=== PATIENT | male | born 1955 | race Caucasian/White ===

== ENCOUNTER 2017-11-17 22:07 | Inpatient (IN) ==
[2017-11-18] MEDS ORDERED: D5% in Water 1,000 ML IVC PRN (03:33)
[2017-11-18] MEDS ORDERED: *HR* Dextrose 50 % in Water (Syg) 50 ML SYRINGE IVP PRN (03:33)
[2017-11-18] MEDS ORDERED: Dextrose Gel 15 GM/37.5 ML TUBE PO PRN ×2 (03:33)
--- NOTE | 2017-11-18 03:34 | Internal Med History&Physical ---
Date of Encounter: 11/18/17 Time of Encounter: 03:11 Internal Medicine - H&P: HPI Chief complaint: Shortness of breath Admitted From: Hospital to Hospital Transfer Plans for Post Hospital Care: Home History of present illness: Mr. Connor is a 61 year old male with past medical history of depression, Gerd , obesity, hypertension, CAD S/P CABG, osteoarthritis, hyperlipidemia, type II diabetes, CARRIE. Patient has a smoking history but is not a current smoker (quit about 25 years ago). He sees , who he states believes the patient may have COPD and is undergoing testing. He did not qualify for home oxygen during his last outpatient pulmonology visit. He presented to [facility] today with chief complaint of shortness of breath that has been occurring for about 3 days. He states he had nonproductive cough and shortness of breath. He reported sinus congestion as well. He went to the urgent care for this on Saturday and was given Keflex and cough syrup that was not relieving his symptoms. Patient states that his cough was so bad it was causing him pain in his rib area and keeping him up at night. He denies nausea , vomiting, diarrhea, fever. He does report chills. He denies any chest pain, hematuria, hematochezia, melena. He does have increased shortness of breath with exertion. Patient denies any recent sick contacts. Upon arrival to [facility], his vitals were as follows: temperature 98.4, pulse 103, respirations 24, blood pressure 165/70, pulse ox 80 % on room air. His oxygen saturation's were as low as 83%. Later oxygen saturation's increased to 92% on 2 L nasal cannula. He was given duonebs x2, 1 dose of Levaquin, acetaminophen, and blood cultures were obtained. EKG was done at the emergency department that showed sinus tachycardia with rate of 105 , first-degree AV block. Chest x-ray done at [facility] showed cardiomegaly, suspected left basilar opacity. Patient was transferred to [facility] at the request of the patient's family. Labs at [facility] were as follows: CBC: WBC 10.3, hemoglobin 11.6, hematocrit 34.9, platelets to 49, neutrophils 70.9%, lymphocytes 18.2% BMP: sodium 134, potassium 4.2, chloride 99, bicarb 26, glucose 183, B19, creatinine .81, GFR 102, calcium 9.1, albumin 3.5, glucose 183 BNP 324 troponin negative Past Med Surg Social Fam HX - Past Medical History Medical history: asthma, coronary artery disease, diabetes, hypertension, other Psychiatric history: no psych history - Past Surgical History Surgical History: no surgical history - Social History Smoking Status: Never smoker Smokeless Tobacco Status: No Alcohol use: none Drug use: none Internal Medicine - H&P: Meds Cyclobenzaprine [Flexeril] 10 mg PO TID #30 tablet 06/02/15 [Rx] Ibuprofen [Motrin] 800 mg PO Q8HR #30 tablet 06/02/15 [Rx] MethylPREDNISolone [Medrol] 4 mg PO DAILY 6 Days tablet 06/02/15 [Rx] Acetaminophen w/Cod 300-30 mg [Tylenol w/Codeine #3] 1 each PO Q8HR PRN #20 tablet 07/23/15 [Rx] Methocarbamol [Robaxin] 500 mg PO HS #20 tablet 07/23/15 [Rx] Ipratropium/Albuterol Neb [Duoneb] 3 ml IH Q4HR PRN #1 vial.neb 05/27/16 [Rx] predniSONE [Prednisone] 20 mg PO BID #8 tablet 05/27/16 [Rx] Promethazine/Dextromethorphan [Promethazine-Dm Syrup] 5 ml PO Q6HR PRN #120 ml 11/15/17 [Rx] cephALEXin [Keflex] 500 mg PO QID #40 capsule 11/15/17 [Rx] 3 Allergy/AdvReac Type Severity Reaction Status Date / Time No Known Allergies Allergy Verified 06/02/15 19:50 All Systems PM: A 10-system review of systems was performed and is negative for pertinent findings except as documented above in the HPI. - Constitutional Constitutional: as per HPI - EENT Eyes: as per HPI Ears: as per HPI Nose, mouth and throat: as per HPI - Breasts Breasts: as per HPI - Cardiovascular Cardiovascular ROS IM: as per HPI - Respiratory Respiratory: as per HPI - Gastrointestinal Gastrointestinal: as per HPI - Genitourinary Genitourinary ROS male: as per HPI - Musculoskeletal Musculoskeletal ROS IM: as per HPI - Integumentary Integumentary IM: as per HPI - Neurological Neurological ROS: as per HPI - Psychiatric Psychiatric: as per HPI - Endocrine Endocrine IM: as per HPI - Hematologic/Lymphatic Hematologic/Lymphatic: as per HPI - Allergic/Immunologic Allergic/Immunologic: as per HPI - Constitutional Vitals: Temp Pulse Resp BP Pulse Ox 98.0 F 87 20 151/59 95 11/18/17 02:59 11/18/17 02:59 11/18/17 02:59 11/18/17 02:59 11/18/17 02:59 General appearance: Present: mild distress (While respiratory distress), A&O X 3 , morbidly obese, pleasant, answers questions appropriately Exam: Significant abdominal obesity present. - Head Head exam: Present: atraumatic, normocephalic - Neck Neck exam general surgery: Present: supple, trachea midline - Respiratory Additional comments: Decreased breath sounds present throughout all lung bedoya. Mild Expiratory wheezing present and bilateral upper lobes - Cardiovascular Cardiovascular exam: Present: distant heart sounds - GI/Abdominal GI/Abdominal exam: Present: distended, normal bowel sounds, soft Additional comments: Significant abdominal obesity present. Abdomen is distended, nontender, normal bowel sounds present. - Extremities Exam Extremities exam: Present: pedal edema (+1 bilateral lower extremity pitting edema present.). Absent: cyanotic - Neurological Exam Neurological exam: Present: alert, oriented X3, no focal deficits - Psychiatric Psychiatric exam: Present: normal affect, normal mood Internal Med - H&P Results - Labs CBC & Chem 7: 11/18/17 03:50 11/18/17 03:50 - Assessment and plan (1) Sepsis Current Visit: Yes Status: Acute Assessment and plan: Patient transferred from [facility] at his request Tachycardia, tachypnea, suspected source of infection: left lung pneumonia patient failed outpatient treatment with antibiotics. Patient received 2 doses of duonebs, Tylenol, Levaquin at [facility]. Plan: blood cultures ordered at [facility], repeat blood cultures ordered here. Levaquin day 2 scheduled and PRN DuoNebs cough suppression, pain control IV methylprednisolone sputum culture pending check legionella, strep pneumo Ag Qualifiers: Sepsis type: sepsis due to unspecified organism Qualified Code(s): A41.9 - Sepsis, unspecified organism (2) Community acquired pneumonia Current Visit: Yes Status: Acute Assessment and plan: Plan as above Qualifiers: Laterality: left Lung location: lower lobe of lung Qualified Code(s): J18.1 - Lobar pneumonia, unspecified organism (3) COPD exacerbation Current Visit: Yes Status: Acute Assessment and plan: COPD exacerbation secondary to community acquired pneumonia. Plan as above (4) CARRIE (obstructive sleep apnea) Current Visit: Yes Status: Acute Assessment and plan: Patient wears his CPAP at home and brought it with him to the hospital. Will continue. (5) Type 2 diabetes mellitus Current Visit: Yes Status: Acute Assessment and plan: Hold metformin medium dose sliding scale insulin ACHS Accu checks Qualifiers: Diabetes mellitus skilled nursing insulin use: unspecified terminal make up operator insulin use status Diabetes mellitus complication status: with unspecified complications Qualified Code(s): E11.8 - Type 2 diabetes mellitus with unspecified complications (6) GERD (gastroesophageal reflux disease) Current Visit: Yes Status: Acute Assessment and plan: Continue home medications once verified Qualifiers: Esophagitis presence: esophagitis presence not specified Qualified Code(s) : K21.9 - Gastro-esophageal reflux disease without esophagitis (7) Obesity Current Visit: Yes Status: Chronic Qualifiers: Obesity type: due to excess calories Obesity classification: unspecified obesity classification Serious obesity comorbidity presence: with serious comorbidity Qualified Code(s): E66.09 - Other obesity due to excess calories (8) CAD (coronary artery disease) Current Visit: Yes Status: Acute Assessment and plan: S/P CABG continue home meds once verified Qualifiers: Coronary Disease-Associated Artery/Lesion type: bypass graft, autologous artery Associated angina: angina presence unspecified Qualified Code(s): I25.810 - Atherosclerosis of coronary artery bypass graft(s) without angina pectoris (9) Hyperlipidemia Current Visit: Yes Status: Acute Qualifiers: Hyperlipidemia type: unspecified Qualified Code(s): E78.5 - Hyperlipidemia , unspecified (10) Hypertension Current Visit: Yes Status: Acute Assessment and plan: Resumed home medications once verified PRN hydralazine Qualifiers: Hypertension type: essential hypertension Qualified Code(s): I10 - Essential (primary) hypertension (11) DVT prophylaxis Current Visit: Yes Status: Acute Assessment and plan: Heparin SQ - Time Spent With Patient Total time spent is greater than 50% in coordination of care (as documented) at patient's floor/unit and/or counseling patient:
[2017-11-18] MEDS ORDERED: Naloxone 0.4 MG/ML INJ IVP PRN (03:46)
[2017-11-18] MEDS ORDERED: Acetaminophen 325 MG TABLET PO PRN (03:46)
[2017-11-18] MEDS ORDERED: Menthol 9.1 MG LOZENGE PO PRN (03:46)
[2017-11-18] MEDS ORDERED: Ipratropium/Albuterol Neb 3 ML IH PRN (04:03)
[2017-11-18 04:05] LABS: Basophils # 0.1 K/mcL (0.0-0.2); Basophils % 0.6 %; Eosinophils # 0.1 K/mcL (0.0-0.6); Eosinophils % 1.5 %; Hematocrit 34.8 % (37.5-50.1); Hemoglobin 11.7 g/dL (12.9-16.9); Immature Granulocytes % 0.3 % (0-4); Lymphocytes # 2.1 K/mcL (0.6-4.6); Lymphocytes % 21.5 %; Mean Corpuscular HGB Conc 33.6 g/dL (31.6-35.5); Mean Corpuscular Hemoglobin 29.1 pg (28.0-33.3); Mean Corpuscular Volume 86.6 fL (83.0-100.0); Mean Platelet Volume 10.8 fL (9.4-12.4); Monocytes # 0.8 K/mcL (0.0-1.3); Neutrophils # 6.6 K/mcL (1.6-8.9); Platelet Count 253 K/mcL (140-400); Red Blood Count 4.02 M/mcL (4.19-5.50); Red Cell Distribution Width 15.8 % (11.5-14.5); Segmented Neutrophils % 68.1 %
[2017-11-18] MEDS: Insulin LISPRO 300 UNITS/3 ML VIAL SQ SCH ×5 (04:23→20:56)
[2017-11-18 04:26] LABS: BUN/Creatinine Ratio 12 (6-26); Blood Urea Nitrogen 9 mg/dL (8-23); Calcium 9.6 mg/dL (8.6-10.3); Carbon Dioxide 26 mEq/L (23-29); Chloride 100 mEq/L (98-107); Glucose 179 mg/dL (70-105); Osmolality,Calculated 281 (280-300); Potassium 3.8 mEq/L (3.5-5.1); Sodium 134 mEq/L (136-145); eGFR For African Americans > 60 (> 60); eGFR For Non-African Americans > 60 (> 60)
[2017-11-18] MEDS: *HR* Heparin 5,000 UNIT/ML VIAL SQ SCH ×3 (04:31→20:57)
[2017-11-18] MEDS: GuaiFENesin Liq 200 MG/10 ML UDC PO SCH ×3 (04:32→18:00)
--- NOTE | 2017-11-18 04:41 | Event Note ---
Date of Encounter: 11/18/17 Time of Encounter: 04:35 Patient was seen and examined. I agree with the H&P as written by the Resident Physician. Briefly, patient is 61 m who is being worked up for COPD in the outpatient setting, CAD s/p CABG, HLD, DM, CARRIE comes from [facility] with acute hypoxic resp failure. Been SOB for a couple of days or so. Nonproductive cough. Work up there showed LLL PNA. Given Levaquin and nebs and sent here. He is stable here needing 2 L O2 via nasal cannula. Please see H&P for a list of labs done at [facility]. A/O x3, NAD RRR. S1, S2, No m/r/g Diminished with exp wheezes Abd soft, NT, ND, +BS 1+ LE edema. 2+ DP Nonfocal Admit for acute hypoxic resp failure secondary to CAP/COPD exacerbation IV levaquin. IV solumedrol Nebs O2 support urine strep/legionella/sputum cx Blood cx collected at outside facility Insulin sliding scale Resume home meds once verified DVT ppx.
[2017-11-18] MEDS: Ipratropium/Albuterol Neb 3 ML IH SCH ×6 (08:01→23:58)
[2017-11-18] MEDS: MethylPREDNISolone 40 MG/ML VIAL IVP SCH ×2 (08:11→15:00)
[2017-11-18] MEDS: Levofloxacin 750 MG/150 ML 750 MG/150 ML BAG IVPB SCH (08:12)
[2017-11-18] MEDS: *HR* HYDROcodone/Acet 5/325 mg TABLET PO PRN ×2 (10:00→22:21)
--- NOTE | 2017-11-18 15:20 | Event Note ---
Date of Encounter: 11/18/17 Time of Encounter: 11:00 Patient seen and evaluated by nocturnalist earlier this morning and also by myself Patient is a 61-year-old female found to be hypoxic secondary to community acquired pneumonia. 1. CAP Continue IV Levaquin Continue Solu-Medrol and DuoNebs Sputum/blood cultures pending
[2017-11-18] MEDS ORDERED: DEXTROMETHORPHAN PO PRN (17:57)
[2017-11-18] MEDS ORDERED: PROMETHAZINE PO PRN (17:57)
[2017-11-18] MEDS: Lisinopril 20 MG TABLET PO SCH (18:38)
[2017-11-18] MEDS: traZODone 50 MG TABLET PO SCH (20:55)
[2017-11-18] MEDS: Pregabalin 75 MG CAPSULE PO SCH (20:55)
[2017-11-18] MEDS ORDERED: (Ropinirole Hcl [Requip Xl] 4 MG) PO SCH (21:00)
[2017-11-18] MEDS ORDERED: Benzonatate 100 MG CAPSULE PO PRN (23:07)
[2017-11-19] MEDS: MethylPREDNISolone 40 MG/ML VIAL IVP SCH ×3 (00:06→17:18)
[2017-11-19] MEDS: GuaiFENesin Liq 200 MG/10 ML UDC PO SCH ×4 (00:06→17:17)
[2017-11-19] MEDS: Ipratropium/Albuterol Neb 3 ML IH SCH ×5 (04:06→19:50)
[2017-11-19] MEDS: *HR* Heparin 5,000 UNIT/ML VIAL SQ SCH ×3 (07:19→21:32)
[2017-11-19] MEDS: Insulin LISPRO 300 UNITS/3 ML VIAL SQ SCH ×3 (07:44→17:18)
[2017-11-19] MEDS: Pregabalin 75 MG CAPSULE PO SCH ×2 (07:45→21:31)
[2017-11-19] MEDS: Lisinopril 20 MG TABLET PO SCH (07:45)
[2017-11-19] MEDS: Levofloxacin 750 MG/150 ML 750 MG/150 ML BAG IVPB SCH (07:46)
[2017-11-19] MEDS: Aspirin Enteric Coated 81 MG Tablet PO SCH (07:46)
[2017-11-19] MEDS: *HR* Pioglitazone 45 MG TABLET PO SCH (07:46)
[2017-11-19] MEDS: Insulin DETEMIR 100 UNIT/ML X5UNITS SQ SCH (08:07)
[2017-11-19] MEDS ORDERED: Lisinopril 20 MG TABLET PO SCH (09:00)
[2017-11-19] MEDS ORDERED: INSULIN DEGLUDEC 70 UNIT SQ SCH (09:00)
[2017-11-19] MEDS ORDERED: (Linagliptin [Tradjenta] 5 MG) PO SCH (09:00)
[2017-11-19] MEDS ORDERED: Albuterol 2.5 MG/3 ML NEBULIZER IH PRN (09:02)
--- NOTE | 2017-11-19 10:36 | Internal Med Progress Note ---
Date of Encounter: 11/19/17 Time of Encounter: 10:36 - Assessment and plan (1) COPD exacerbation Current Visit: Yes Status: Acute Assessment and plan: Improving. Taper down IV steroids as tolerated. Continue empiric IV antibiotics, breathing treatments, supplemental oxygen. Blood and sputum cultures negative. Face to face evaluation completed for home oxygen requirement. Patient would benefit from continuous home oxygen via nasal cannula at 2 L/m. He is noted to be ambulatory at home, would benefit from portable home oxygen. primary health organisation manager aware. (2) Community acquired pneumonia Current Visit: Yes Status: Acute Assessment and plan: Chest x-ray in the emergency room apparently showed suspected left basilar opacity. Continue IV Levaquin. Blood and sputum cultures negative. Check respiratory infection panel. Supportive care and supplemental oxygen. Qualifiers: Laterality: left Lung location: lower lobe of lung Qualified Code(s): J18.1 - Lobar pneumonia, unspecified organism (3) Sepsis Current Visit: Yes Status: Ruled-out Assessment and plan: Low suspicion. Patient presented with tachycardia and tachypnea, likely due to acute exacerbation of COPD. Cultures negative. Continue IV antibiotics. Qualifiers: Sepsis type: sepsis due to unspecified organism Qualified Code(s): A41.9 - Sepsis, unspecified organism (4) DVT prophylaxis Current Visit: Yes Status: Acute (5) Type 2 diabetes mellitus Current Visit: Yes Status: Acute Assessment and plan: Patient has steroid-induced hyperglycemia. Received first dose of basal insulin this morning. Continue current insulin regimen with Accu-Chek blood glucose monitoring. Diabetic diet. Expected blood sugars to improve with tapering down IV steroids. Qualifiers: Diabetes mellitus terminal gauger insulin use: with terminal gauger use Diabetes mellitus complication status: with hyperglycemia Qualified Code(s): E11.65 - Type 2 diabetes mellitus with hyperglycemia; Z79.4 - skilled nursing (current) use of insulin (6) CARRIE (obstructive sleep apnea) Current Visit: Yes Status: Chronic Assessment and plan: Patient is on nocturnal BiPAP at home, continue the same. (7) GERD (gastroesophageal reflux disease) Current Visit: Yes Status: Chronic Qualifiers: Esophagitis presence: esophagitis presence not specified Qualified Code(s) : K21.9 - Gastro-esophageal reflux disease without esophagitis (8) CAD (coronary artery disease) Current Visit: Yes Status: Chronic Qualifiers: Coronary Disease-Associated Artery/Lesion type: bypass graft [place] vs. transplanted heart: [place] heart Associated angina: without angina Qualified Code(s): I25.810 - Atherosclerosis of coronary artery bypass graft(s) without angina pectoris (9) Hyperlipidemia Current Visit: Yes Status: Chronic Qualifiers: Hyperlipidemia type: unspecified Qualified Code(s): E78.5 - Hyperlipidemia , unspecified (10) Hypertension Current Visit: Yes Status: Chronic Qualifiers: Hypertension type: essential hypertension Qualified Code(s): I10 - Essential (primary) hypertension - Time Spent With Patient Total time spent is greater than 50% in coordination of care (as documented) at patient's floor/unit and/or counseling patient: - Subjective Interval history: Improving shortness of breath, continues to have cough. Requiring supplemental oxygen at rest. No chest pain, fever, chills, leg swelling. - Constitutional Vitals: Temp Pulse Resp BP Pulse Ox 97.7 F 79 18 158/81 94 11/19/17 07:03 11/19/17 07:03 11/19/17 07:03 11/19/17 07:03 11/19/17 07:59 General appearance: Present: A&O X 3, morbidly obese, answers questions appropriately - Respiratory Respiratory exam: Present: decreased breath sounds (B/L decreased air entry). Absent: accessory muscle use, rales, rhonchi, wheezes - Cardiovascular Cardiovascular exam: Present: RRR, +S1, +S2. Absent: diastolic murmur, gallop, rubs, systolic murmur - GI/Abdominal GI/Abdominal exam: Present: normal bowel sounds, soft (obese), no peritoneal signs. Absent: distended, tenderness - Extremities Exam Extremities exam: Present: full ROM, pedal edema (nonpitting), warm, radial pulses palpable and symmetrical. Absent: calf tenderness, cyanotic - Neurological Exam Neurological exam: Present: CN II-XII intact, oriented X3, no focal deficits. Absent: pronater drift, facial droop, speech deficit - Skin Skin exam: Present: dry, intact Internal Medicine: Result - Labs CBC & Chem 7: 11/19/17 11:06 11/19/17 11:06 Consult Discharge Plan - Plan Referrals: Mukul Ortega MD [Primary Care Provider] -
[2017-11-19 11:20] LABS: Basophils % 0.2 %; Hematocrit 35.7 % (37.5-50.1); Hemoglobin 11.8 g/dL (12.9-16.9); Immature Granulocytes % 0.6 % (0-4); Lymphocytes # 1.4 K/mcL (0.6-4.6); Lymphocytes % 12.2 %; Mean Corpuscular HGB Conc 33.1 g/dL (31.6-35.5); Mean Corpuscular Hemoglobin 28.6 pg (28.0-33.3); Mean Corpuscular Volume 86.7 fL (83.0-100.0); Mean Platelet Volume 10.8 fL (9.4-12.4); Monocytes # 0.4 K/mcL (0.0-1.3); Monocytes % 3.7 %; Neutrophils # 9.5 K/mcL (1.6-8.9); Platelet Count 275 K/mcL (140-400); Red Blood Count 4.12 M/mcL (4.19-5.50); Red Cell Distribution Width 15.9 % (11.5-14.5); Segmented Neutrophils % 83.3 %
[2017-11-19 11:39] LABS: BUN/Creatinine Ratio 18 (6-26); Blood Urea Nitrogen 17 mg/dL (8-23); Calcium 9.7 mg/dL (8.6-10.3); Carbon Dioxide 26 mEq/L (23-29); Chloride 93 mEq/L (98-107); Glucose 417 mg/dL (70-105); Osmolality,Calculated 285 (280-300); Potassium 4.6 mEq/L (3.5-5.1); Sodium 128 mEq/L (136-145); eGFR For African Americans > 60 (> 60); eGFR For Non-African Americans > 60 (> 60)
[2017-11-19 19:27] LABS: Adenovirus Not Detected (Not Detect); Bordetella Pertussis Not Detected (Not Detect); Chlamydophila pneumoniae Not Detected (Not Detect); Coronavirus 229E Not Detected (Not Detect); Coronavirus HKU1 Not Detected (Not Detect); Coronavirus NL63 Not Detected (Not Detect); Coronavirus OC43 Not Detected (Not Detect); Human Metapneumovirus Not Detected (Not Detect); Human Rhinovirus/Enterovirus Not Detected (Not Detect); Influenza A Subtype 2009 H1 Not Detected (Not Detect); Influenza A Untypeable Not Detected (Not Detect); Influenza B Not Detected (Not Detect); Mycoplasma pneumoniae Not Detected (Not Detect); Parainfluenza Virus 1 Not Detected (Not Detect); Parainfluenza Virus 2 Not Detected (Not Detect); Parainfluenza Virus 3 ***DETECTED*** (Not Detect); Parainfluenza Virus 4 Not Detected (Not Detect); Respiratory Syncytial Virus Not Detected (Not Detect)
[2017-11-19] MEDS: rOPINIRole 1 MG TABLET PO SCH (21:32)
[2017-11-19] MEDS: traZODone 50 MG TABLET PO SCH (21:32)
[2017-11-19] MEDS ORDERED: Insulin LISPRO 300 UNITS/3 ML VIAL SQ SCH (21:40)
[2017-11-20] MEDS: Ipratropium/Albuterol Neb 3 ML IH SCH ×4 (00:10→11:51)
[2017-11-20] MEDS: GuaiFENesin Liq 200 MG/10 ML UDC PO SCH ×3 (01:01→11:37)
[2017-11-20] MEDS: *HR* Heparin 5,000 UNIT/ML VIAL SQ SCH (05:19)
[2017-11-20] MEDS: MethylPREDNISolone 40 MG/ML VIAL IVP SCH (05:19)
[2017-11-20 07:11] LABS: Basophils % 0.2 %; Hematocrit 36.5 % (37.5-50.1); Hemoglobin 11.8 g/dL (12.9-16.9); Immature Granulocytes % 0.6 % (0-4); Lymphocytes # 2.9 K/mcL (0.6-4.6); Lymphocytes % 21.1 %; Mean Corpuscular HGB Conc 32.3 g/dL (31.6-35.5); Mean Corpuscular Hemoglobin 27.8 pg (28.0-33.3); Mean Corpuscular Volume 86.1 fL (83.0-100.0); Mean Platelet Volume 10.7 fL (9.4-12.4); Monocytes # 0.8 K/mcL (0.0-1.3); Monocytes % 5.6 %; Neutrophils # 9.9 K/mcL (1.6-8.9); Platelet Count 305 K/mcL (140-400); Red Blood Count 4.24 M/mcL (4.19-5.50); Red Cell Distribution Width 15.9 % (11.5-14.5); Segmented Neutrophils % 72.5 %
[2017-11-20 07:32] LABS: BUN/Creatinine Ratio 21 (6-26); Blood Urea Nitrogen 18 mg/dL (8-23); Calcium 9.9 mg/dL (8.6-10.3); Carbon Dioxide 26 mEq/L (23-29); Chloride 95 mEq/L (98-107); Glucose 347 mg/dL (70-105); Osmolality,Calculated 284 (280-300); Potassium 4.5 mEq/L (3.5-5.1); Sodium 129 mEq/L (136-145); eGFR For African Americans > 60 (> 60); eGFR For Non-African Americans > 60 (> 60)
[2017-11-20] MEDS: rOPINIRole 1 MG TABLET PO SCH (08:33)
[2017-11-20] MEDS: Insulin DETEMIR 100 UNIT/ML X5UNITS SQ SCH (08:33)
[2017-11-20] MEDS: *HR* Pioglitazone 45 MG TABLET PO SCH (08:33)
[2017-11-20] MEDS: Aspirin Enteric Coated 81 MG Tablet PO SCH (08:33)
[2017-11-20] MEDS: Lisinopril 20 MG TABLET PO SCH (08:33)
[2017-11-20] MEDS: Pregabalin 75 MG CAPSULE PO SCH (08:34)
[2017-11-20] MEDS: Insulin LISPRO 300 UNITS/3 ML VIAL SQ SCH ×2 (08:34→11:37)
[2017-11-20] MEDS: Levofloxacin 750 MG/150 ML 750 MG/150 ML BAG IVPB SCH (08:35)
--- NOTE | 2017-11-20 10:54 | Discharge Summary ---
- NOTES TO OUTPATIENT PROVIDER Notes to Outpatient Provider: Acute COPD, parainfluenza+, has home O2 now Orders not resulted at time of discharge: Pending orders 11/18/17 03:50 Culture,Blood [BC] Stat 11/18/17 04:26 Legionella Antigen [RM] Routine Streptococcal pneumoniae urin antigen [S. Pneumoniae Antigen] [RM] Routine Date of Encounter: 11/20/17 Time of Encounter: 10:52 - Discharge Diagnosis (1) COPD exacerbation Priority: Primary Status: Acute (2) Community acquired pneumonia Priority: Primary Status: Acute Qualifiers: Laterality: left Lung location: lower lobe of lung Qualified Code(s): J18.1 - Lobar pneumonia, unspecified organism (3) Sepsis Priority: Primary Status: Ruled-out Qualifiers: Sepsis type: sepsis due to unspecified organism Qualified Code(s): A41.9 - Sepsis, unspecified organism (4) Type 2 diabetes mellitus Priority: Secondary Status: Chronic Qualifiers: Diabetes mellitus middle or intermediate school principal insulin 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: with retirement use Diabetes mellitus complication status: with hyperglycemia Qualified Code(s): E11.65 - Type 2 diabetes mellitus with hyperglycemia; Z79.4 - group home (current) use of insulin (5) CARRIE (obstructive sleep apnea) Priority: Secondary Status: Chronic (6) GERD (gastroesophageal reflux disease) Priority: Secondary Status: Chronic Qualifiers: Esophagitis presence: esophagitis presence not specified Qualified Code(s) : K21.9 - Gastro-esophageal reflux disease without esophagitis (7) CAD (coronary artery disease) Priority: Secondary Status: Chronic Qualifiers: Coronary Disease-Associated Artery/Lesion type: bypass graft [place] vs. transplanted heart: [place] heart Associated angina: without angina Qualified Code(s): I25.810 - Atherosclerosis of coronary artery bypass graft(s) without angina pectoris (8) Hyperlipidemia Priority: Secondary Status: Chronic Qualifiers: Hyperlipidemia type: unspecified Qualified Code(s): E78.5 - Hyperlipidemia , unspecified (9) Hypertension Priority: Secondary Status: Chronic Qualifiers: Hypertension type: essential hypertension Qualified Code(s): I10 - Essential (primary) hypertension Hospital course: Mr. Connor is a 61 year old male with history of COPD, who was admitted with worsening shortness of breath and cough. Chest x-ray in the emergency room apparently showed suspected left basilar opacity. He was also noted to be in mild acute exacerbation of COPD. He was started on IV antibiotics, IV steroids , bronchodilator nebulization, supplemental oxygen and supportive care. Patient 's clinical condition significantly improved on this regimen. Blood cultures remain negative. Respiratory infection panel was positive for parainfluenza 3. Home oxygen evaluation was completed, patient is being discharged on 2 L/m continue supplemental oxygen via nasal cannula. He is otherwise medically stable for discharge with oral antibiotics and steroids and outpatient follow- up. Discharge discussed with: patient - Time Spent with Patient Total time spent providing and/or coordinating discharge services: Greater than 30 minutes (50 min) - Discharge Medications Prescriptions: Guaifenesin [Mucinex] 600 mg PO BID #10 tab.er.12h Levofloxacin [Levaquin] 750 mg PO DAILY #3 tablet predniSONE [PredniSONE] 60 mg PO DAILY 12 Days #20 tablet Home Medications: Cyclobenzaprine [Flexeril] 10 mg PO TID #30 tablet 06/02/15 [Rx] Ipratropium/Albuterol Neb [Duoneb] 3 ml IH Q4HR PRN #1 vial.neb 05/27/16 [Rx] Promethazine/Dextromethorphan [Promethazine-Dm Solution] 5 ml PO Q6HR PRN #120 ml 11/15/17 [Rx] Albuterol Sulfate [Proair Hfa] 1 - 2 puff IH Q6H PRN 11/18/17 [History] Aspirin Enteric Coated [Aspirin EC] 81 mg PO DAILY 11/18/17 [History] Atorvastatin [Lipitor] 40 mg PO HS 11/18/17 [History] Carvedilol [Coreg] 12.5 mg PO BID 11/18/17 [History] Dexlansoprazole [Dexilant] 60 mg PO DAILY 11/18/17 [History] Insulin Degludec [Tresiba Flextouch U-200] 70 unit SQ QAM 11/18/17 [History] Linagliptin [Tradjenta] 5 mg PO DAILY 11/18/17 [History] Lisinopril [Zestril] 40 mg PO DAILY 11/18/17 [History] Metformin HCl [Glucophage] 1,000 mg PO BID 11/18/17 [History] Oxybutynin [Ditropan] 5 mg PO BID 11/18/17 [History] Pioglitazone [Actos] 45 mg PO DAILY 11/18/17 [History] Pregabalin [Lyrica] 150 mg PO BID 11/18/17 [History] Ropinirole HCl [Requip Xl] 4 mg PO HS 11/18/17 [History] Trazodone HCl 200 mg PO HS 11/18/17 [History] Guaifenesin [Mucinex] 600 mg PO BID #10 tab.er.12h 11/20/17 [Rx] Levofloxacin [Levaquin] 750 mg PO DAILY #3 tablet 11/20/17 [Rx] predniSONE [PredniSONE] 60 mg PO DAILY 12 Days #20 tablet 11/20/17 [Rx] Allergies/Adverse Reactions: 3 Allergy/AdvReac Type Severity Reaction Status Date / Time No Known Allergies Allergy Verified 06/02/15 19:50 Date of admission: 11/18/17 03:02 Primary care physician: Mukul Ortega, Discharging clinician: Kiara Vizcarra Anticipated date of discharge: 11/20/17 - Constitutional Vitals: Temp Pulse Resp BP Pulse Ox 97.8 F 81 17 137/54 96 11/20/17 07:26 11/20/17 07:26 11/20/17 07:32 11/20/17 07:26 11/20/17 07:32 General appearance: Present: A&O X 3, morbidly obese, answers questions appropriately - Respiratory Respiratory exam: Present: decreased breath sounds (B/L decreased air entry), CTAB. Absent: accessory muscle use, rales, rhonchi, wheezes - Patient Status Disposition: Home, Self-Care Condition: Fair Functional capacity at discharge: independent ambulation Overall status at discharge: patient is progressing back to baseline - Discharge Instructions Instructions: Prednisone (By mouth), Diabetes Mellitus Type 2 in Adults (DC), Chronic Obstructive Pulmonary Disease (DC) Follow Up With: Mukul Ortega MD [Primary Care Provider] - 11/27/17 11:00 am (Please follow up as schedule...) Additional Instructions: F/up with PCP in 1-2 weeks - Diet and Activity Activity: resume usual activities as tolerated, wear oxygen at all times Diet: diabetic diet, low fat, low cholesterol, low salt diet
[2017-11-20 11:34] VITALS: BP 123/68
[2017-11-20] MEDS ORDERED: Insulin LISPRO 300 UNITS/3 ML VIAL SQ SCH (12:00)
[2017-11-20] MEDS ORDERED: predniSONE 20 MG TABLET PO SCH (18:00)
== END 2017-11-20 15:27 | disposition home or self-care (01) | DRG 190 ==
LOC: 2ANU → SUATTDRO 11-18 03:02
PROVIDERS: ADMIT Hospitalist; ATTEND Internal Medicine

== ENCOUNTER 2018-07-22 20:26 | Observation (INO) ==
--- NOTE | 2018-07-22 20:54 | Emergency Department Note ---
Disposition Clinical Impression: Dehydration, HERNANDEZ (acute kidney injury) Altered mental status Qualifiers: Altered mental status type: unspecified Qualified Code(s): R41.82 - Altered mental status, unspecified Disposition: Admitted As Inpatient Condition: Good Referrals: Mukul Ortega MD [Primary Care Provider] - Forms: ED Satisfaction Letter Time of Disposition: 23:17 Syncope HPI - General Chief Complaint: ED Syncope Stated Complaint: syncope Time Seen by Provider: 07/22/18 20:38 Source: patient, EMS Mode of arrival: EMS Limitations: no limitations Nursing Notes Reviewed: Yes Vital Signs Reviewed: Yes - History of Present Illness HPI Narrative: Patient is a 62-year-old male who 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 On his way back from going to the restroom he says he just sat down on the ground and that is when EMS was called. Patient is denying all symptoms at present he does not have any fevers or chills, cold-like symptoms, cough, abdominal pain, nausea or vomiting, constipation or diarrhea, numbness or tingling, headache. Patient states he has a past medical history of diabetes, hypertension, hyperlipidemia, circulatory problems. Patient is not aware of what medication he takes and states that he would need to ask his who is not currently in the room. - Related Data Home Medications Medication Instructions Recorded Confirmed Albuterol Sulfate [Proair Hfa] 1 - 2 puff IH Q6H PRN 11/18/17 11/18/17 Aspirin Enteric Coated [Aspirin EC] 81 mg PO DAILY 11/18/17 11/18/17 Atorvastatin [Lipitor] 40 mg PO HS 11/18/17 11/18/17 Carvedilol [Coreg] 12.5 mg PO BID 11/18/17 11/18/17 Dexlansoprazole [Dexilant] 60 mg PO DAILY 11/18/17 11/18/17 Insulin Degludec [Tresiba 70 unit SQ QAM 11/18/17 11/18/17 Flextouch U-200] Linagliptin [Tradjenta] 5 mg PO DAILY 11/18/17 11/18/17 Lisinopril [Zestril] 40 mg PO DAILY 11/18/17 11/18/17 Metformin HCl [Glucophage] 1,000 mg PO BID 11/18/17 11/18/17 Oxybutynin [Ditropan] 5 mg PO BID 11/18/17 11/18/17 Pioglitazone [Actos] 45 mg PO DAILY 11/18/17 11/18/17 Pregabalin [Lyrica] 150 mg PO BID 11/18/17 11/18/17 Ropinirole HCl [Requip Xl] 4 mg PO HS 11/18/17 11/18/17 Trazodone HCl 200 mg PO HS 11/18/17 11/18/17 Previous Rx's Medication Instructions Recorded Cyclobenzaprine [Flexeril] 10 mg PO TID #30 tablet 06/02/15 Ipratropium/Albuterol Neb [Duoneb] 3 ml IH Q4HR PRN #1 vial.neb 05/27/16 Promethazine/Dextromethorphan 5 ml PO Q6HR PRN #120 ml 11/15/17 [Promethazine-Dm Solution] Guaifenesin [Mucinex] 600 mg PO BID #10 tab.er.12h 11/20/17 Levofloxacin [Levaquin] 750 mg PO DAILY #3 tablet 11/20/17 predniSONE [PredniSONE] 60 mg PO DAILY 12 Days #20 tablet 11/20/17 Orphenadrine [Norflex] 100 mg PO BID PRN #10 tablet.er 12/13/17 Allergies Allergy/AdvReac Type Severity Reaction Status Date / Time No Known Allergies Allergy Verified 12/13/17 19:28 All systems ED: reviewed and negative except as stated. Review of Systems: As Per HPI Constitutional: Denies: fever, chills ENT ED: Denies: congestion Cardiovascular: Denies: chest pain Respiratory: Denies: cough, dyspnea Gastrointestinal: Denies: abdominal pain, nausea, vomiting, diarrhea, constipation Musculoskeletal: Denies: back pain, neck pain Neurological: Reports: weakness. Denies: headache Past Medical History - Past Medical History Medical history: Reports: asthma, coronary artery disease, diabetes, hyperlipidemia, hypertension, thyroid disease, other Surgical history: Reports: no surgical history Psychiatric history: Reports: anxiety - Social History Smoking Status: Former smoker Smokeless Tobacco Status: No Alcohol use: Reports: none Drug use: Reports: none Physical Exam - General Limitations: no limitations General appearance: alert - Head Head exam: atraumatic, normocephalic - Eye Eye exam: Present: EOMI, miosis - ENT ENT exam: mucous membranes dry - Neck Neck exam: Present: normal inspection, full ROM - Chest Chest inspection: Present: normal inspection, symmetric chest wall rise - Respiratory Respiratory exam: Present: other (lung sound difficult to auscultate, pt cannot sit up) - Cardiovascular Cardiovascular exam: Present: regular rate, normal rhythm - Abdominal Exam Abdominal exam: Present: soft, Non-Tender - Extremities Exam Extremities exam: Present: normal inspection, full ROM - Back Exam Back exam: Present: normal inspection, full ROM - Neurological Exam Neurological exam: Present: alert, CN II-XII intact - Expanded Neurological Exam Patient oriented to: Present: person, place Speech: Present: fluid speech Cranial nerves: EOM function (II, III, IV, ): Normal, facial sensation (V): Normal, facial palsy (VII): Normal, spinal accessory function (XI): Normal, tongue deviation (XII): Normal Cerebellar function: finger to nose: Normal Motor strength - LUE: 5/5 Motor strength - RUE: 5/5 Motor strength - LLE: 5/5 Motor strength - RLE: 5/5 Coma Scale Eye Opening: Spontaneous Coma Scale Motor Response: Obeys Commands Coma Scale Verbal Response: Oriented Coma Scale Total: 15 - Psychiatric Psychiatric exam: Present: normal affect, normal mood - Skin Skin exam: Present: warm, dry, intact Course Course Narrative: Pt is slightly confused on exam, thinks it is Saturday and Spring, and does not know what medication he takes, but otherwise appears well and does not appear to be in any acute distress. Pt had a run of VTach per the forklift technician, but he did not appear to be in any distress and pulses were normal. Pt is diabetic and appears to be somewhat dehydrated. Will perform syncope workup to include screening labs - CBC, BMP, troponin, bedside glucose. EKG. CXR. Pt has a small spot of blood on his lip, could be related to chapped lips or could be related to syncope. Will also obtain neuro-imaging. - Reevaluation(s) Reevaluation #1: at bedside states that pt was confused when he got home from work, and could not appropriately answer any questions. She states that he was walking back from the bathroom and his legs got really weak and he simply sat down. He did not lose consciousness and he did not hit his head. She states that he seems much better now. Pt continues to have no complaints. Time: 21:53 Reevaluation #2: Dr Marley, hospitalist, accepts. Time: 23:17 Vital Signs Temperature 100 F H 07/22/18 20:28 Pulse Rate 96 07/22/18 20:28 Respiratory Rate 18 07/22/18 20:28 Blood Pressure 129/49 07/22/18 20:28 O2 Sat by Pulse Oximetry 97 07/22/18 20:28 Temperature 100 F H 07/22/18 20:28 Pulse Rate 92 07/22/18 22:11 Respiratory Rate 16 07/22/18 22:11 Blood Pressure 131/113 07/22/18 22:11 O2 Sat by Pulse Oximetry 97 07/22/18 22:11 Oxygen Delivery Oxygen Delivery Room Air Syncope - MDM Narrative Medical decision making narrative: Pt's creatinine was 1.33 and baseline is always under or at 1.00 going back in previous visits to 2014. Pt additionally has a leukocytosis with neutrophil predominance which could indicate an occult infection. Pt was unable to give a urine sample and bedside ultrasound revealed an empty bladder. Pt will be admitted for HERNANDEZ, dehydration, and weakness. Hospitalist, Dr. Marley, accepts. Pt and family verbalized understanding and agreement with the plan. Pt was given an opportunity to ask questions and all of his concerns were addressed. Pt r emained stable while in the department. project technician reported a run of V-tach, but I was at bedside and pt was moving his arms and was not in any distress. I checked his pulse during this episode and it was the normal in rate and rhythm. - Medical Records Medical records reviewed: Yes I reviewed the patient's medical records. - Lab Data Lab results reviewed: Yes I reviewed the patient's lab results. Result diagrams: 07/22/18 20:37 07/22/18 20:37 Lab Results 07/22/18 07/22/18 07/22/18 Range/Units 20:37 20:37 21:08 WBC 15.6 H (4.3-11.1) K/mcL RBC 4.22 (4.19-5.50) M/mcL Hgb 11.9 L (12.9-16.9) g/dL Hct 36.8 L (37.5-50.1) % MCV 87.2 (83.0-100.0) fL MCH 28.2 (28.0-33.3) pg MCHC 32.3 (31.6-35.5) g/dL RDW 16.1 H (11.5-14.5) % Plt Count 271 (140-400) K/mcL MPV 11.3 (9.4-12.4) fL Immature Gran % 0.5 (0-4) % Seg Neutrophils % 82.6 % Lymphocytes % 11.5 % Monocytes % 4.2 % Eosinophils % 0.9 % Basophils % 0.3 % Neutrophils # 12.9 H (1.6-8.9) K/mcL Lymphocytes # 1.8 (0.6-4.6) K/mcL Monocytes # 0.7 (0.0-1.3) K/mcL Eosinophils # 0.1 (0.0-0.6) K/mcL Basophils # 0.1 (0.0-0.2) K/mcL Sodium 136 (136-145) mEq/L Potassium 4.3 (3.5-5.1) mEq/L Chloride 94 L (98-107) mEq/L Carbon Dioxide 32 H (23-29) mEq/L BUN 25 H (8-23) mg/dL Creatinine 1.33 H (0.70-1.30) mg/dL Est GFR ( Amer) > 60 (> 60) Est GFR (Non-Af Amer) 54 L (> 60) BUN/Creatinine Ratio 19 (6-26) Glucose 171 H (70-105) mg/dL POC Glucose 166 H (70-99) mg/dL Calculated Osmolality 290 (280-300) Calcium 10.3 (8.6-10.3) mg/dL Troponin I < 0.03 (< 0.04) ng/mL - Radiology Data Radiology results reviewed: Yes I reviewed the patient's radiology results. Chest X-Ray 07/22/18 20:51 IMPRESSION: Stable portable study. D/ / Chacha oMrales Cha, MD / Chacha Morales Cha, MD Interpreting Provider: Chacha Morales Cha, MD Head CT 07/22/18 21:00 IMPRESSION: No acute intracranial process identified. Persistent ventriculomegaly, worsened from the previous exam. This is of uncertain etiology. D/ / 07/22/2018 21:41:57 Arturo Mendoza MD / clotilde Interpreting Provider: Arturo Mendoza MD - EKG Data EKG attestation: Yes I reviewed and interpreted this EKG. EKG results narrative: HR 96, rhythm sinus, axis normal. SC 266 (prolonged), QRS 105, QTc 476. Isolated ST depression in V2 without any reciprocal changes. Good R wave progression with isoelectric point V3-V4.
[2018-07-22 21:15] LABS: Hematocrit 36.8 % (37.5-50.1); Hemoglobin 11.9 g/dL (12.9-16.9); Immature Granulocytes % 0.5 % (0-4); Lymphocytes % 11.5 %; Mean Corpuscular HGB Conc 32.3 g/dL (31.6-35.5); Mean Corpuscular Hemoglobin 28.2 pg (28.0-33.3); Mean Corpuscular Volume 87.2 fL (83.0-100.0); Mean Platelet Volume 11.3 fL (9.4-12.4); Monocytes % 4.2 %; Platelet Count 271 K/mcL (140-400); Red Blood Count 4.22 M/mcL (4.19-5.50); Red Cell Distribution Width 16.1 % (11.5-14.5); Segmented Neutrophils % 82.6 %
[2018-07-22 21:16] LABS: Basophils # 0.1 K/mcL (0.0-0.2); Basophils % 0.3 %; Eosinophils # 0.1 K/mcL (0.0-0.6); Eosinophils % 0.9 %; Lymphocytes # 1.8 K/mcL (0.6-4.6); Monocytes # 0.7 K/mcL (0.0-1.3); Neutrophils # 12.9 K/mcL (1.6-8.9)
[2018-07-22 21:26] LABS: BUN/Creatinine Ratio 19 (6-26); Blood Urea Nitrogen 25 mg/dL (8-23); Calcium 10.3 mg/dL (8.6-10.3); Carbon Dioxide 32 mEq/L (23-29); Chloride 94 mEq/L (98-107); Glucose 171 mg/dL (70-105); Osmolality,Calculated 290 (280-300); Potassium 4.3 mEq/L (3.5-5.1); Sodium 136 mEq/L (136-145); eGFR For Non-African Americans 54 (> 60)
[2018-07-22 21:27] LABS: Troponin I < 0.03 ng/mL (< 0.04)
[2018-07-22] MEDS ORDERED: 0.9 % Sodium Chloride 1,000 ML IVC ONE (22:57)
--- NOTE | 2018-07-22 23:30 | Emergency Department Note ---
Disposition Clinical Impression: Dehydration, HERNANDEZ (acute kidney injury) Altered mental status Qualifiers: Altered mental status type: unspecified Qualified Code(s): R41.82 - Altered mental status, unspecified Disposition: Admitted As Inpatient Condition: Good General Adult HPI - General Chief complaint: ED Syncope Stated complaint: syncope/ams Time Seen by Provider: 07/22/18 20:38 Source: patient, EMS Mode of arrival: EMS Limitations: no limitations Nursing Notes Reviewed: Yes Vital Signs Reviewed: Yes - History of Present Illness Pain Scale: 0 - Related Data Home Medications Medication Instructions Recorded Confirmed Albuterol Sulfate [Proair Hfa] 1 - 2 puff IH Q6H PRN 11/18/17 11/18/17 Aspirin Enteric Coated [Aspirin EC] 81 mg PO DAILY 11/18/17 11/18/17 Atorvastatin [Lipitor] 40 mg PO HS 11/18/17 11/18/17 Carvedilol [Coreg] 12.5 mg PO BID 11/18/17 11/18/17 Dexlansoprazole [Dexilant] 60 mg PO DAILY 11/18/17 11/18/17 Insulin Degludec [Tresiba 70 unit SQ QAM 11/18/17 11/18/17 Flextouch U-200] Linagliptin [Tradjenta] 5 mg PO DAILY 11/18/17 11/18/17 Lisinopril [Zestril] 40 mg PO DAILY 11/18/17 11/18/17 Metformin HCl [Glucophage] 1,000 mg PO BID 11/18/17 11/18/17 Oxybutynin [Ditropan] 5 mg PO BID 11/18/17 11/18/17 Pioglitazone [Actos] 45 mg PO DAILY 11/18/17 11/18/17 Pregabalin [Lyrica] 150 mg PO BID 11/18/17 11/18/17 Ropinirole HCl [Requip Xl] 4 mg PO HS 11/18/17 11/18/17 Trazodone HCl 200 mg PO HS 11/18/17 11/18/17 Previous Rx's Medication Instructions Recorded Cyclobenzaprine [Flexeril] 10 mg PO TID #30 tablet 06/02/15 Ipratropium/Albuterol Neb [Duoneb] 3 ml IH Q4HR PRN #1 vial.neb 05/27/16 Promethazine/Dextromethorphan 5 ml PO Q6HR PRN #120 ml 11/15/17 [Promethazine-Dm Solution] Guaifenesin [Mucinex] 600 mg PO BID #10 tab.er.12h 11/20/17 Levofloxacin [Levaquin] 750 mg PO DAILY #3 tablet 11/20/17 predniSONE [PredniSONE] 60 mg PO DAILY 12 Days #20 tablet 11/20/17 Orphenadrine [Norflex] 100 mg PO BID PRN #10 tablet.er 12/13/17 Allergies Allergy/AdvReac Type Severity Reaction Status Date / Time No Known Allergies Allergy Verified 12/13/17 19:28 Constitutional: Denies: fever, chills ENT ED: Denies: congestion Cardiovascular: Denies: chest pain Respiratory: Denies: cough, dyspnea Gastrointestinal: Denies: abdominal pain, nausea, vomiting, diarrhea, constipation Musculoskeletal: Denies: back pain, neck pain Neurological: Reports: weakness. Denies: headache Past Medical History - Past Medical History Medical history: Reports: asthma, coronary artery disease, diabetes, hyperlipidemia, hypertension, thyroid disease, other Surgical history: Reports: no surgical history Psychiatric history: Reports: anxiety - Social History Smoking Status: Former smoker Smokeless Tobacco Status: No Alcohol use: Reports: none Drug use: Reports: none Physical Exam - General Limitations: no limitations General appearance: alert Course Vital Signs Temperature 100 F H 07/22/18 20:28 Pulse Rate 96 07/22/18 20:28 Respiratory Rate 18 07/22/18 20:28 Blood Pressure 129/49 07/22/18 20:28 O2 Sat by Pulse Oximetry 97 07/22/18 20:28 Temperature 97.8 F 07/23/18 03:29 Pulse Rate 81 07/23/18 03:29 Respiratory Rate 16 07/23/18 03:29 Blood Pressure 142/67 07/23/18 03:29 O2 Sat by Pulse Oximetry 95 07/23/18 03:29 Oxygen Delivery Oxygen Delivery Nasal Cannula Medical Decision Making - Medical Records Medical records reviewed: Yes I reviewed the patient's medical records. - Lab Data Lab results reviewed: Yes I reviewed the patient's lab results. Result diagrams: 07/23/18 03:32 07/22/18 20:37 Lab Results 07/22/18 07/22/18 07/22/18 Range/Units 20:37 20:37 21:08 WBC 15.6 H (4.3-11.1) K/mcL RBC 4.22 (4.19-5.50) M/mcL Hgb 11.9 L (12.9-16.9) g/dL Hct 36.8 L (37.5-50.1) % MCV 87.2 (83.0-100.0) fL MCH 28.2 (28.0-33.3) pg MCHC 32.3 (31.6-35.5) g/dL RDW 16.1 H (11.5-14.5) % Plt Count 271 (140-400) K/mcL MPV 11.3 (9.4-12.4) fL Immature Gran % 0.5 (0-4) % Seg Neutrophils % 82.6 % Lymphocytes % 11.5 % Monocytes % 4.2 % Eosinophils % 0.9 % Basophils % 0.3 % Neutrophils # 12.9 H (1.6-8.9) K/mcL Lymphocytes # 1.8 (0.6-4.6) K/mcL Monocytes # 0.7 (0.0-1.3) K/mcL Eosinophils # 0.1 (0.0-0.6) K/mcL Basophils # 0.1 (0.0-0.2) K/mcL Sodium 136 (136-145) mEq/L Potassium 4.3 (3.5-5.1) mEq/L Chloride 94 L (98-107) mEq/L Carbon Dioxide 32 H (23-29) mEq/L BUN 25 H (8-23) mg/dL Creatinine 1.33 H (0.70-1.30) mg/dL Est GFR ( Amer) > 60 (> 60) Est GFR (Non-Af Amer) 54 L (> 60) BUN/Creatinine Ratio 19 (6-26) Glucose 171 H (70-105) mg/dL POC Glucose 166 H (70-99) mg/dL Calculated Osmolality 290 (280-300) Calcium 10.3 (8.6-10.3) mg/dL Troponin I < 0.03 (< 0.04) ng/mL - Radiology Data Radiology results reviewed: Yes I reviewed the patient's radiology results. Chest X-Ray 07/22/18 20:51 IMPRESSION: Stable portable study. D/ / Chacha Morales Cha, MD / Chacha Morales Cha, MD Interpreting Provider: Chacha Morales Cha, MD Head CT 07/22/18 21:00 IMPRESSION: No acute intracranial process identified. Persistent ventriculomegaly, worsened from the previous exam. This is of uncertain etiology. D/ / 07/22/2018 21:41:57 Arturo Mendoza MD / clotilde Interpreting Provider: Arturo Mendoza MD - EKG Data EKG #1 EKG attestation: Yes I reviewed and interpreted this EKG. EKG results narrative: EKG shows a sinus rhythm with first-degree AV block. Ventricular rate of 96. No acute ST segment elevation or depression. No significant change from prior EKG dated 05/27/2016. Attestation Statement - Attestation Attestation: I, Harmeet Rodríguez MD, personally evaluated this patient and discussed their management with the resident physician. I reviewed the resident's note and agree with the documented findings, medical decision making, and plan of care. 62-year-old male presents to the emergency department with a complaint of generalized weakness with weakness in his legs causing him to have to sit down in his floor at home because he was unable to ambulate. reports that he became very confused with this episode. He had no loss of consciousness. He denied any chest pain or other specific physical symptoms other than just generalized weakness. No focal weakness. By the time he arrived here reports his confusion is much improved. Patient is alert and oriented. He does seem mildly confused when trying to answer some questions. On examination patient is a well-developed morbidly obese male in no acute distress. He is alert and oriented. No cyanosis or diaphoresis. Breath sounds are decreased but equal bilaterally. No definite rales or wheezes noted. Heart regular rate and rhythm. Abdomen soft and nontender with present bowel sounds. No gross focal neurological deficits. Repeat temperature at time of my exam was 98.1. Labs reviewed. Patient does have a leukocytosis. Also acute kidney injury. Urinalysis pending. Chest x-ray negative. Head CT shows ventriculomegaly which was present on prior CTs. EKG shows a sinus rhythm with first-degree AV block with no acute ischemic changes. The hospitalist, Dr. Marley, was consulted and accepted admission of the patient.
[2018-07-23] MEDS ORDERED: Naloxone 0.4 MG/ML INJ IVP PRN ×2 (00:57→01:06)
[2018-07-23] MEDS ORDERED: D5% in Water 1,000 ML IVC PRN (01:05)
[2018-07-23] MEDS ORDERED: *HR* Dextrose 50 % in Water (Syg) 50 ML SYRINGE IVP PRN (01:05)
[2018-07-23] MEDS ORDERED: Dextrose Gel 15 GM/37.5 ML TUBE PO PRN ×2 (01:05)
[2018-07-23] MEDS: Insulin LISPRO 300 UNITS/3 ML VIAL SQ SCH ×5 (01:57→21:40)
--- NOTE | 2018-07-23 02:44 | Internal Med History&Physical ---
Date of Encounter: 07/23/18 Time of Encounter: 02:38 Internal Medicine - H&P: HPI Chief complaint: AMS/ Weakness History of present illness: Mr. Connor is a 62 year old male with a past medical history of depression, GERD, obesity, hypertension, coronary artery disease status post CABG, hyperlipidemia, CARRIE and type 2 diabetes who presents to the ED due to lower extremity weakness and confusion. According to the patient, he was in his usual state of health today. Around early evening he had dinner and shortly thereafter went to use the bathroom. After urinating, patient reports that he got up and then noted weakness in his lower extremities to the extent that his legs almost gave out. Patient states that he did not fall but slowly sat down on the floor and was subsequently unable to get up. No reports of head trauma and patient denies any loss of consciousness. Per ED reports, patient's and daughter also noted some increased confusion at the time which appears to have resolved by the time the patient arrived to the ED. states that when the patient got home from work he could not appropriately answer questions. During my assessment, patient's family was not at bedside. When I asked the patient about his confusion, he stated that he recalls that his daughter was asking him what her birthday was and he stated that he could not remember. Patient otherwise denies any focal weakness, fever, chills, chest pain, shortness of breath, nausea, vomiting, abdominal pain or diarrhea. Initial laboratory workup was notable only for a elevated white blood cell count and HERNANDEZ. UA was still pending as patient has not been able to provide a urine sample and bladder scan showed no urine in his bladder. Chest x-ray was performed which was unremarkable. A head CT showed no acute intracranial process but persistent ventriculomegaly was seen which appeared to be worsened from previous exam. Past Med Surg Social Fam HX - Past Medical History Medical history: asthma, coronary artery disease, diabetes, hyperlipidemia, hypertension, thyroid disease, other Additional medical history: neuropathy Psychiatric history: anxiety - Past Surgical History Surgical History: appendectomy, coronary bypass (CABG), knee replacement, orthopedic, other Additional surgical history: quad bypass. right knee replacement. left rotator cuff surgery - Social History Smoking Status: Former smoker Smokeless Tobacco Status: No Alcohol use: none Drug use: none - Family History Mother Hx Family Cardiac Disorders: No Hx Family Respiratory Disorders: No Hx Family Cancer: No Hx Family GI Disorders: No Hx Family Genitourinary Disorders: No Hx Family Endocrine Disorder: No Hx Family Musculoskeletal Disorders: No Hx Family Neuromuscular Disorders: No Hx Family Neurologic Disorders: No Hx Family HEENT Disorders: No Hx Family Autoimmune Disorders: No Hx Family Reproductive Disorders: No Hx Family Psychosocial Disorders: No Hx Family Medical Disorders: No Internal Medicine - H&P: Meds Cyclobenzaprine [Flexeril] 10 mg PO TID #30 tablet 06/02/15 [Rx] Ipratropium/Albuterol Neb [Duoneb] 3 ml IH Q4HR PRN #1 vial.neb 05/27/16 [Rx] Promethazine/Dextromethorphan [Promethazine-Dm Solution] 5 ml PO Q6HR PRN #120 ml 11/15/17 [Rx] Albuterol Sulfate [Proair Hfa] 1 - 2 puff IH Q6H PRN 11/18/17 [History] Aspirin Enteric Coated [Aspirin EC] 81 mg PO DAILY 11/18/17 [History] Atorvastatin [Lipitor] 40 mg PO HS 11/18/17 [History] Carvedilol [Coreg] 12.5 mg PO BID 11/18/17 [History] Dexlansoprazole [Dexilant] 60 mg PO DAILY 11/18/17 [History] Insulin Degludec [Tresiba Flextouch U-200] 70 unit SQ QAM 11/18/17 [History] Linagliptin [Tradjenta] 5 mg PO DAILY 11/18/17 [History] Lisinopril [Zestril] 40 mg PO DAILY 11/18/17 [History] Metformin HCl [Glucophage] 1,000 mg PO BID 11/18/17 [History] Oxybutynin [Ditropan] 5 mg PO BID 11/18/17 [History] Pioglitazone [Actos] 45 mg PO DAILY 11/18/17 [History] Pregabalin [Lyrica] 150 mg PO BID 11/18/17 [History] Ropinirole HCl [Requip Xl] 4 mg PO HS 11/18/17 [History] Trazodone HCl 200 mg PO HS 11/18/17 [History] Guaifenesin [Mucinex] 600 mg PO BID #10 tab.er.12h 05/30/18 [Rx] Levofloxacin [Levaquin] 750 mg PO DAILY #3 tablet 11/20/17 [Rx] predniSONE [PredniSONE] 60 mg PO DAILY 12 Days #20 tablet 11/20/17 [Rx] Orphenadrine [Norflex] 100 mg PO BID PRN #10 tablet.er 12/13/17 [Rx] Allergy/AdvReac Type Severity Reaction Status Date / Time No Known Allergies Allergy Verified 12/13/17 19:28 All Systems PM: A 10-system review of systems was performed and is negative for pertinent findings except as documented above in the HPI. - Constitutional Constitutional: no chills, no fever(s), no night sweats - EENT Eyes: no change in vision, no discharge, no pain, no photophobia Ears: no ear discharge, no ear pain, no tinnitus Nose, mouth and throat: no dysphagia, no nasal discharge, no neck pain, no sore throat - Cardiovascular Cardiovascular ROS IM: no chest pain, no diaphoresis, no dyspnea, no lightheadedness, no palpitations, no syncope - Respiratory Respiratory: no cough, no dyspnea, no wheezing, no excessive phlegm production - Gastrointestinal Gastrointestinal: no abdominal pain, no diarrhea, no hematemesis, no hematochezia, no melena, no nausea, no vomiting - Musculoskeletal Musculoskeletal ROS IM: no numbness, no tingling - Integumentary Integumentary IM: no rash, no unusual bruising - Neurological Neurological ROS: no confusion, no convulsions, no focal weakness, no numbness, no tingling, no tremor(s) - Hematologic/Lymphatic Hematologic/Lymphatic: no easy bruising - Constitutional Vitals: Temp Pulse Resp BP Pulse Ox 98.3 F 88 15 122/69 93 07/23/18 00:30 07/23/18 00:30 07/23/18 00:30 07/23/18 00:30 07/23/18 00:30 Exam: General: Alert and oriented 3 sitting and chair not in acute distress Skin:Normal color, no rash, no lesions. HEENT:EOM, pupils equal, round and reactive. Cardiovascular:Normal S1 & S2, no rubs, murmurs or gallops. No JVD. Pulse regular. Lungs:Normal breath sounds, no wheezes or crackles. Abdomen:Soft, non-tender, no rigidity. Extremities:No deformity, no edema or tenderness, no joint swelling or clubbing. Neurological:Normal cognition and motor skills. Lower extremity muscle strength 5 out of 5 bilaterally Pulses:Carotid and radial pulses normal +2. Rest of the physical exam is non contributory Internal Med - H&P Results - Labs CBC & Chem 7: 07/23/18 03:32 07/23/18 03:32 Labs: Short CBC 07/22/18 Range/Units 20:37 WBC 15.6 H (4.3-11.1) K/mcL Hgb 11.9 L (12.9-16.9) g/dL Hct 36.8 L (37.5-50.1) % Plt Count 271 (140-400) K/mcL Neutrophils # 12.9 H (1.6-8.9) K/mcL BMP 07/22/18 20:37 Sodium 136 Potassium 4.3 Chloride 94 L Carbon Dioxide 32 H BUN 25 H Creatinine 1.33 H Glucose 171 H Calcium 10.3 Cardiac Enzymes 07/22/18 Range/Units 20:37 Troponin I < 0.03 (< 0.04) ng/mL - Impressions ITS Impressions Chest X-Ray 07/22/18 20:51 IMPRESSION: Stable portable study. D/ / Chacha Morales Cha, MD / Chacha Morales Cha, MD Interpreting Provider: Chacha Morales Cha, MD Head CT 07/22/18 21:00 IMPRESSION: No acute intracranial process identified. Persistent ventriculomegaly, worsened from the previous exam. This is of uncertain etiology. D/ / 07/22/2018 21:41:57 Arturo Mendoza MD / [facility] Interpreting Provider: Arturo Mendoza MD - Assessment and plan (1) Confusion Current Visit: Yes Status: Acute Assessment and plan: Reports of confusion per family who was not at bedside during my assessment to provide clarification. Per ED reports, stated that he was not answering questions appropriately. Patient appears to be alert oriented 3 and at baselin e at this time. He has no focal deficits on examination. Patient does have what appears to be mild prerenal azotemia and a neutrophilic leukocytosis, however there is no evidence of infection clinically. At this time we have not ruled out a UTI as patient has been unable to provide a urine sample however, denies any symptoms of UTI at this time. CT scan showed persistent ventriculomegaly which appears mildly worsened from previous imaging. Unclear whether this is contributing to his transient confusion. Low suspicion for stroke. Clarification from family members regarding patient's change in mental status would be been beneficial. -We will obtain additional blood work including ammonia level, CPK and TSH -We will provide patient with fluid support -Consider further imaging with MRI versus neurology consult (2) HERNANDEZ (acute kidney injury) Current Visit: Yes Status: Acute Assessment and plan: Patient found to have acute kidney injury with a creatinine of 1.33. Baseline appears to be around 0.8. Likely prerenal. Patient received fluid bolus in the ED. We will see if creatinine improves consistent with prerenal etiology. (3) Lower extremity weakness Current Visit: Yes Status: Acute Assessment and plan: No evidence of decreased muscle strength bilaterally. Patient is morbidly obese however and has had right lower knee replacement surgery in the past. Possible etiologies include dehydration versus underlying infectious etiology versus neurologic given CT findings. -We will obtain PT consult in addition to further workup. Qualifiers: Laterality: bilateral Qualified Code(s): R29.898 - Other symptoms and signs involving the musculoskeletal system (4) Type 2 diabetes mellitus Current Visit: No Status: Chronic Assessment and plan: Blood glucose checks. Sliding scale insulin. Qualifiers: Diabetes mellitus nursing home insulin use: with superintendent container terminal use Diabetes mellitus complication status: with hyperglycemia Qualified Code(s): E11.65 - Type 2 diabetes mellitus with hyperglycemia; Z79.4 - shelter (current) use of insulin (5) CARRIE (obstructive sleep apnea) Current Visit: No Status: Chronic Assessment and plan: Continue with CPAP at night (6) Hypertension Current Visit: No Status: Chronic Qualifiers: Hypertension type: essential hypertension Qualified Code(s): I10 - Essential (primary) hypertension (7) DVT prophylaxis Current Visit: No Status: Acute - Time Spent With Patient Total time spent is greater than 50% in coordination of care (as documented) at patient's floor/unit and/or counseling patient:
[2018-07-23 04:45] LABS: Basophils # 0.1 K/mcL (0.0-0.2); Basophils % 0.4 %; Eosinophils # 0.1 K/mcL (0.0-0.6); Eosinophils % 0.8 %; Hematocrit 33.5 % (37.5-50.1); Hemoglobin 10.9 g/dL (12.9-16.9); Immature Granulocytes % 0.4 % (0-4); Lymphocytes # 2.5 K/mcL (0.6-4.6); Lymphocytes % 15.4 %; Mean Corpuscular HGB Conc 32.5 g/dL (31.6-35.5); Mean Corpuscular Hemoglobin 28.2 pg (28.0-33.3); Mean Corpuscular Volume 86.6 fL (83.0-100.0); Mean Platelet Volume 11.6 fL (9.4-12.4); Monocytes # 0.9 K/mcL (0.0-1.3); Monocytes % 5.3 %; Neutrophils # 12.4 K/mcL (1.6-8.9); Platelet Count 246 K/mcL (140-400); Red Blood Count 3.87 M/mcL (4.19-5.50); Red Cell Distribution Width 16.2 % (11.5-14.5); Segmented Neutrophils % 77.7 %
[2018-07-23 04:50] LABS: INR 1.2; Prothrombin Time 13.3 Seconds (9.4-12.1)
[2018-07-23 05:12] LABS: Alanine Aminotransferase 11 Units/L (7-52); Albumin 3.7 g/dL (3.5-5.7); Albumin/Globulin Ratio 1.2 (1.1-2.2); Alkaline Phosphatase 68 Units/L (34-104); Aspartate Amino Transferase 13 Units/L (13-39); BUN/Creatinine Ratio 21 (6-26); Bilirubin,Total 0.5 mg/dL (0.3-1.0); Blood Urea Nitrogen 27 mg/dL (8-23); Calcium 9.6 mg/dL (8.6-10.3); Carbon Dioxide 27 mEq/L (23-29); Chloride 97 mEq/L (98-107); Globulin 3.2 g/dL (2.4-3.5); Glucose 169 mg/dL (70-105); Magnesium 1.4 mg/dL (1.6-2.6); Osmolality,Calculated 291 (280-300); Phosphorous 3.7 mg/dL (2.7-4.5); Potassium 3.7 mEq/L (3.5-5.1); Sodium 136 mEq/L (136-145); Total Protein 6.9 g/dL (6.4-8.9); eGFR For Non-African Americans 57 (> 60)
[2018-07-23 05:18] LABS: Thyroid Stimulating Hormone 4.357 mcIU/mL (0.340-5.600)
[2018-07-23] MEDS ORDERED: 0.9 % Sodium Chloride 500 ML IVC ONE (06:17)
[2018-07-23] MEDS: *HR* Heparin 5,000 UNIT/ML VIAL SQ SCH ×3 (06:30→21:41)
[2018-07-23 08:12] LABS: Bilirubin,Urine Negative (Negative); Blood,Urine Negative (Negative); Clarity,Urine Clear (Clear); Color,Urine Yellow (Yellow); Glucose,Urine (UA) Normal (Normal); Ketones,Urine Negative (Negative); Leukocyte Esterase,Urine Negative (Negative); Nitrite,Urine Negative (Negative); Protein,Urine 100 mg/dL (Neg-Trace); Specific Gravity,Urine 1.012 (1.010-1.025); Urobilinogen,Urine Normal (Normal)
[2018-07-23 08:35] LABS: Squamous Epithelial Cell,Urine Few per lpf (None-Few); WBC,Urine 0-3 per hpf (0-3)
--- NOTE | 2018-07-23 09:07 | Internal Med Progress Note ---
Hospitalist Progress Note - Encounter Date of Encounter: 07/23/18 Time of Encounter: 09:07 - Exam Vitals: Temp Pulse Resp BP Pulse Ox 97.6 F 76 16 142/78 95 07/23/18 07:17 07/23/18 07:17 07/23/18 07:17 07/23/18 07:17 07/23/18 07:17 - Assessment and Plan (1) DVT prophylaxis Current Visit: No Status: Acute (2) Type 2 diabetes mellitus Current Visit: No Status: Chronic (3) CARRIE (obstructive sleep apnea) Current Visit: No Status: Chronic (4) Hypertension Current Visit: No Status: Chronic (5) HERNANDEZ (acute kidney injury) Current Visit: Yes Status: Acute (6) Confusion Current Visit: Yes Status: Acute (7) Lower extremity weakness Current Visit: Yes Status: Acute - Time Spent with Patient Total time spent is greater than 50% in coordination of care (as documented) at patient's floor/unit and/or counseling patient: Internal Medicine: Result - Labs CBC & Chem 7: 07/23/18 03:32 07/23/18 03:32 Labs: Short CBC 07/22/18 07/23/18 Range/Units 20:37 03:32 WBC 15.6 H 16.0 H (4.3-11.1) K/mcL Hgb 11.9 L 10.9 L (12.9-16.9) g/dL Hct 36.8 L 33.5 L (37.5-50.1) % Plt Count 271 246 (140-400) K/mcL Neutrophils # 12.9 H 12.4 H (1.6-8.9) K/mcL BMP 07/22/18 07/23/18 20:37 03:32 Sodium 136 136 Potassium 4.3 3.7 Chloride 94 L 97 L Carbon Dioxide 32 H 27 BUN 25 H 27 H Creatinine 1.33 H 1.28 Glucose 171 H 169 H Calcium 10.3 9.6 Cardiac Enzymes 07/22/18 Range/Units 20:37 Troponin I < 0.03 (< 0.04) ng/mL Liver Function 07/23/18 Range/Units 03:32 Total Bilirubin 0.5 (0.3-1.0) mg/dL AST 13 (13-39) Units/L ALT 11 (7-52) Units/L Alkaline Phosphatase 68 (34-104) Units/L Albumin 3.7 (3.5-5.7) g/dL - ABG Interpretation ABG results: PT/INR, D-dimer PT 13.3 Seconds (9.4-12.1) H 07/23/18 03:32 - Impressions Impressions Chest X-Ray 07/22/18 20:51 IMPRESSION: Stable portable study. D/ / Chacha Morales Cha, MD / Chacha Morales Cha, MD Interpreting Provider: Chacha Morales Cha, MD Head CT 07/22/18 21:00 IMPRESSION: No acute intracranial process identified. Persistent ventriculomegaly, worsened from the previous exam. This is of uncertain etiology. D/ / 07/22/2018 21:41:57 Arturo Mendoza MD / [facility] Interpreting Provider: Arturo Mendoza MD Consult Discharge Plan - Plan Referrals: Mukul Ortega MD [Primary Care Provider] - Carmina Enriquez [Partnered Physician] - 08/05/18 9:30 am (2) Type 2 diabetes mellitus Qualifiers: Diabetes mellitus assisted insulin use: with salvage determiner use Diabetes mellitus complication status: with hyperglycemia Qualified Code(s): E11.65 - Type 2 diabetes mellitus with hyperglycemia; Z79.4 - retirement (current) use of insulin (4) Hypertension Qualifiers: Hypertension type: essential hypertension Qualified Code(s): I10 - Essential (primary) hypertension (7) Lower extremity weakness Qualifiers: Laterality: bilateral Qualified Code(s): R29.898 - Other symptoms and signs involving the musculoskeletal system
--- NOTE | 2018-07-23 09:08 | Event Note ---
Date of Encounter: 07/23/18 Time of Encounter: 09:08 Patient was seen and examined by hospitalist services earlier this morning. Currently patient appears to be neurologically intact family states he that his mental baseline. Tased to experience lower extremity weakness and standing neurology has been consulted and appreciate their recommendations. Also nursing staff updated the patient was unable to void and had a 900 mL residual. Toscano catheter was placed and urology has an consulted. I did discuss the treatment plan with the patient as who is at bedside both verbalized understanding
--- NOTE | 2018-07-23 10:56 | Neurology - Consult Note ---
Addendum entered and electronically signed by Rios Llanos MD 07/23/18 17:39: Patient is see and examined in the presence of CHIEF TECHNICIAN Jem Pena and Case discussed and imaging studies reviewed together and i agree with his history taking, physical examination and assessment and plan. [facility] this is a 62 year old man with morbid obesity who developed an episode of transient leg weakness and near syncope. Patient denies any other previous similar episodes and his neurological examination currently is back to baseline and nonfocal examination. CT of head reported ventriculomegaly which was increased from previous study during 2009 but clinically he has no typical hydrocephalus features including no memory difficulty, no latonya and bladder disturbances no magnetic gait. However, serial monitoring in terms of CT of head is recommended in one year or prn if symptoms worsen Await MRI of brain and carotid artery duplex study. If these studies returns negative then no further testing will be recommended from neurology perspective. Patient is to call office in the future to follow up on repeat CT of head. Cause of his near syncope and leg weakness unclear. Please continue medical and supportive care Original Note: Date of Encounter: 07/23/18 Time of Encounter: 10:51 Assessment and Plan (1) Lower extremity weakness Current Visit: Yes Status: Acute Patient presented with bilateral lower extremity weakness occurring yesterday evening; which resulted in him lowering himself to the ground and being unable to stand unassisted thereafter. He attributes this to being mentally and physically exhausted after a long day at work. He has not had any prior episodes of this in the past. Consider near syncope as cause of extremity weakness. TTE 04/10 with LVEF 60-65%, mild LVH, mild LVDD. Obtain bilateral carotid Dopplers to assess for stenosis. CT of head in the ED revealed an increased ventriculomegaly compared to prior studies. There is concern as to whether or not this was contributing to his symptoms. However, the patient denies any chronic confusion or memory difficulty, he denies any loss of bowel/bladder function or ataxic gait. Of note, he does have an unexplained leukocytosis with no obvious source of infection with negative urinalysis and no pulmonary infection. Defer to primary team to rule out additional source of infection contributing to weakness.. Continue MRI of head to rule out acute pathology that may explain his weakness and confusion. He has had fluctuating blood pressures throughout this study therefore recommend obtaining orthostatic vital signs to evaluate for orthostasis At the time of my assessment the patient reports that he is back to baseline status. His neurological exam is nonfocal and nonlateralizing. I am concerned that the ventriculomegaly could be contributing to his lower extremity weakness however, he is reporting that this is a first-time event. He has been instructed that he should have outpatient follow-up with neurology and repeat CT imaging of the head within the next year for further monitoring of ventriculomegaly. Neurology will continue to follow at this time. Qualifiers: Laterality: bilateral Qualified Code(s): R29.898 - Other symptoms and signs involving the musculoskeletal system (2) Confusion Current Visit: Yes Status: Acute Resolved Continue to treat as above History of Present Illness Chief complaint: bilateral leg weakness HPI: Mr. Connor is a 62 year old male with a PMH of HTN, CAD, HLD, CARRIE, DM type II and morbid obesity. He presents to [facility] with bilateral lower extremity weakness and confusion. The patient reports that he had a very busy day yesterday and that he came home tired. In addition to this he reports that when arriving at home he felt exhausted and mentally fatigued and that his thought he was acting strange. His spouse who is at bedside states that the patient was having difficulty responding to simple inquiries such as recollection of his daughters date of . The patient reports that he was not aware that he seems confused. He does note that he ambulated to the bathroom and urinated. Once he was finished urinating his legs began to feel very weak so he slowly lowered himself to the floor and subsequently was unable to get back up. This is what prompted him to seek care in the ED. Neurology has been consulted for evaluation of altered mental status and weakness. The patient denies having any headaches, vision changes, dizziness, slurred speech, dysarthria, hemiparesis, paresthesias, hemiplegia, ataxia, loss of bowel/bladder function. Again, he does not recall being confused but his spouse reports that his mental status was altered. His initial lab workup did reveal leukocytosis and an acute kidney injury which appears most likely to be caused by prerenal azotemia. Urinalysis negative for UTI. Chest x-ray was found to be unremarkable for acute pulmonary process. CT of head showed no acute intercranial process but did show increased ventriculomegaly compared to prior study. Past Med Surg Social Fam HX - Past Medical History Medical history: asthma, coronary artery disease, diabetes, hyperlipidemia, hypertension, thyroid disease, other Additional medical history: neuropathy Psychiatric history: anxiety - Past Surgical History Surgical History: appendectomy, coronary bypass (CABG), knee replacement, orthopedic, other Additional surgical history: quad bypass. right knee replacement. left rotator cuff surgery - Social History Smoking Status: Former smoker Smokeless Tobacco Status: No Alcohol use: none Drug use: none - Family History Mother Hx Family Cardiac Disorders: No Hx Family Respiratory Disorders: No Hx Family Cancer: No Hx Family GI Disorders: No Hx Family Genitourinary Disorders: No Hx Family Endocrine Disorder: No Hx Family Musculoskeletal Disorders: No Hx Family Neuromuscular Disorders: No Hx Family Neurologic Disorders: No Hx Family HEENT Disorders: No Hx Family Autoimmune Disorders: No Hx Family Reproductive Disorders: No Hx Family Psychosocial Disorders: No Hx Family Medical Disorders: No Medications and Allergies Aspirin Enteric Coated [Aspirin EC] 81 mg PO DAILY 11/18/17 [History] Atorvastatin [Lipitor] 40 mg PO HS 11/18/17 [History] Carvedilol [Coreg] 12.5 mg PO BID 11/18/17 [History] Dexlansoprazole [Dexilant] 60 mg PO DAILY 11/18/17 [History] Insulin Degludec [Tresiba Flextouch U-200] 70 unit SQ QAM 11/18/17 [History] Linagliptin [Tradjenta] 5 mg PO DAILY 11/18/17 [History] Metformin HCl [Glucophage] 1,000 mg PO BID 11/18/17 [History] Oxybutynin [Ditropan] 5 mg PO BID 11/18/17 [History] Pioglitazone [Actos] 45 mg PO DAILY 11/18/17 [History] Pregabalin [Lyrica] 150 mg PO BID 11/18/17 [History] Ropinirole HCl [Requip Xl] 4 mg PO HS 11/18/17 [History] Trazodone HCl 200 mg PO HS 11/18/17 [History] Amlodipine Besylate 1 tab PO DAILY 07/23/18 [History] Losartan-Hctz 50-12.5 mg Tab 1 tab PO BID 07/23/18 [History] Allergy/AdvReac Type Severity Reaction Status Date / Time No Known Allergies Allergy Verified 12/13/17 19:28 All Systems: The remainder of the systems were reviewed and are negative Review of Systems: REVIEW OF SYSTEMS GENERAL: Negative for any nausea, vomiting, fevers, or weight loss POSITIVE: Chills, fatigue and malaise NEUROLOGIC: Negative for any vision changes, facial asymmetry, dysphagia, dysarthria, hemiparesis, hemisensory deficits, vertigo, ataxia, seizures, coordination difficulties PSYCH: Negative for agitation/irritability, anxiety, delirium, SI/HI, personality changes HEENT: Negative for any head trauma, neck trauma, neck stiffness, photophobia, phonophobia, dysphagia, CARDIAC: Negative for any chest pain, palpitations, fast heart rate, dyspnea on exertion, HTN, paroxysmal nocturnal dyspnea, peripheral edema. GASTROINTESTINAL: Negative for any abdominal pain, nausea, vomiting, bright red blood per rectum, melena. GENITOURINARY: Negative for any dysuria, hematuria, incontinence. ENDOCRINE: Thyroid trouble, heat/cold intolerance, excessive sweating MUSCULOSKELETAL: Joint pain, stiffness, loss of strengt (bilateral/unilateral), arthritis (mono or poly) Joint swelling (mono or poly), muscle pain/swelling, limitations to motor activity or tolerance INTEGUMENTARY: Negative for any rashes, eruptions, dryness, changes in skin/ hair, nails Physical Examination - Vital Signs Vital Signs: Initial Vital Signs Temp Pulse Resp BP Pulse Ox 100 F H 96 18 129/49 97 07/22/18 20:28 07/22/18 20:28 07/22/18 20:28 07/22/18 20:28 07/22/18 20:28 - Exam Exam: Examination: General Examination: In not acute distress, resting comfortably in bedside nancy *CONSTITUTIONAL: obese male, hygeine is appropriate *GENERAL APPEARANCE OF PATIENT who appears generally unhealthy *EYES: pupils equal, round, reactive to light and accommodation, conjunctiva clear without masses or ulcerations, fundi normal. *CARDIOVASCULAR RRR, S1, S2, no mumurs, rubs, or gallops, no peripheral edema, distal temperature normal, dorsalis pedis pulses normal. 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 No abnormal movements, fasciculations or atrophy identified. Neurological: *ORIENTATION to time and place, person and situation *RECURRENT AND REMOTE MEMORY intact *ATTENTION AND CONCENTRATION are normal *LANGUAGE FUNCTION no significant aphasia or dysarthia was noted. *FUND OF KNOWLEDGE aware of current events, past history, vocabulary *MENTAL attention span and concentration normal. *CN II optic fundi were normal, no papilledema noted. *CN III,IV, PERRLA extraocular eye movements were full, no nystagmus and no ptosis noted. *CN V shows normal sensation and jaw opens symmetrically. *CN VII shows normal facial movement symmetrically, upper and lower bilaterally. *CN VIII chronic hearing loss right ear (uses hearing aide) *CN IX,,X palate elevated symmetrically and normal gag reflex was noted. *CN XI normal strength in the sternocleidomastoid muscles, symmetrical shoulder shrugging. *CN XII tongue protruded in the midline, with normal strength and mo vement. *SENSORY EXAMINATION light touch intact *REFLEXES: deep tendon reflexes were normal and symmetrical , grade 2/4 diffusely, no pathological reflexes were noted. *CEREBELLAR TESTING normal finger to nose *PAIN LEVEL 0/10 Results - Laboratory Findings CBC and BMP: 07/23/18 03:32 07/23/18 03:32 Abnormal lab findings: Abnormal lab results WBC 16.0 K/mcL (4.3-11.1) H 07/23/18 03:32 RBC 3.87 M/mcL (4.19-5.50) L 07/23/18 03:32 Hgb 10.9 g/dL (12.9-16.9) L 07/23/18 03:32 Hct 33.5 % (37.5-50.1) L 07/23/18 03:32 RDW 16.2 % (11.5-14.5) H 07/23/18 03:32 Neutrophils # 12.4 K/mcL (1.6-8.9) H 07/23/18 03:32 PT 13.3 Seconds (9.4-12.1) H 07/23/18 03:32 Chloride 97 mEq/L (98-107) L 07/23/18 03:32 BUN 27 mg/dL (8-23) H 07/23/18 03:32 Est GFR (Non-Af Amer) 57 (> 60) L 07/23/18 03:32 Glucose 169 mg/dL (70-105) H 07/23/18 03:32 POC Glucose 227 mg/dL (70-99) H 07/23/18 00:24 Magnesium 1.4 mg/dL (1.6-2.6) L 07/23/18 03:32 Urine Protein 100 mg/dL (Neg-Trace) H 07/23/18 07:50 Consult Discharge Plan - Plan Referrals: Varghese Nassar MD [Partnered Physician] - (Needs voiding trial in 5-7 days.) Mukul Ortega MD [Primary Care Provider] - Carmina Enriquez [Partnered Physician] - 08/05/18 9:30 am
[2018-07-23 12:16] LABS: Adenovirus Not Detected (Not Detect); Coronavirus 229E Not Detected (Not Detect); Coronavirus HKU1 Not Detected (Not Detect); Coronavirus NL63 Not Detected (Not Detect); Coronavirus OC43 Not Detected (Not Detect); Human Metapneumovirus Not Detected (Not Detect); Human Rhinovirus/Enterovirus Not Detected (Not Detect)
[2018-07-23 12:17] LABS: Bordetella Pertussis Not Detected (Not Detect); Chlamydophila pneumoniae Not Detected (Not Detect); Influenza A Subtype 2009 H1 Not Detected (Not Detect); Influenza A Untypeable Not Detected (Not Detect); Influenza B Not Detected (Not Detect); Mycoplasma pneumoniae Not Detected (Not Detect); Parainfluenza Virus 1 Not Detected (Not Detect); Parainfluenza Virus 2 Not Detected (Not Detect); Parainfluenza Virus 3 Not Detected (Not Detect); Parainfluenza Virus 4 Not Detected (Not Detect); Respiratory Syncytial Virus Not Detected (Not Detect)
--- NOTE | 2018-07-23 15:17 | Urology - Consult Note ---
<Kayla Roman N - Last Filed: 07/23/18 15:14> Date of Encounter: 07/23/18 Time of Encounter: 14:00 - Assessment and Plan (1) Acute urinary retention Current Visit: Yes Status: Acute Assessment and plan: Patient is a 62-year old male who presents with acute urinary retention. Discussed Flomax use to optimize urine flow. Toscano displaced in prostatic urethra. Toscano replaced with 18Fr coude catheter with mild resistance. Will continue catheter for 5-7 days and complete an outpatient voiding trial with Dr. Nassar. (2) Gross hematuria Current Visit: Yes Status: Acute Assessment and plan: Patient is a 62-year old male who presents with gross hematuria following catheter trauma. Catheter was replaced and irrigated without difficulty. Urine is transparent pink lemonade and much improved. We will plan to proceed with an outpatient voiding trial in 5-7 days. Urology CN:SANDEEP Consult date: 07/23/18 Reason for consult Urology: Difficult Toscano History of present illness: Patient is a 62 year old male who presents with a history of acute urinary retention and gross hematuria. Patient initially presented to the [facility] ED for altered mental status and weakness. Patient has multiple chronic comorbidities but states he has no urologic past medical history. Patient denies any family history of prostate cancer or other malignancy. Patient states he experienced urinary hesitancy shortly after admission, and 900mL was visualized on bladder scan. Toscano was placed without difficulty, and patient was tolerating well until earlier today when the catheter was stepped on while getting out of bed. Patient reports burning, urgency, and gross hematuria in catheter bag. Past Med Surg Social Fam HX - Past Medical History Medical history: asthma, coronary artery disease, diabetes, hyperlipidemia, hypertension, thyroid disease, other Additional medical history: neuropathy Psychiatric history: anxiety - Past Surgical History Surgical History: appendectomy, coronary bypass (CABG), knee replacement, orthopedic, other Additional surgical history: quad bypass. right knee replacement. left rotator cuff surgery - Social History Smoking Status: Former smoker Smokeless Tobacco Status: No Alcohol use: none Drug use: none - Family History Mother Hx Family Cardiac Disorders: No Hx Family Respiratory Disorders: No Hx Family Cancer: No Hx Family GI Disorders: No Hx Family Genitourinary Disorders: No Hx Family Endocrine Disorder: No Hx Family Musculoskeletal Disorders: No Hx Family Neuromuscular Disorders: No Hx Family Neurologic Disorders: No Hx Family HEENT Disorders: No Hx Family Autoimmune Disorders: No Hx Family Reproductive Disorders: No Hx Family Psychosocial Disorders: No Hx Family Medical Disorders: No Medications and Allergies RX: Aspirin Enteric Coated [Aspirin EC] 81 mg PO DAILY 11/18/17 [History] RX: Atorvastatin [Lipitor] 40 mg PO HS 11/18/17 [History] RX: Carvedilol [Coreg] 12.5 mg PO BID 11/18/17 [History] RX: Dexlansoprazole [Dexilant] 60 mg PO DAILY 11/18/17 [History] RX: Insulin Degludec [Tresiba Flextouch U-200] 70 unit SQ QAM 11/18/17 [History] RX: Linagliptin [Tradjenta] 5 mg PO DAILY 11/18/17 [History] RX: Metformin HCl [Glucophage] 1,000 mg PO BID 11/18/17 [History] RX: Oxybutynin [Ditropan] 5 mg PO BID 11/18/17 [History] RX: Pioglitazone [Actos] 45 mg PO DAILY 11/18/17 [History] RX: Pregabalin [Lyrica] 150 mg PO BID 11/18/17 [History] RX: Ropinirole HCl [Requip Xl] 4 mg PO HS 11/18/17 [History] RX: Trazodone HCl 200 mg PO HS 11/18/17 [History] Amlodipine Besylate 1 tab PO DAILY 07/23/18 [History] Losartan-Hctz 50-12.5 mg Tab 1 tab PO BID 07/23/18 [History] Allergy/AdvReac Type Severity Reaction Status Date / Time No Known Allergies Allergy Verified 12/13/17 19:28 Review of Systems - Constitutional no chills, no fatigue, no fever(s) - EENT Nose, mouth and throat: no dizziness, no headache(s) - Cardiovascular no chest pain, no diaphoresis, no dyspnea - Respiratory no cough, no dyspnea - Gastrointestinal no abdominal pain, no nausea, no vomiting - Genitourinary change in urinary stream, difficulty urinating, dysuria, hematuria, urinary hesitancy, urinary urgency, no flank pain, no urinary frequency, no urinary incontinence - Musculoskeletal no back pain, no muscle weakness - Integumentary no erythema, no rash - Neurological confusion, weakness - Psychiatric confusion, no anxiety - Hematologic/Lymphatic no easy bleeding, no easy bruising - Allergic/Immunologic no throat swelling, no wheezing Exam Initial Vital Signs Temp Pulse Resp BP Pulse Ox 100 F H 96 18 129/49 97 07/22/18 20:28 07/22/18 20:28 07/22/18 20:28 07/22/18 20:28 07/22/18 20:28 - General physical appearance Present: no distress, no pain, obese - Eyes Present: PERRL, normal ocular movement - ENT Present: normal nares, no hearing loss, no congestion - Neck Present: no masses, trachea midline - Respiratory Present: normal respiratory effort - Abdomen Abdomen: Present: soft, non tender - Genitourinary normal penis with no external lesions, other (suprapubic fat pad enveloping penis; urine is transparent pink lemonade ) Urethral meatis: Present: patent - Integumentary Present: no rash, no abnormal pigmentation - Neurologic Present: normal coordination Urology Results - Labs 07/23/18 03:32 07/23/18 03:32 Abnormal lab results WBC 16.0 K/mcL (4.3-11.1) H 07/23/18 03:32 RBC 3.87 M/mcL (4.19-5.50) L 07/23/18 03:32 Hgb 10.9 g/dL (12.9-16.9) L 07/23/18 03:32 Hct 33.5 % (37.5-50.1) L 07/23/18 03:32 RDW 16.2 % (11.5-14.5) H 07/23/18 03:32 Neutrophils # 12.4 K/mcL (1.6-8.9) H 07/23/18 03:32 PT 13.3 Seconds (9.4-12.1) H 07/23/18 03:32 Chloride 97 mEq/L (98-107) L 07/23/18 03:32 BUN 27 mg/dL (8-23) H 07/23/18 03:32 Est GFR (Non-Af Amer) 57 (> 60) L 07/23/18 03:32 Glucose 169 mg/dL (70-105) H 07/23/18 03:32 POC Glucose 227 mg/dL (70-99) H 07/23/18 00:24 Magnesium 1.4 mg/dL (1.6-2.6) L 07/23/18 03:32 Urine Protein 100 mg/dL (Neg-Trace) H 07/23/18 07:50 Diabetes panel 07/22/18 07/23/18 Range/Units 20:37 03:32 Sodium 136 136 (136-145) mEq/L Potassium 4.3 3.7 (3.5-5.1) mEq/L Chloride 94 L 97 L (98-107) mEq/L Carbon Dioxide 32 H 27 (23-29) mEq/L BUN 25 H 27 H (8-23) mg/dL Creatinine 1.33 H 1.28 (0.70-1.30) mg/dL Glucose 171 H 169 H (70-105) mg/dL Calcium 10.3 9.6 (8.6-10.3) mg/dL AST 13 (13-39) Units/L ALT 11 (7-52) Units/L Alkaline Phosphatase 68 (34-104) Units/L Albumin 3.7 (3.5-5.7) g/dL Thyroid panel 07/23/18 Range/Units 03:32 TSH 4.357 (0.340-5.600) mcIU/mL Calcium panel 07/22/18 07/23/18 Range/Units 20:37 03:32 Calcium 10.3 9.6 (8.6-10.3) mg/dL Phosphorus 3.7 (2.7-4.5) mg/dL Albumin 3.7 (3.5-5.7) g/dL Pituitary panel 07/22/18 07/23/18 Range/Units 20:37 03:32 Sodium 136 136 (136-145) mEq/L Potassium 4.3 3.7 (3.5-5.1) mEq/L Chloride 94 L 97 L (98-107) mEq/L Carbon Dioxide 32 H 27 (23-29) mEq/L BUN 25 H 27 H (8-23) mg/dL Creatinine 1.33 H 1.28 (0.70-1.30) mg/dL Glucose 171 H 169 H (70-105) mg/dL Calcium 10.3 9.6 (8.6-10.3) mg/dL TSH 4.357 (0.340-5.600) mcIU/mL Adrenal panel 07/22/18 07/23/18 Range/Units 20:37 03:32 Sodium 136 136 (136-145) mEq/L Potassium 4.3 3.7 (3.5-5.1) mEq/L Chloride 94 L 97 L (98-107) mEq/L Carbon Dioxide 32 H 27 (23-29) mEq/L BUN 25 H 27 H (8-23) mg/dL Creatinine 1.33 H 1.28 (0.70-1.30) mg/dL Glucose 171 H 169 H (70-105) mg/dL Calcium 10.3 9.6 (8.6-10.3) mg/dL Total Bilirubin 0.5 (0.3-1.0) mg/dL AST 13 (13-39) Units/L ALT 11 (7-52) Units/L Alkaline Phosphatase 68 (34-104) Units/L Albumin 3.7 (3.5-5.7) g/dL All other labs normal. Procedures:Urology - Bladder Irrigation/Clot Evacuation Consent obtained: verbal consent Irrigation: saline Amount of Clot: small clot and scant sediment Patient tolerated procedure: well, no complications Continuous Bladder Irrigation: No Complications: none - Catheter Insertion (Urinary) Prophylactic antibiotics given: No Bladder Scan/Ultrasound used before catheterization: No (PVR 900cc prior to initial catheter placement ) Estimated amount of urin (mLs): 100 Preparation: Povidone-Iodine, Urojet, Lidocaine Jelly Type of catheter inserted: 2 way, coude tip, silastic Catheter [place] Size: 18 Topical anesthesia used: Yes Results: successfully catheterized-immediate flow Urine Appearance: Hematuria Patient tolerated procedure: well, no complications Complications: bloody urine Consult Discharge Plan - Plan Referrals: Varghese Nassar MD [Partnered Physician] - (Needs voiding trial in 5-7 days.) Mukul Ortega MD [Primary Care Provider] - Carmina Enriquez [Partnered Physician] - 08/05/18 9:30 am <Varghese Nassar - Last Filed: 07/23/18 21:32> Date of Encounter: 07/23/18 Urology CN:HPI History of present illness: Patient was seen and examined independently. Agree with plan as written by Arpita Roman. Patient was prepped and draped in normal sterile fashion. This was done after patient's prior catheter had been removed. I then placed a 18-[place] Coude catheter with some moderate resistance from the patient's prostate. Immediate return of clear urine was obtained. Patient stated this catheter was much more comfortable than the prior catheter. Exam Initial Vital Signs Temp Pulse Resp BP Pulse Ox 100 F H 96 18 129/49 97 07/22/18 20:28 07/22/18 20:28 07/22/18 20:28 07/22/18 20:28 07/22/18 20:28 Urology Results - Labs 07/23/18 03:32 07/23/18 03:32 Abnormal lab results WBC 16.0 K/mcL (4.3-11.1) H 07/23/18 03:32 RBC 3.87 M/mcL (4.19-5.50) L 07/23/18 03:32 Hgb 10.9 g/dL (12.9-16.9) L 07/23/18 03:32 Hct 33.5 % (37.5-50.1) L 07/23/18 03:32 RDW 16.2 % (11.5-14.5) H 07/23/18 03:32 Neutrophils # 12.4 K/mcL (1.6-8.9) H 07/23/18 03:32 PT 13.3 Seconds (9.4-12.1) H 07/23/18 03:32 Chloride 97 mEq/L (98-107) L 07/23/18 03:32 BUN 27 mg/dL (8-23) H 07/23/18 03:32 Est GFR (Non-Af Amer) 57 (> 60) L 07/23/18 03:32 Glucose 169 mg/dL (70-105) H 07/23/18 03:32 POC Glucose 227 mg/dL (70-99) H 07/23/18 00:24 Magnesium 1.4 mg/dL (1.6-2.6) L 07/23/18 03:32 Urine Protein 100 mg/dL (Neg-Trace) H 07/23/18 07:50 Diabetes panel 07/23/18 Range/Units 03:32 Sodium 136 (136-145) mEq/L Potassium 3.7 (3.5-5.1) mEq/L Chloride 97 L (98-107) mEq/L Carbon Dioxide 27 (23-29) mEq/L BUN 27 H (8-23) mg/dL Creatinine 1.28 (0.70-1.30) mg/dL Glucose 169 H (70-105) mg/dL Calcium 9.6 (8.6-10.3) mg/dL AST 13 (13-39) Units/L ALT 11 (7-52) Units/L Alkaline Phosphatase 68 (34-104) Units/L Albumin 3.7 (3.5-5.7) g/dL Thyroid panel 07/23/18 Range/Units 03:32 TSH 4.357 (0.340-5.600) mcIU/mL Calcium panel 07/23/18 Range/Units 03:32 Calcium 9.6 (8.6-10.3) mg/dL Phosphorus 3.7 (2.7-4.5) mg/dL Albumin 3.7 (3.5-5.7) g/dL Pituitary panel 07/23/18 Range/Units 03:32 Sodium 136 (136-145) mEq/L Potassium 3.7 (3.5-5.1) mEq/L Chloride 97 L (98-107) mEq/L Carbon Dioxide 27 (23-29) mEq/L BUN 27 H (8-23) mg/dL Creatinine 1.28 (0.70-1.30) mg/dL Glucose 169 H (70-105) mg/dL Calcium 9.6 (8.6-10.3) mg/dL TSH 4.357 (0.340-5.600) mcIU/mL Adrenal panel 07/23/18 Range/Units 03:32 Sodium 136 (136-145) mEq/L Potassium 3.7 (3.5-5.1) mEq/L Chloride 97 L (98-107) mEq/L Carbon Dioxide 27 (23-29) mEq/L BUN 27 H (8-23) mg/dL Creatinine 1.28 (0.70-1.30) mg/dL Glucose 169 H (70-105) mg/dL Calcium 9.6 (8.6-10.3) mg/dL Total Bilirubin 0.5 (0.3-1.0) mg/dL AST 13 (13-39) Units/L ALT 11 (7-52) Units/L Alkaline Phosphatase 68 (34-104) Units/L Albumin 3.7 (3.5-5.7) g/dL All other labs normal.
--- NOTE | 2018-07-23 15:24 | Electrocardiograph Report ---
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
[2018-07-23] MEDS ORDERED: 0.9 % Sodium Chloride 1,000 ML IVC SCH (22:15)
[2018-07-23] MEDS: Magnesium Oxide 400 MG TABLET PO SCH (23:38)
--- NOTE | 2018-07-24 03:54 | Event Note ---
Date of Encounter: 07/23/18 Time of Encounter: 20:13 Alerted by pts. nurse that the pt. was wanting to know his test results so he could leave. Pt. was originally admitted for weakness and lightheadedness w/concern for possible TIA. Went to see the pt. who was sitting in the chair beside the bed. was present. I first asked the pt. why he was wanting to leave. He stated that he was feeling better and thought he was supposed to be discharged. I informed the pt. that we do not initiate discharges at night. I explained that I did not wish for him to leave AMA d/t several issues that he was experiencing, namely his urinary retention that required a Coude catheter and now hematuria as well as electrolyte imbalances. He said that he could not leave AMA because his insurance would not pay for his stay if he left. I then proceeded to go over the patient's test results. First was the pts. Carotid Dopplers which showed non-stenotic plaque in the right mid to distal CCA and left proximal to mid CCA as well as 40-59% stenosis of the right proximal ICA. Informed patient that MRI results showed no infarct, no hemorrhage, no mass effect, and chronic small vessel ischemic white matter disease and diffuse cerebral volume loss. Initial CT showed ventriculomegaly which has increased since 2010 but no hydrocephalus with recommendation to follow-up yearly with repeat head CTs. Reviewed neurology's notes which stated they were signing off if MRI results were unremarkable. Unsure if urology is signing off at this time due to patient's current hematuria and acute urinary retention. Patient and expressed understanding and agreement with plan of care as well as understanding to test results which were reviewed with him. Nurse instructed to continue monitoring patient closely and alert me immediately of any adverse changes, especially regarding worsening hematuria. 0.9 NS IV fluids @ 60 mls/hr ordered to help correct current hypochloremia. By mouth magnesium ordered to correct current hypomagnesemia. Will review 04:00 labs for improvement.
[2018-07-24 04:36] LABS: Hematocrit 34.5 % (37.5-50.1); Hemoglobin 11.2 g/dL (12.9-16.9); Mean Corpuscular HGB Conc 32.5 g/dL (31.6-35.5); Mean Corpuscular Hemoglobin 28.1 pg (28.0-33.3); Mean Corpuscular Volume 86.7 fL (83.0-100.0); Mean Platelet Volume 11.1 fL (9.4-12.4); Platelet Count 228 K/mcL (140-400); Red Blood Count 3.98 M/mcL (4.19-5.50); Red Cell Distribution Width 15.8 % (11.5-14.5)
[2018-07-24 05:04] LABS: BUN/Creatinine Ratio 21 (6-26); Blood Urea Nitrogen 20 mg/dL (8-23); Calcium 9.9 mg/dL (8.6-10.3); Carbon Dioxide 28 mEq/L (23-29); Chloride 97 mEq/L (98-107); Glucose 171 mg/dL (70-105); Osmolality,Calculated 287 (280-300); Potassium 3.7 mEq/L (3.5-5.1); Sodium 135 mEq/L (136-145); eGFR For Non-African Americans > 60 (> 60)
[2018-07-24] MEDS: *HR* Heparin 5,000 UNIT/ML VIAL SQ SCH ×2 (06:01→14:33)
--- NOTE | 2018-07-24 07:13 | Urology Progress Note ---
Date of Encounter: 07/24/18 Time of Encounter: 07:12 - Assessment and Plan (1) Urinary retention Current Visit: Yes Status: Acute Assessment and plan: keep cath in place. f/u made for next week for voiding trial (2) Gross hematuria Current Visit: Yes Status: Acute Assessment and plan: improving. continue with increasing po intake. Progress Note Narrative: patient seen this am. cath draining slighlty pink urine. no problems with catheter. Objective Initial Vital Signs Temp Pulse Resp BP Pulse Ox 100 F H 96 18 129/49 97 07/22/18 20:28 07/22/18 20:28 07/22/18 20:28 07/22/18 20:28 07/22/18 20:28 - General physical appearance Present: well developed, well nourished - Abdomen Present: soft. Absent: tender - Genitourinary Urine Appearance: Present: Hematuria (very slight pink urine) - Labs 07/24/18 03:47 07/24/18 03:47 Diabetes panel 07/24/18 Range/Units 03:47 Sodium 135 L (136-145) mEq/L Potassium 3.7 (3.5-5.1) mEq/L Chloride 97 L (98-107) mEq/L Carbon Dioxide 28 (23-29) mEq/L BUN 20 (8-23) mg/dL Creatinine 0.95 (0.70-1.30) mg/dL Glucose 171 H (70-105) mg/dL Calcium 9.9 (8.6-10.3) mg/dL Calcium panel 07/24/18 Range/Units 03:47 Calcium 9.9 (8.6-10.3) mg/dL Pituitary panel 07/24/18 Range/Units 03:47 Sodium 135 L (136-145) mEq/L Potassium 3.7 (3.5-5.1) mEq/L Chloride 97 L (98-107) mEq/L Carbon Dioxide 28 (23-29) mEq/L BUN 20 (8-23) mg/dL Creatinine 0.95 (0.70-1.30) mg/dL Glucose 171 H (70-105) mg/dL Calcium 9.9 (8.6-10.3) mg/dL Adrenal panel 07/24/18 Range/Units 03:47 Sodium 135 L (136-145) mEq/L Potassium 3.7 (3.5-5.1) mEq/L Chloride 97 L (98-107) mEq/L Carbon Dioxide 28 (23-29) mEq/L BUN 20 (8-23) mg/dL Creatinine 0.95 (0.70-1.30) mg/dL Glucose 171 H (70-105) mg/dL Calcium 9.9 (8.6-10.3) mg/dL Consult Discharge Plan - Plan Referrals: Varghese Nassar MD [Partnered Physician] - (Needs voiding trial in 5-7 days.) Mukul Ortega MD [Primary Care Provider] - Carmina Enriquez [Partnered Physician] - 08/05/18 9:30 am
[2018-07-24] MEDS: Insulin LISPRO 300 UNITS/3 ML VIAL SQ SCH ×2 (07:50→11:28)
[2018-07-24 08:22] LABS: Magnesium 1.7 mg/dL (1.6-2.6)
--- NOTE | 2018-07-24 09:33 | Neurology Progress Note ---
<Jorje Pena - Last Filed: 07/24/18 17:12> Date of Encounter: 07/24/18 Time of Encounter: 09:29 Assessment and Plan (1) Confusion Status: Resolved (2) Lower extremity weakness Status: Resolved Patient presented with bilateral lower extremity weakness and near syncope He has not had any prior episodes of this in the past. CT of head in the ED revealed an increased ventriculomegaly compared to prior studies. There was concern for NPH however, clinically the patient does not have any typical symptoms of NPH. MRI of brain completed finding no acute pathology to explain his symptoms. Bilateral carotid Doppler with right mid to distal CCA nonstenotic plaque and right proximal ICA 40-59% stenosis, left proximal to mid CCA with nonstenotic plaque. He has had fluctuating blood pressures throughout this study therefore recommend obtaining orthostatic vital signs to evaluate for orthostasis There was concern for possible orthostasis with fluctuating blood pressures, Orthostatic vitals obtained and found to be negative for orthostasis. At this time because of near syncope and leg weakness remains unclear with no obvious central cause. In regards to his increasing ventriculomegaly, in the absence of neurological deficits and a nonfocal and non-lateralizing exam as well as lack of typical symptoms associated with NPH a do not believe this is contributing. I have recommended that he follow up for repeat imaging study within the next year to continue to further monitor her ventriculomegaly. I have explained to him that his poor body habitus is contributing to his decreased activity tolerance. I have recommended weight loss. At this time I anticipate neurology signed off discussed this further with my attending. Qualifiers: Laterality: bilateral Qualified Code(s): R29.898 - Other symptoms and signs involving the musculoskeletal system Subjective Principal diagnosis: weakness Interval history: Patient examined at bedside today. No acute change in condition overnight. The patient continues to be clinically stable without additional complications. He is resting comfortably in bed without any acute distress. He denies any new complaints of weakness and states that he is now back to baseline. I did discuss MRI findings and further plan of care. The patient denies any further questions at this time. He is adamant about discharging today. I did discuss with him that from a neurological standpoint to do not feel there is any additional workup to be completed at this time and that I will inform the hospitalist as well. Objective - Constitutional Vitals: Temp Pulse Resp BP Pulse Ox 98.0 F 78 16 128/57 100 07/24/18 02:36 07/24/18 02:36 07/24/18 02:36 07/24/18 02:36 07/24/18 02:36 Exam: Examination: General Examination: Resting comfortably at side in bed in no acute distress. *CONSTITUTIONAL: Obese male *GENERAL APPEARANCE OF PATIENT given morbid obesity patient does not appear healthy although his hygiene is adequate and he does appear to partake in self-care. *EYES: pupils equal, round, reactive to light and accommodation, conjunctiva clear without masses or ulcerations, fundi normal. *CARDIOVASCULAR RRR, S1, S2, no mumurs, rubs, or gallops, no peripheral edema, distal temperature normal, dorsalis pedis pulses normal. 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 No abnormal movements, fasciculations or atrophy identified. Neurological: *ORIENTATION to time and place *RECURRENT AND REMOTE MEMORY intact *ATTENTION AND CONCENTRATION are normal *LANGUAGE FUNCTION no significant aphasia or dysarthia was noted. *FUND OF KNOWLEDGE aware of current events, past history, vocabulary *MENTAL attention span and concentration normal. *CN II optic fundi were normal, no papilledema noted. *CN III,IV, PERRLA extraocular eye movements were full, no nystagmus and no ptosis noted. *CN V shows normal sensation and jaw opens symmetrically. *CN VII shows normal facial movement symmetrically, upper and lower bilaterally. *CN VIII shows no significant hearing loss on examination in the office. *CN IX,,X palate elevated symmetrically and normal gag reflex was noted. *CN XI normal strength in the sternocleidomastoid muscles, symmetrical shoulder shrugging. *CN XII tongue protruded in the midline, with normal strength and movement. *SENSORY EXAMINATION pinprick sensation intact, and light touch(vibration sense). *REFLEXES: deep tendon reflexes were diminished symmetrically throughout all 4 extremities, no pathological reflexes were noted. *CEREBELLAR TESTING normal finger to nose, no gait abnormalities noted *PAIN LEVEL 0/10 Results - Laboratory Findings CBC and BMP: 07/24/18 03:47 07/24/18 03:47 Abnormal lab findings: Abnormal lab results RBC 3.98 M/mcL (4.19-5.50) L 07/24/18 03:47 Hgb 11.2 g/dL (12.9-16.9) L 07/24/18 03:47 Hct 34.5 % (37.5-50.1) L 07/24/18 03:47 RDW 15.8 % (11.5-14.5) H 07/24/18 03:47 Neutrophils # 12.4 K/mcL (1.6-8.9) H 07/23/18 03:32 PT 13.3 Seconds (9.4-12.1) H 07/23/18 03:32 Sodium 135 mEq/L (136-145) L 07/24/18 03:47 Chloride 97 mEq/L (98-107) L 07/24/18 03:47 Glucose 171 mg/dL (70-105) H 07/24/18 03:47 POC Glucose 289 mg/dL (70-99) H 07/23/18 20:02 Urine Protein 100 mg/dL (Neg-Trace) H 07/23/18 07:50 Consult Discharge Plan - Plan Instructions: Urinary Leg Bag (GEN) Referrals: Varghese Nassar MD [Partnered Physician] - 07/29/18 8:15 am () Mukul Ortega MD [Primary Care Provider] - 08/01/18 10:30 am Carmina Enriquez [Partnered Physician] - 08/05/18 9:30 am <Lawrence Pang - Last Filed: 07/24/18 17:37> Date of Encounter: 07/24/18 Assessment and Plan (1) Confusion Status: Resolved (2) Lower extremity weakness Status: Resolved I agree with the assessment of the DIRECTOR HEALTH as stated above. In addition I would like to add that there is no evidence of transverse myelitis or any other type of myelopathy at this time. Qualifiers: Laterality: bilateral Qualified Code(s): R29.898 - Other symptoms and signs involving the musculoskeletal system Subjective Interval history: The chart was reviewed, the patient was seen and examined along with the DIRECTOR HEALTH. I agree with his assessment as stated above. I reviewed Dr. Llanos's assessment. At this point in time I am unable to identify a specific neurologic cause to explain the transient lower extremity weakness. However he is now back to his normal baseline neurologic status. Objective - Constitutional Vitals: Temp Pulse Resp BP Pulse Ox 97.9 F 74 18 151/68 99 07/24/18 11:00 07/24/18 11:00 07/24/18 11:00 07/24/18 11:00 07/24/18 11:00 Exam: I agree with the neurologic examination as stated above. Results - Laboratory Findings CBC and BMP: 07/24/18 03:47 07/24/18 03:47 Abnormal lab findings: Abnormal lab results RBC 3.98 M/mcL (4.19-5.50) L 07/24/18 03:47 Hgb 11.2 g/dL (12.9-16.9) L 07/24/18 03:47 Hct 34.5 % (37.5-50.1) L 07/24/18 03:47 RDW 15.8 % (11.5-14.5) H 07/24/18 03:47 Neutrophils # 12.4 K/mcL (1.6-8.9) H 07/23/18 03:32 PT 13.3 Seconds (9.4-12.1) H 07/23/18 03:32 Sodium 135 mEq/L (136-145) L 07/24/18 03:47 Chloride 97 mEq/L (98-107) L 07/24/18 03:47 Glucose 171 mg/dL (70-105) H 07/24/18 03:47 POC Glucose 289 mg/dL (70-99) H 07/23/18 20:02 Urine Protein 100 mg/dL (Neg-Trace) H 07/23/18 07:50
[2018-07-24] MEDS: Magnesium Oxide 400 MG TABLET PO SCH (09:47)
--- NOTE | 2018-07-24 10:00 | Discharge Summary ---
- NOTES TO OUTPATIENT PROVIDER Notes to Outpatient Provider: Extremity weakness-evaluated by PT and OT needs at this time patient encouraged to lose weight. Also experienced urinary retention/hematuria with Toscano placement need follow-up with urology Date of Encounter: 07/24/18 Time of Encounter: 09:58 - Discharge Diagnosis (1) Type 2 diabetes mellitus Priority: Secondary Status: Chronic Qualifiers: Diabetes mellitus terminal carman insulin use: with terminal carman use Diabetes mellitus complication status: with hyperglycemia Qualified Code(s): E11.65 - Type 2 diabetes mellitus with hyperglycemia; Z79.4 - [facility] (current) use of insulin (2) CARRIE (obstructive sleep apnea) Priority: Secondary Status: Chronic (3) Hypertension Priority: Secondary Status: Chronic Qualifiers: Hypertension type: essential hypertension Qualified Code(s): I10 - Essential (primary) hypertension (4) HERNANDEZ (acute kidney injury) Priority: Secondary Status: Acute (5) Confusion Priority: Primary Status: Resolved (6) Lower extremity weakness Priority: Primary Status: Resolved Qualifiers: Laterality: bilateral Qualified Code(s): R29.898 - Other symptoms and signs involving the musculoskeletal system Hospital course: Mr. Connor is a 62 year old male past medical history of hypertension CAD hyperlipidemia CARRIE diabetes type 2 and morbid obesity. He presented to [facility] ED with complaints of bilateral lower extremity weakness and confusion. Patient states that he had a busy day and the evening he was very exhausted his thought he was acting strange. He related to the bathroom to urinate and then he became very weak and he slowly lowered himself to the floor and then he was not able to get up. Upon arrival to the mother's department he was noted to have an AK I he was given IV fluids patient was unable to void and a postvoid residual did reveal 900 mL's. Toscano catheter was placed, patient then attempted to ambulate and pulled catheter causing trauma and hematuria. Urology was consulted recommending follow-up voiding trial next week as outpatient. Urinalysis was obtained and was negative for UTI chest x-ray was unremarkable CT of head showed no acute intracranial process. After receiving IV fluids patient is a candidate did improve and returned back to baseline. Neurology was consulted patient had MRI which was negative for any intracranial osmolality. Carotid duplex with right mid to distal CCA no stenotic plaque and right proximal ICA 40% stenosis. Orthostatic vital signs within normal limits. Patient was evaluated by PT OT with no needs identified. Suspect Patient was counseled on the importance of weight loss. He was advised to follow-up with his primary care provider and urology as an outpatient. Currently patient is back to his baseline and is hemodynamically stable at this time and ready for discharge. Discharge discussed with: patient - Time Spent with Patient Total time spent providing and/or coordinating discharge services: - Discharge Medications Home Medications: Aspirin Enteric Coated [Aspirin EC] 81 mg PO DAILY 11/18/17 [History] Atorvastatin [Lipitor] 40 mg PO HS 11/18/17 [History] Carvedilol [Coreg] 12.5 mg PO BID 11/18/17 [History] Dexlansoprazole [Dexilant] 60 mg PO DAILY 11/18/17 [History] Insulin Degludec [Tresiba Flextouch U-200] 70 unit SQ QAM 11/18/17 [History] Linagliptin [Tradjenta] 5 mg PO DAILY 11/18/17 [History] Metformin HCl [Glucophage] 1,000 mg PO BID 11/18/17 [History] Oxybutynin [Ditropan] 5 mg PO BID 11/18/17 [History] Pioglitazone [Actos] 45 mg PO DAILY 11/18/17 [History] Pregabalin [Lyrica] 150 mg PO BID 11/18/17 [History] Ropinirole HCl [Requip Xl] 4 mg PO HS 11/18/17 [History] Amlodipine Besylate 10 mg PO DAILY 07/23/18 [History] Budesonide/Formoterol 160/4.5 [Symbicort 160/4.5] 2 puff PO BID 07/23/18 [History] Fluticasone Propionate Nasal [Flonase] 1 spray NS DAILY PRN 07/23/18 [History] Furosemide [Lasix] 40 mg PO DAILY 07/23/18 [History] Insulin ASPART [Novolog Flexpen] 0 - 40 unit SQ TID 07/23/18 [History] Losartan/Hydrochlorothiazide [Losartan-Hctz 50-12.5 mg Tab] 1 tab PO BID 07/23/18 [History] Trazodone HCl 100 - 200 mg PO HS PRN 07/23/18 [History] Allergies/Adverse Reactions: Allergy/AdvReac Type Severity Reaction Status Date / Time No Known Allergies Allergy Verified 12/13/17 19:28 Date of admission: 07/22/18 23:35 Primary care physician: Mukul Ortega MD Consults: 07/23/18 03:53 Consult to Physical Therapy [CONS] Routine Comment: Evaluate, develop and implement POC Reason for Consult: Bilateral lower extremity weakness. Patient mildly obese. May benefit from further assessment and further physical therapy Does patient have active BEDREST order?: No Is patient medically & hemodynamically stable?: Yes 07/23/18 04:03 Consult to Neurology [CONS] Routine Consulting Provider: Neurology [facility] Reason for Consult: Confusion in the setting of Persistent but worsening pancho triculomegaly on CT scan in the setting of bilateral lower extremity weakness Call Completed: No 07/23/18 09:02 Consult to Occupational Therapy [CONS] Routine Comment: Evaluate, develop and implement POC Reason for Consult: lower extremity weakness Does patient have active BEDREST order?: No Is patient medically & hemodynamically stable?: Yes 07/23/18 13:56 Consult to Urology [CONS] Routine Consulting Provider: [facility] Reason for Consult: urinary retention, hematuria Time Notified: 13:59 Call Completed: Yes Discharging clinician: Serena Watkins Anticipated date of discharge: 07/24/18 - Constitutional Vitals: Temp Pulse Resp BP Pulse Ox 98.0 F 78 16 128/57 100 07/24/18 02:36 07/24/18 02:36 07/24/18 02:36 07/24/18 02:36 07/24/18 02:36 General appearance: Present: A&O X 3, obese Exam: General: Alert and oriented 3 sitting and chair not in acute distress Skin:Normal color, no rash, no lesions. HEENT:EOM, pupils equal, round and reactive. Cardiovascular:Normal S1 & S2, no rubs, murmurs or gallops. No JVD. Pulse regular. Lungs:Normal breath sounds, no wheezes or crackles. Abdomen:Soft, non-tender, no rigidity. Extremities:No deformity, no edema or tenderness, no joint swelling or clubbing. Neurological:Normal cognition and motor skills. Lower extremity muscle strength 5 out of 5 bilaterally Pulses:Carotid and radial pulses normal +2. Rest of the physical exam is non contributory - Head Head exam: Present: atraumatic, normocephalic - Eye Eye exam: Present: PERRL, conjuntiva pink, sclera anicteric Pupils: Present: PERRL - Neck Neck exam general surgery: Present: supple, trachea midline. Absent: lymphadenopathy - Respiratory Respiratory exam: Present: CTAB. Absent: accessory muscle use, rales, rhonchi, wheezes - Cardiovascular Cardiovascular exam: Present: RRR, +S1, +S2. Absent: diastolic murmur, gallop, rubs, systolic murmur - GI/Abdominal GI/Abdominal exam: Present: normal bowel sounds, soft, no peritoneal signs. Absent: distended, tenderness - Extremities Exam Extremities exam: Present: warm, radial pulses palpable and symmetrical. Absent: calf tenderness, cyanotic, pedal edema - Neurological Exam Neurological exam: Present: CN II-XII intact, oriented X3, no focal deficits. Absent: pronater drift, facial droop, speech deficit - Skin Skin exam: Present: dry, intact - Patient Status Disposition: Home, Self-Care Condition: Good Functional capacity at discharge: independent ambulation Overall status at discharge: patient is back to baseline - Discharge Instructions Instructions: Urinary Leg Bag (GEN) Follow Up With: Varghese Nassar MD [Partnered Physician] - 07/29/18 8:15 am () Mukul Ortega MD [Primary Care Provider] - 08/01/18 10:30 am Rios Llanos MD [Partnered Physician] - Carmina Enriquez [Partnered Physician] - 08/05/18 9:30 am - Diet and Activity Activity: increase activity as tolerated Diet: advance to your usual diet
[2018-07-24 11:42] VITALS: BP 151/68
== END 2018-07-24 16:59 | disposition home or self-care (01) ==
LOC: EMEROOARM 20:26 → 3BNU 20:26
PROVIDERS: ADMIT Internal Medicine; ATTEND Internal Medicine

== ENCOUNTER 2020-02-24 20:27 | Inpatient (IN) ==
[2020-02-24] MEDS ORDERED: *HR* Atropine Sulfate 1 MG/10 ML SYRINGE ONE (20:32)
[2020-02-24] MEDS ORDERED: Calcium Gluconate 1gm/50mL 1 GM/50 ML BAG IVPB ONE (20:33)
[2020-02-24] MEDS ORDERED: *HR* Atropine Sulfate 1 MG/10 ML SYRINGE IV ONE ×2 (20:38→20:52)
[2020-02-24] MEDS ORDERED: Calcium Gluconate 1gm/50mL BAG IVPB ONE (20:40)
[2020-02-24] MEDS ORDERED: *HR* Atropine Sulfate 1 MG/10 ML SYRINGE IVP STA (20:50)
[2020-02-24 20:52] LABS: Basophils # 0.1 K/mcL (0.0-0.2); Basophils % 0.8 %; Eosinophils # 0.2 K/mcL (0.0-0.6); Eosinophils % 1.8 %; Hematocrit 39.1 % (37.5-50.1); Hemoglobin 12.3 g/dL (12.9-16.9); Immature Granulocytes % 0.4 % (0-4); Lymphocytes # 3.5 K/mcL (0.6-4.6); Lymphocytes % 29.1 %; Mean Corpuscular HGB Conc 31.5 g/dL (31.6-35.5); Mean Corpuscular Volume 89.1 fL (83.0-100.0); Mean Platelet Volume 11.8 fL (9.4-12.4); Monocytes % 8.4 %; Neutrophils # 7.1 K/mcL (1.6-8.9); Platelet Count 247 K/mcL (140-400); Red Blood Count 4.39 M/mcL (4.19-5.50); Red Cell Distribution Width 16.6 % (11.5-14.5); Segmented Neutrophils % 59.5 %; White Blood Count 11.9 K/mcL (4.3-11.1)
[2020-02-24 20:59] LABS: INR 1.1; Prothrombin Time 12.9 Seconds (9.4-12.1)
[2020-02-24 21:02] LABS: Activated Partial Thrombo Time 35.5 Seconds (26.0-36.0)
[2020-02-24 21:17] LABS: Calcium 9.3 mg/dL (8.6-10.3); Magnesium 1.8 mg/dL (1.6-2.6); Potassium 4.8 mEq/L (3.5-5.1)
[2020-02-24 21:21] LABS: Troponin I 0.04 ng/mL (< 0.04)
[2020-02-24 21:39] LABS: ABG Base Excess -1 mEq/L (-2 to 3); ABG HCO3 25 mEq/L (21-27); ABG Oxygen Saturation 89 % (95-98); ABG PCO2 46 mmHg (35-45); ABG PH 7.34 pH Units (7.32-7.45); ABG PO2 59 mmHg (85-104); ABG TCO2 27 mEq/L (20-26)
[2020-02-24] MEDS ORDERED: Aspirin 81 MG TAB.CHEW PO STA (21:40)
[2020-02-24] MEDS ORDERED: *HR* FentaNYL (PF) 100 MCG/2 ML VIAL ONE (22:05)
[2020-02-24] MEDS ORDERED: 0.9 % Sodium Chloride 1,000 ML ONE (22:05)
[2020-02-24] MEDS ORDERED: *HR* Midazolam HCl 2 MG/2 ML VIAL ONE (22:05)
[2020-02-24] MEDS ORDERED: Heparin 1,000 UNITS/500 mL 500 ML ONE (22:06)
[2020-02-24] MEDS ORDERED: Furosemide 40 MG/4 ML VIAL ONE (22:49)
[2020-02-24] MEDS ORDERED: Naloxone 0.4 MG/ML INJ IVP PRN ×2 (22:54→23:19)
[2020-02-24] MEDS ORDERED: Perflutren Lipid Microsphere 1.3 ML in 0.9 % Sodium Chloride 8.7 ML IVP PRN (22:55)
[2020-02-25] MEDS ORDERED: Perflutren Lipid Microsphere 1.3 ML in 0.9 % Sodium Chloride 8.7 ML IVP PRN (00:06)
[2020-02-25] MEDS ORDERED: Dextrose Gel 15 GM/37.5 ML TUBE PO PRN ×2 (00:19)
[2020-02-25] MEDS ORDERED: *HR* Dextrose 50 % in Water (Vial) 50 ML VIAL IVP PRN (00:19)
[2020-02-25] MEDS ORDERED: D5% in Water 1,000 ML IVC PRN (00:19)
[2020-02-25 00:45] LABS: Bacteria,Urine Few per hpf (None-Few); Bilirubin,Urine Negative (Negative); Blood,Urine Negative (Negative); Clarity,Urine Clear (Clear); Color,Urine Light-Yellow (Yellow); Glucose,Urine (UA) >=1000 mg/dL (Normal); Hyaline Casts,Urine Few per lpf (None Seen); Ketones,Urine Negative (Negative); Leukocyte Esterase,Urine Negative (Negative); Mucus,Urine Few per lpf (None-Few); Nitrite,Urine Negative (Negative); Protein,Urine 100 mg/dL (Neg-Trace); RBC,Urine 0-3 per hpf (0-3); Specific Gravity,Urine 1.018 (1.010-1.025); Squamous Epithelial Cell,Urine Few per hpf (None-Few); Urobilinogen,Urine Normal (Normal); WBC,Urine 0-3 per hpf (0-3)
[2020-02-25 01:02] LABS: Adenovirus Not Detected (Not Detect); Coronavirus 229E Not Detected (Not Detect); Coronavirus HKU1 Not Detected (Not Detect); Coronavirus NL63 Not Detected (Not Detect); Coronavirus OC43 Not Detected (Not Detect)
[2020-02-25 01:03] LABS: Bordetella Pertussis Not Detected (Not Detect); Chlamydophila pneumoniae Not Detected (Not Detect); Human Metapneumovirus Not Detected (Not Detect); Human Rhinovirus/Enterovirus Not Detected (Not Detect); Influenza A Subtype 2009 H1 Not Detected (Not Detect); Influenza B Not Detected (Not Detect); Mycoplasma pneumoniae Not Detected (Not Detect); Parainfluenza Virus 1 Not Detected (Not Detect); Parainfluenza Virus 2 Not Detected (Not Detect); Parainfluenza Virus 3 Not Detected (Not Detect); Parainfluenza Virus 4 Not Detected (Not Detect); Respiratory Syncytial Virus Not Detected (Not Detect); SARS-CoV-2 Not Detected (Not Detect)
[2020-02-25] MEDS: Budesonide/Formoterol 160/4.5 1 PUFF INH IH SCH ×3 (01:26→19:56)
[2020-02-25 05:56] LABS: Basophils # 0.1 K/mcL (0.0-0.2); Basophils % 0.5 %; Eosinophils # 0.2 K/mcL (0.0-0.6); Eosinophils % 1.3 %; Hematocrit 41.2 % (37.5-50.1); Hemoglobin 13.1 g/dL (12.9-16.9); Immature Granulocytes % 0.3 % (0-4); Lymphocytes # 2.6 K/mcL (0.6-4.6); Lymphocytes % 21.7 %; Mean Corpuscular HGB Conc 31.8 g/dL (31.6-35.5); Mean Corpuscular Hemoglobin 28.9 pg (28.0-33.3); Mean Corpuscular Volume 90.7 fL (83.0-100.0); Mean Platelet Volume 11.7 fL (9.4-12.4); Monocytes # 0.8 K/mcL (0.0-1.3); Monocytes % 6.9 %; Neutrophils # 8.3 K/mcL (1.6-8.9); Platelet Count 229 K/mcL (140-400); Red Blood Count 4.54 M/mcL (4.19-5.50); Red Cell Distribution Width 16.6 % (11.5-14.5); Segmented Neutrophils % 69.3 %
[2020-02-25 05:58] LABS: INR 1.1; Prothrombin Time 12.5 Seconds (9.4-12.1)
[2020-02-25 06:00] LABS: Activated Partial Thrombo Time 35.3 Seconds (26.0-36.0)
[2020-02-25 06:31] LABS: Albumin 3.8 g/dL (3.5-5.7); Albumin/Globulin Ratio 1.2 (1.1-2.2); Bilirubin,Direct 0.1 mg/dL (0.0-0.2); Bilirubin,Indirect 0.4 mg/dL (0.0-1.0); Bilirubin,Total 0.5 mg/dL (0.3-1.0); Calcium 9.5 mg/dL (8.6-10.3); Globulin 3.1 g/dL (2.4-3.5); Magnesium 1.9 mg/dL (1.6-2.6); Phosphorous 5.2 mg/dL (2.7-4.5); Potassium 4.9 mEq/L (3.5-5.1); Thyroid Stimulating Hormone 4.581 mcIU/mL (0.340-5.600); Total Protein 6.9 g/dL (6.4-8.9); Troponin I 0.05 ng/mL (< 0.04)
[2020-02-25] MEDS ORDERED: Furosemide 40 MG/4 ML VIAL IVP STA (06:45)
[2020-02-25] MEDS: Insulin LISPRO 300 UNITS/3 ML VIAL SQ SCH ×3 (07:01→18:12)
[2020-02-25] MEDS: *HR* Heparin 5,000 UNIT/ML VIAL SQ SCH ×3 (07:08→20:07)
[2020-02-25 11:27] LABS: Estimated Average Glucose 214 mg/dl
[2020-02-25] MEDS ORDERED: Furosemide 240 MG in 0.9 % Sodium Chloride 96 ML IVC SCH (11:45)
[2020-02-25] MEDS ORDERED: Furosemide 40 MG/4 ML VIAL IVP SCH (14:00)
[2020-02-25 15:16] LABS: VBG Ionized Calcium 1.14 mmol/L (1.15-1.35)
[2020-02-25 15:48] LABS: Albumin 3.9 g/dL (3.5-5.7); Albumin/Globulin Ratio 1.1 (1.1-2.2); Bilirubin,Total 0.6 mg/dL (0.3-1.0); Calcium 10.1 mg/dL (8.6-10.3); Globulin 3.4 g/dL (2.4-3.5); Magnesium 1.8 mg/dL (1.6-2.6); Phosphorous 3.6 mg/dL (2.7-4.5); Total Protein 7.3 g/dL (6.4-8.9)
[2020-02-25] MEDS ORDERED: Acetaminophen 325 MG TABLET PO ONE (19:36)
[2020-02-25] MEDS ORDERED: traZODone 50 MG TABLET PO ONE (20:45)
[2020-02-26] MEDS: Insulin LISPRO 300 UNITS/3 ML VIAL SQ SCH ×4 (00:07→17:23)
[2020-02-26 05:18] LABS: Basophils # 0.1 K/mcL (0.0-0.2); Basophils % 0.6 %; Eosinophils # 0.1 K/mcL (0.0-0.6); Eosinophils % 0.7 %; Immature Granulocytes % 0.3 % (0-4); Lymphocytes # 1.7 K/mcL (0.6-4.6); Lymphocytes % 13.1 %; Mean Corpuscular HGB Conc 32.6 g/dL (31.6-35.5); Mean Corpuscular Hemoglobin 28.7 pg (28.0-33.3); Mean Corpuscular Volume 88.3 fL (83.0-100.0); Monocytes % 8.1 %; Neutrophils # 9.8 K/mcL (1.6-8.9); Platelet Count 211 K/mcL (140-400); Red Blood Count 4.87 M/mcL (4.19-5.50); Red Cell Distribution Width 16.5 % (11.5-14.5); Segmented Neutrophils % 77.2 %; White Blood Count 12.7 K/mcL (4.3-11.1)
[2020-02-26 05:22] LABS: VBG Ionized Calcium 1.13 mmol/L (1.15-1.35)
[2020-02-26] MEDS: *HR* Heparin 5,000 UNIT/ML VIAL SQ SCH ×3 (05:22→20:25)
[2020-02-26 05:32] LABS: Albumin 3.8 g/dL (3.5-5.7); Albumin/Globulin Ratio 1.1 (1.1-2.2); Calcium 9.9 mg/dL (8.6-10.3); Globulin 3.6 g/dL (2.4-3.5); Magnesium 1.7 mg/dL (1.6-2.6); Phosphorous 3.9 mg/dL (2.7-4.5); Potassium 4.2 mEq/L (3.5-5.1); Total Protein 7.4 g/dL (6.4-8.9)
[2020-02-26] MEDS: Budesonide/Formoterol 160/4.5 1 PUFF INH IH SCH ×2 (07:32→19:53)
[2020-02-26] MEDS ORDERED: Vancomycin 2,000 MG/520 ML IV.SOLN IVPB ONE ×2 (08:04→21:00)
[2020-02-26] MEDS: Aspirin Enteric Coated 81 MG Tablet PO SCH (08:35)
[2020-02-26] MEDS: Piperacillin/Tazobactam 3.375 GM in 0.9 % Sodium Chloride Mini Bag 100 ML IVPB SCH ×2 (08:35→17:23)
[2020-02-26] MEDS ORDERED: Ketamine *HR* 500 MG/10 ML MDV ONE (09:31)
[2020-02-26] MEDS ORDERED: *HR* Midazolam HCl 5 MG/5 ML VIAL IVP ONE (09:47)
[2020-02-26] MEDS ORDERED: Lidocaine -MPF 2% 2 ML VIAL ONE ×2 (10:49)
[2020-02-26] MEDS ORDERED: *HR* Propofol 200 MG/20 ML VIAL IVP ONE (10:49)
[2020-02-26] MEDS ORDERED: *HR* Succinylcholine 200 MG/10 ML VIAL IVP ONE (10:50)
[2020-02-26] MEDS ORDERED: Hydrocortisone Sodium Succ 100 MG/2 ML VIAL ONE (10:55)
[2020-02-26] MEDS: FentaNYL (PF) 1,000 MCG/100 ML IV.SOLN IVC SCH (11:53)
[2020-02-26] MEDS ORDERED: Furosemide 40 MG TABLET PO SCH (12:15)
[2020-02-26] MEDS: Midazolam HCl 50 MG/100 ML IV.SOLN IVC SCH (12:32)
[2020-02-26] MEDS: Furosemide 20 MG/2 ML VIAL IVP SCH ×2 (12:46→20:25)
[2020-02-26] MEDS ORDERED: 0.9 % Sodium Chloride 1,000 ML ONE (14:50)
[2020-02-26] MEDS ORDERED: 0.9 % Sodium Chloride 500 ML ONE (14:50)
[2020-02-26] MEDS ORDERED: ISOVUE-370 200 ML INFUS..BTL ONE (15:56)
[2020-02-27] MEDS: Piperacillin/Tazobactam 3.375 GM in 0.9 % Sodium Chloride Mini Bag 100 ML IVPB SCH ×3 (00:40→15:21)
[2020-02-27] MEDS: Insulin LISPRO 300 UNITS/3 ML VIAL SQ SCH ×4 (00:41→19:02)
[2020-02-27 05:01] LABS: Basophils # 0.1 K/mcL (0.0-0.2); Basophils % 0.5 %; Eosinophils # 0.3 K/mcL (0.0-0.6); Hematocrit 38.5 % (37.5-50.1); Immature Granulocytes % 0.6 % (0-4); Lymphocytes # 2.1 K/mcL (0.6-4.6); Mean Corpuscular HGB Conc 31.2 g/dL (31.6-35.5); Mean Corpuscular Hemoglobin 27.8 pg (28.0-33.3); Mean Corpuscular Volume 89.1 fL (83.0-100.0); Mean Platelet Volume 11.9 fL (9.4-12.4); Platelet Count 191 K/mcL (140-400); Red Blood Count 4.32 M/mcL (4.19-5.50); Red Cell Distribution Width 16.4 % (11.5-14.5); Segmented Neutrophils % 71.9 %; White Blood Count 12.6 K/mcL (4.3-11.1)
[2020-02-27] MEDS: *HR* Heparin 5,000 UNIT/ML VIAL SQ SCH ×3 (05:13→20:55)
[2020-02-27 05:29] LABS: Albumin 3.2 g/dL (3.5-5.7); Albumin/Globulin Ratio 0.9 (1.1-2.2); Bilirubin,Total 0.6 mg/dL (0.3-1.0); Calcium 9.1 mg/dL (8.6-10.3); Globulin 3.4 g/dL (2.4-3.5); Potassium 4.8 mEq/L (3.5-5.1); Total Protein 6.6 g/dL (6.4-8.9)
[2020-02-27] MEDS: Budesonide/Formoterol 160/4.5 1 PUFF INH IH SCH ×2 (07:38→19:36)
[2020-02-27] MEDS: Aspirin Enteric Coated 81 MG Tablet PO SCH (08:06)
[2020-02-27] MEDS: Furosemide 20 MG/2 ML VIAL IVP SCH (08:06)
[2020-02-27] MEDS ORDERED: Vancomycin 1,500 MG/265 ML IV.SOLN IVPB SCH ×2 (09:00→21:00)
[2020-02-27] MEDS ORDERED: carvediloL 25 MG TABLET PO SCH (12:15)
[2020-02-27] MEDS: FentaNYL (PF) 1,000 MCG/100 ML IV.SOLN IVC SCH (12:57)
[2020-02-27] MEDS: Midazolam HCl 50 MG/100 ML IV.SOLN IVC SCH (12:58)
[2020-02-27] MEDS ORDERED: Pregabalin 75 MG CAPSULE PO SCH (15:00)
[2020-02-27] MEDS ORDERED: Ipratropium/Albuterol Neb 3 ML IH PRN ×2 (16:00→19:10)
[2020-02-27] MEDS ORDERED: Perflutren Lipid Microsphere 1.3 ML in 0.9 % Sodium Chloride 8.7 ML IVP PRN (19:10)
[2020-02-27] MEDS ORDERED: Naloxone 0.4 MG/ML INJ IVP PRN (19:10)
[2020-02-27] MEDS ORDERED: Dextrose Gel 15 GM/37.5 ML TUBE PO PRN ×2 (19:10)
[2020-02-27] MEDS ORDERED: D5% in Water 1,000 ML IVC PRN (19:10)
[2020-02-27] MEDS ORDERED: *HR* Dextrose 50 % in Water (Vial) 50 ML VIAL IVP PRN (19:10)
[2020-02-27] MEDS: Famotidine 20 MG TABLET PO SCH (20:55)
[2020-02-27] MEDS: Pregabalin 75 MG CAPSULE PO SCH (20:56)
[2020-02-27] MEDS ORDERED: Vancomycin 1,250 MG/262.5 ML IV.SOLN IVPB SCH (21:00)
[2020-02-27] MEDS ORDERED: Insulin LISPRO 300 UNITS/3 ML VIAL SQ SCH ×2 (21:00)
[2020-02-27] MEDS ORDERED: Famotidine 20 MG TABLET PO SCH (21:00)
[2020-02-27] MEDS ORDERED: traZODone 50 MG TABLET PO SCH ×2 (21:00)
[2020-02-27] MEDS: Vancomycin 1,250 MG/262.5 ML IV.SOLN IVPB SCH (22:57)
[2020-02-28] MEDS: Piperacillin/Tazobactam 3.375 GM in 0.9 % Sodium Chloride Mini Bag 100 ML IVPB SCH ×2 (00:33→08:27)
[2020-02-28] MEDS: *HR* Heparin 5,000 UNIT/ML VIAL SQ SCH (04:52)
[2020-02-28] MEDS: Budesonide/Formoterol 160/4.5 1 PUFF INH IH SCH (07:27)
[2020-02-28] MEDS: Famotidine 20 MG TABLET PO SCH (08:24)
[2020-02-28] MEDS: Pregabalin 75 MG CAPSULE PO SCH (08:24)
[2020-02-28] MEDS ORDERED: carvediloL 25 MG TABLET PO SCH (09:00)
[2020-02-28] MEDS ORDERED: Furosemide 40 MG TABLET PO SCH ×2 (09:00)
[2020-02-28] MEDS ORDERED: Aspirin Enteric Coated 81 MG Tablet PO SCH ×2 (09:00)
[2020-02-28] MEDS: Insulin LISPRO 300 UNITS/3 ML VIAL SQ SCH ×2 (09:35→12:23)
[2020-02-28 10:06] LABS: Hematocrit 41.4 % (37.5-50.1); Hemoglobin 13.3 g/dL (12.9-16.9); Mean Corpuscular HGB Conc 32.1 g/dL (31.6-35.5); Mean Corpuscular Hemoglobin 28.3 pg (28.0-33.3); Mean Corpuscular Volume 88.1 fL (83.0-100.0); Mean Platelet Volume 11.7 fL (9.4-12.4); Platelet Count 215 K/mcL (140-400); Red Cell Distribution Width 15.9 % (11.5-14.5); White Blood Count 10.7 K/mcL (4.3-11.1)
[2020-02-28 10:25] LABS: BUN/Creatinine Ratio 21 (6-26); Blood Urea Nitrogen 29 mg/dL (8-23); Calcium 9.6 mg/dL (8.6-10.3); Carbon Dioxide 24 mEq/L (23-29); Chloride 95 mEq/L (98-107); Glucose 282 mg/dL (70-105); Magnesium 1.8 mg/dL (1.6-2.6); Osmolality,Calculated 292 (280-300); Phosphorous 2.7 mg/dL (2.7-4.5); Potassium 4.3 mEq/L (3.5-5.1); Sodium 133 mEq/L (136-145); eGFR For African Americans > 60 (> 60); eGFR For Non-African Americans 52 (> 60)
[2020-02-28] MEDS: Vancomycin 1,250 MG/262.5 ML IV.SOLN IVPB SCH (12:15)
[2020-02-28 12:20] VITALS: BP 143/79
== END 2020-02-28 14:18 | disposition home or self-care (01) | DRG 242 ==
LOC: ICNU 20:27 → EMEROOARM 20:27 → SUATTDRO 23:19 → ICNU 23:32 → 2ANU 02-27 21:45
PROVIDERS: ADMIT Family Medicine; ATTEND Internal Medicine

== ENCOUNTER 2020-03-28 07:00 | Observation (INO) ==
[2020-03-28] MEDS ORDERED: Ipratropium/Albuterol Neb 3 ML IH ONE (07:10)
[2020-03-28] MEDS ORDERED: predniSONE 20 MG TABLET PO ONE (07:12)
[2020-03-28 07:21] LABS: Basophils # 0.1 K/mcL (0.0-0.2); Basophils % 0.7 %; Eosinophils # 0.4 K/mcL (0.0-0.6); Eosinophils % 3.9 %; Hematocrit 38.7 % (37.5-50.1); Hemoglobin 12.1 g/dL (12.9-16.9); Immature Granulocytes % 0.6 % (0-4); Lymphocytes # 2.5 K/mcL (0.6-4.6); Lymphocytes % 23.5 %; Mean Corpuscular HGB Conc 31.3 g/dL (31.6-35.5); Mean Corpuscular Hemoglobin 28.1 pg (28.0-33.3); Mean Corpuscular Volume 89.8 fL (83.0-100.0); Mean Platelet Volume 11.1 fL (9.4-12.4); Monocytes % 9.5 %; Neutrophils # 6.6 K/mcL (1.6-8.9); Platelet Count 196 K/mcL (140-400); Red Blood Count 4.31 M/mcL (4.19-5.50); Segmented Neutrophils % 61.8 %; White Blood Count 10.6 K/mcL (4.3-11.1)
[2020-03-28] MEDS ORDERED: Furosemide 40 MG/4 ML VIAL IVP ONE (08:09)
[2020-03-28 08:14] LABS: Troponin I 0.24 ng/mL (< 0.04)
[2020-03-28] MEDS ORDERED: Aspirin 81 MG TAB.CHEW PO STA (08:15)
[2020-03-28 08:23] LABS: Adenovirus Not Detected (Not Detect); Bordetella Pertussis Not Detected (Not Detect); Chlamydophila pneumoniae Not Detected (Not Detect); Coronavirus 229E Not Detected (Not Detect); Coronavirus HKU1 Not Detected (Not Detect); Coronavirus NL63 Not Detected (Not Detect); Coronavirus OC43 Not Detected (Not Detect); Human Metapneumovirus Not Detected (Not Detect); Human Rhinovirus/Enterovirus Not Detected (Not Detect); Influenza A Subtype 2009 H1 Not Detected (Not Detect); Influenza B Not Detected (Not Detect); Mycoplasma pneumoniae Not Detected (Not Detect); Parainfluenza Virus 1 Not Detected (Not Detect); Parainfluenza Virus 2 Not Detected (Not Detect); Parainfluenza Virus 3 Not Detected (Not Detect); Parainfluenza Virus 4 Not Detected (Not Detect); Respiratory Syncytial Virus Not Detected (Not Detect); SARS-CoV-2 Not Detected (Not Detect)
[2020-03-28 08:27] LABS: BUN/Creatinine Ratio 21 (6-26); Blood Urea Nitrogen 23 mg/dL (8-23); Calcium 9.6 mg/dL (8.6-10.3); Carbon Dioxide 29 mEq/L (23-29); Chloride 99 mEq/L (98-107); Glucose 165 mg/dL (70-105); Osmolality,Calculated 287 (280-300); Potassium 4.2 mEq/L (3.5-5.1); Sodium 135 mEq/L (136-145); eGFR For African Americans > 60 (> 60); eGFR For Non-African Americans > 60 (> 60)
[2020-03-28 08:48] LABS: VBG HCO3 31 mEq/L (21-27); VBG PCO2 59 mmHg (41-51); VBG PH 7.33 pH Units (7.32-7.42); VBG PO2 134 mmHg (25-50)
[2020-03-28] MEDS ORDERED: Dextrose Gel 15 GM/37.5 ML TUBE PO PRN ×2 (09:10)
[2020-03-28] MEDS ORDERED: D5% in Water 1,000 ML IVC PRN (09:10)
[2020-03-28] MEDS ORDERED: Naloxone 0.4 MG/ML INJ IVP PRN (09:10)
[2020-03-28] MEDS ORDERED: Ondansetron 4 MG/2 ML VIAL IVP PRN (09:10)
[2020-03-28] MEDS ORDERED: Acetaminophen 325 MG TABLET PO PRN (09:10)
[2020-03-28] MEDS ORDERED: *HR* Dextrose 50 % in Water (Vial) 50 ML VIAL IVP PRN (09:10)
[2020-03-28] MEDS ORDERED: Ipratropium/Albuterol Neb 3 ML IH PRN (09:12)
[2020-03-28] MEDS ORDERED: Ipratropium/Albuterol Neb 3 ML IH SCH (10:00)
[2020-03-28] MEDS: Insulin LISPRO 300 UNITS/3 ML VIAL SQ SCH ×2 (11:23→16:31)
[2020-03-28] MEDS: amLODIPine 5 MG TABLET PO SCH (14:08)
[2020-03-28] MEDS: Pregabalin 50 MG CAPSULE PO SCH ×2 (14:08→21:11)
[2020-03-28] MEDS: *HR* Heparin 5,000 UNIT/ML VIAL SQ SCH (16:31)
[2020-03-28] MEDS: carvediloL 6.25 MG TABLET PO SCH (16:32)
[2020-03-28] MEDS: Furosemide 40 MG/4 ML VIAL IVP SCH (20:18)
[2020-03-28] MEDS ORDERED: rOPINIRole 1 MG TABLET PO SCH (21:00)
[2020-03-28] MEDS ORDERED: Insulin DETEMIR 100 UNIT/ML X5UNITS SQ SCH (21:00)
[2020-03-29 04:01] LABS: Basophils # 0.1 K/mcL (0.0-0.2); Basophils % 0.5 %; Eosinophils # 0.1 K/mcL (0.0-0.6); Eosinophils % 1.1 %; Hematocrit 39.9 % (37.5-50.1); Hemoglobin 12.7 g/dL (12.9-16.9); Immature Granulocytes % 0.5 % (0-4); Lymphocytes # 2.3 K/mcL (0.6-4.6); Lymphocytes % 23.1 %; Mean Corpuscular HGB Conc 31.8 g/dL (31.6-35.5); Mean Corpuscular Hemoglobin 28.5 pg (28.0-33.3); Mean Corpuscular Volume 89.7 fL (83.0-100.0); Monocytes # 0.9 K/mcL (0.0-1.3); Monocytes % 9.4 %; Neutrophils # 6.5 K/mcL (1.6-8.9); Platelet Count 204 K/mcL (140-400); Red Blood Count 4.45 M/mcL (4.19-5.50); Red Cell Distribution Width 16.7 % (11.5-14.5); Segmented Neutrophils % 65.4 %; White Blood Count 9.9 K/mcL (4.3-11.1)
[2020-03-29 04:21] LABS: BUN/Creatinine Ratio 28 (6-26); Blood Urea Nitrogen 34 mg/dL (8-23); Calcium 9.9 mg/dL (8.6-10.3); Carbon Dioxide 29 mEq/L (23-29); Chloride 95 mEq/L (98-107); Chol/HDL Ratio 3.1 (0-4.9); Cholesterol 177 mg/dL (< 200); Glucose 239 mg/dL (70-105); HDL Cholesterol 57 mg/dL (40-59); LDL Cholesterol,Calculated 87 mg/dL (< 100); Osmolality,Calculated 289 (280-300); Potassium 3.9 mEq/L (3.5-5.1); Sodium 132 mEq/L (136-145); Triglycerides 166 mg/dL (< 150); eGFR For African Americans > 60 (> 60); eGFR For Non-African Americans 59 (> 60)
[2020-03-29] MEDS: *HR* Heparin 5,000 UNIT/ML VIAL SQ SCH (06:26)
[2020-03-29] MEDS: Furosemide 40 MG/4 ML VIAL IVP SCH (07:48)
[2020-03-29] MEDS: Insulin LISPRO 300 UNITS/3 ML VIAL SQ SCH ×2 (07:49→12:34)
[2020-03-29] MEDS: Pregabalin 50 MG CAPSULE PO SCH (07:50)
[2020-03-29] MEDS: carvediloL 6.25 MG TABLET PO SCH (07:50)
[2020-03-29] MEDS: amLODIPine 5 MG TABLET PO SCH (07:50)
[2020-03-29] MEDS ORDERED: Aspirin Enteric Coated 81 MG Tablet PO SCH (09:00)
[2020-03-29] MEDS ORDERED: MethylPREDNISolone 40 MG/ML VIAL IVP SCH (09:00)
[2020-03-29 12:07] VITALS: BP 127/61
== END 2020-03-29 16:17 | disposition home or self-care (01) ==
LOC: CDU 07:00 → EMEROOARM 07:00 → OBSVTOIN 10:21 → INTOOBSV 10:21 → CDU 10:38
PROVIDERS: ADMIT Internal Medicine; ATTEND Internal Medicine

== ENCOUNTER 2020-06-14 21:55 | Observation (INO) ==
[2020-06-14] MEDS ORDERED: Dexamethasone Sodium Phos/PF 10 MG/ML VIAL IVP ONE (22:15)
[2020-06-14] MEDS ORDERED: Ipratropium/Albuterol Neb 3 ML IH ONE ×3 (22:15)
[2020-06-14] MEDS ORDERED: Furosemide 40 MG/4 ML VIAL IVP ONE (22:30)
[2020-06-14 22:51] LABS: Basophils # 0.1 K/mcL (0.0-0.2); Basophils % 0.6 %; Eosinophils # 0.3 K/mcL (0.0-0.6); Eosinophils % 1.9 %; Hematocrit 36.1 % (37.5-50.1); Immature Granulocytes % 0.6 % (0-4); Lymphocytes # 1.9 K/mcL (0.6-4.6); Lymphocytes % 14.1 %; Mean Corpuscular HGB Conc 30.5 g/dL (31.6-35.5); Mean Corpuscular Hemoglobin 26.6 pg (28.0-33.3); Mean Corpuscular Volume 87.4 fL (83.0-100.0); Mean Platelet Volume 11.1 fL (9.4-12.4); Monocytes # 0.8 K/mcL (0.0-1.3); Monocytes % 5.7 %; Neutrophils # 10.2 K/mcL (1.6-8.9); Platelet Count 299 K/mcL (140-400); Red Blood Count 4.13 M/mcL (4.19-5.50); Red Cell Distribution Width 15.6 % (11.5-14.5); Segmented Neutrophils % 77.1 %; White Blood Count 13.2 K/mcL (4.3-11.1)
[2020-06-14 23:18] LABS: BUN/Creatinine Ratio 21 (6-26); Blood Urea Nitrogen 24 mg/dL (8-23); Calcium 9.5 mg/dL (8.6-10.3); Carbon Dioxide 27 mEq/L (23-29); Chloride 93 mEq/L (98-107); Glucose 306 mg/dL (70-105); Osmolality,Calculated 284 (280-300); Potassium 5.3 mEq/L (3.5-5.1); Sodium 129 mEq/L (136-145); eGFR For African Americans > 60 (> 60); eGFR For Non-African Americans > 60 (> 60)
[2020-06-14 23:19] LABS: Troponin I < 0.03 ng/mL (< 0.04)
[2020-06-14 23:28] LABS: VBG HCO3 30 mEq/L (21-27); VBG PCO2 70 mmHg (41-51); VBG PH 7.25 pH Units (7.32-7.42); VBG PO2 119 mmHg (25-50)
[2020-06-14] MEDS ORDERED: Piperacillin/Tazobactam 3.375 GM in 0.9 % Sodium Chloride Mini Bag 100 ML IVPB ONE (23:33)
[2020-06-14] MEDS ORDERED: Vancomycin 2,000 MG/520 ML IV.SOLN IVPB ONE (23:45)
[2020-06-15] MEDS ORDERED: Isovue-370 500 ML BOTTLE IVP ONE (01:16)
[2020-06-15] MEDS ORDERED: Ondansetron 4 MG/2 ML VIAL IVP PRN (02:12)
[2020-06-15] MEDS ORDERED: Acetaminophen 325 MG TABLET PO PRN (02:12)
[2020-06-15] MEDS ORDERED: Naloxone 0.4 MG/ML INJ IVP PRN (02:12)
[2020-06-15 03:39] LABS: Hematocrit 36.2 % (37.5-50.1); Hemoglobin 10.9 g/dL (12.9-16.9); Mean Corpuscular HGB Conc 30.1 g/dL (31.6-35.5); Mean Corpuscular Hemoglobin 26.5 pg (28.0-33.3); Mean Corpuscular Volume 87.9 fL (83.0-100.0); Mean Platelet Volume 10.6 fL (9.4-12.4); Platelet Count 262 K/mcL (140-400); Red Blood Count 4.12 M/mcL (4.19-5.50); Red Cell Distribution Width 15.4 % (11.5-14.5); White Blood Count 12.1 K/mcL (4.3-11.1)
[2020-06-15 03:42] LABS: Adenovirus Not Detected (Not Detect); Coronavirus 229E Not Detected (Not Detect); Coronavirus HKU1 Not Detected (Not Detect); Coronavirus NL63 Not Detected (Not Detect); Coronavirus OC43 Not Detected (Not Detect); Human Metapneumovirus Not Detected (Not Detect); Human Rhinovirus/Enterovirus Not Detected (Not Detect); Influenza A Subtype 2009 H1 Not Detected (Not Detect); SARS-CoV-2 Not Detected (Not Detect)
[2020-06-15 03:43] LABS: Bordetella Pertussis Not Detected (Not Detect); Chlamydophila pneumoniae Not Detected (Not Detect); Influenza B Not Detected (Not Detect); Mycoplasma pneumoniae Not Detected (Not Detect); Parainfluenza Virus 1 Not Detected (Not Detect); Parainfluenza Virus 2 Not Detected (Not Detect); Parainfluenza Virus 3 Not Detected (Not Detect); Parainfluenza Virus 4 Not Detected (Not Detect); Respiratory Syncytial Virus Not Detected (Not Detect)
[2020-06-15 03:59] LABS: BUN/Creatinine Ratio 23 (6-26); Blood Urea Nitrogen 23 mg/dL (8-23); Calcium 9.3 mg/dL (8.6-10.3); Carbon Dioxide 27 mEq/L (23-29); Chloride 93 mEq/L (98-107); Glucose 314 mg/dL (70-105); Osmolality,Calculated 282 (280-300); Potassium 5.4 mEq/L (3.5-5.1); Sodium 128 mEq/L (136-145); eGFR For African Americans > 60 (> 60); eGFR For Non-African Americans > 60 (> 60)
[2020-06-15] MEDS ORDERED: *HR* Dextrose 50 % in Water (Vial) 50 ML VIAL IVP PRN (04:05)
[2020-06-15] MEDS ORDERED: D5% in Water 1,000 ML IVC PRN (04:05)
[2020-06-15] MEDS ORDERED: Dextrose Gel 15 GM/37.5 ML TUBE PO PRN ×2 (04:05)
[2020-06-15] MEDS: Ipratropium/Albuterol Neb 3 ML IH SCH ×6 (04:27→23:51)
[2020-06-15] MEDS: MethylPREDNISolone 40 MG/ML VIAL IVP SCH ×2 (05:42→12:34)
[2020-06-15] MEDS: *HR* Heparin 5,000 UNIT/ML VIAL SQ SCH ×3 (05:42→21:47)
[2020-06-15] MEDS ORDERED: Insulin LISPRO 300 UNITS/3 ML VIAL SUBQ SCH (06:00)
[2020-06-15] MEDS: amLODIPine 5 MG TABLET PO SCH (09:05)
[2020-06-15] MEDS: Furosemide 40 MG/4 ML VIAL IVP SCH ×2 (09:05→21:48)
[2020-06-15] MEDS: Aspirin Enteric Coated 81 MG Tablet PO SCH (09:05)
[2020-06-15] MEDS: carvediloL 25 MG TABLET PO SCH ×2 (09:21→16:33)
[2020-06-15 09:25] LABS: ABG Base Excess 4 mEq/L (-2 to 3); ABG HCO3 32 mEq/L (21-27); ABG Oxygen Saturation 94 % (95-98); ABG PCO2 61 mmHg (35-45); ABG PH 7.33 pH Units (7.32-7.45); ABG PO2 80 mmHg (85-104); ABG TCO2 34 mEq/L (20-26)
[2020-06-15] MEDS: Insulin DETEMIR 100 UNIT/ML X5UNITS SUBQ SCH ×2 (10:24→21:48)
[2020-06-15] MEDS ORDERED: Azithromycin 500 MG in 0.9 % Sodium Chloride 250 ML IVPB SCH (12:00)
[2020-06-15] MEDS: Insulin LISPRO 300 UNITS/3 ML VIAL SUBQ SCH ×2 (12:34→16:42)
[2020-06-15] MEDS: Doxycycline 100 MG in 0.9 % Sodium Chloride Mini Bag 100 ML IVPB SCH (16:33)
[2020-06-15] MEDS: Pregabalin 75 MG CAPSULE PO SCH (21:46)
[2020-06-16] MEDS: Ipratropium/Albuterol Neb 3 ML IH SCH ×5 (03:59→20:05)
[2020-06-16 04:30] LABS: Acinetobacter baumannii by PCR Not Detected (Not Detect); Candida albicans by PCR Not Detected (Not Detect); Candida glabrata by PCR Not Detected (Not Detect); Candida krusei by PCR Not Detected (Not Detect); Candida parapsilosis by PCR Not Detected (Not Detect); Candida tropicalis by PCR Not Detected (Not Detect); Enterobacter cloacae Cmplx PCR Not Detected (Not Detect); Enterobacteriaceae by PCR Not Detected (Not Detect); Enterococcus by PCR Not Detected (Not Detect); Escherichia coli by PCR Not Detected (Not Detect); Klebsiella oxytoca by PCR Not Detected (Not Detect); Klebsiella pneumoniae by PCR Not Detected (Not Detect); Proteus by PCR Not Detected (Not Detect); Pseudomonas aeruginosa by PCR Not Detected (Not Detect); Serratia marcescens by PCR Not Detected (Not Detect); Staphylococcus aureus by PCR Not Detected (Not Detect); Staphylococcus by PCR DETECTED (Not Detect); Streptococcus agalactiae(B)PCR Not Detected (Not Detect); Streptococcus by PCR Not Detected (Not Detect); Streptococcus pneumoniae PCR Not Detected (Not Detect); Streptococcus pyogenes (A) PCR Not Detected (Not Detect); blaKPC Carbapenem-Resist Gene Not Detected (Not Detect); mecA Methicillin-Resist Gene DETECTED (Not Detect); vanA/B Vancomycin-Resist Genes Not Detected (Not Detect)
[2020-06-16 05:37] LABS: VBG HCO3 30 mEq/L (21-27); VBG PCO2 48 mmHg (41-51); VBG PH 7.41 pH Units (7.32-7.42); VBG PO2 203 mmHg (25-50)
[2020-06-16] MEDS: Doxycycline 100 MG in 0.9 % Sodium Chloride Mini Bag 100 ML IVPB SCH ×2 (05:54→18:00)
[2020-06-16] MEDS: *HR* Heparin 5,000 UNIT/ML VIAL SQ SCH ×3 (05:54→20:36)
[2020-06-16 07:58] LABS: Hematocrit 32.8 % (37.5-50.1); Hemoglobin 10.4 g/dL (12.9-16.9); Mean Corpuscular HGB Conc 31.7 g/dL (31.6-35.5); Mean Corpuscular Hemoglobin 27.1 pg (28.0-33.3); Mean Corpuscular Volume 85.4 fL (83.0-100.0); Mean Platelet Volume 10.6 fL (9.4-12.4); Platelet Count 277 K/mcL (140-400); Red Blood Count 3.84 M/mcL (4.19-5.50); Red Cell Distribution Width 15.7 % (11.5-14.5); White Blood Count 13.8 K/mcL (4.3-11.1)
[2020-06-16 08:26] LABS: BUN/Creatinine Ratio 26 (6-26); Blood Urea Nitrogen 28 mg/dL (8-23); Calcium 9.7 mg/dL (8.6-10.3); Carbon Dioxide 28 mEq/L (23-29); Chloride 93 mEq/L (98-107); Glucose 355 mg/dL (70-105); Magnesium 1.9 mg/dL (1.6-2.6); Osmolality,Calculated 288 (280-300); Potassium 4.7 mEq/L (3.5-5.1); Sodium 129 mEq/L (136-145); eGFR For African Americans > 60 (> 60); eGFR For Non-African Americans > 60 (> 60)
[2020-06-16] MEDS: predniSONE 20 MG TABLET PO SCH (09:22)
[2020-06-16] MEDS: Aspirin Enteric Coated 81 MG Tablet PO SCH (09:23)
[2020-06-16] MEDS: lisinopriL 20 MG TABLET PO SCH (09:23)
[2020-06-16] MEDS: carvediloL 25 MG TABLET PO SCH ×2 (09:23→17:27)
[2020-06-16] MEDS: Pregabalin 75 MG CAPSULE PO SCH ×2 (09:23→20:35)
[2020-06-16] MEDS: Furosemide 40 MG/4 ML VIAL IVP SCH ×2 (09:23→20:35)
[2020-06-16] MEDS: amLODIPine 5 MG TABLET PO SCH (09:24)
[2020-06-16] MEDS: Insulin LISPRO 300 UNITS/3 ML VIAL SUBQ SCH ×4 (09:24→17:34)
[2020-06-16] MEDS: QUEtiapine Fumarate 25 MG TABLET PO SCH ×2 (09:26→20:35)
[2020-06-16] MEDS ORDERED: Insulin DETEMIR 100 UNIT/ML X5UNITS SUBQ SCH (09:30)
[2020-06-16] MEDS: Insulin DETEMIR 100 UNIT/ML X5UNITS SUBQ SCH ×2 (10:41→20:36)
[2020-06-16] MEDS ORDERED: Insulin LISPRO 300 UNITS/3 ML VIAL SUBQ SCH (12:00)
[2020-06-17] MEDS: Ipratropium/Albuterol Neb 3 ML IH SCH ×5 (00:04→15:46)
[2020-06-17] MEDS: *HR* Heparin 5,000 UNIT/ML VIAL SQ SCH (05:25)
[2020-06-17] MEDS: Doxycycline 100 MG in 0.9 % Sodium Chloride Mini Bag 100 ML IVPB SCH (05:25)
[2020-06-17 07:54] VITALS: BP 140/64
[2020-06-17 08:26] LABS: Basophils # 0.1 K/mcL (0.0-0.2); Basophils % 0.4 %; Eosinophils % 0.1 %; Hemoglobin 10.7 g/dL (12.9-16.9); Immature Granulocytes % 0.4 % (0-4); Lymphocytes # 2.7 K/mcL (0.6-4.6); Lymphocytes % 18.7 %; Mean Corpuscular HGB Conc 30.6 g/dL (31.6-35.5); Mean Corpuscular Hemoglobin 26.7 pg (28.0-33.3); Mean Corpuscular Volume 87.3 fL (83.0-100.0); Mean Platelet Volume 10.4 fL (9.4-12.4); Monocytes # 1.1 K/mcL (0.0-1.3); Neutrophils # 10.3 K/mcL (1.6-8.9); Platelet Count 276 K/mcL (140-400); Red Blood Count 4.01 M/mcL (4.19-5.50); Red Cell Distribution Width 15.8 % (11.5-14.5); Segmented Neutrophils % 72.4 %; White Blood Count 14.2 K/mcL (4.3-11.1)
[2020-06-17] MEDS: predniSONE 20 MG TABLET PO SCH (08:35)
[2020-06-17] MEDS: amLODIPine 5 MG TABLET PO SCH (08:35)
[2020-06-17] MEDS: QUEtiapine Fumarate 25 MG TABLET PO SCH (08:35)
[2020-06-17] MEDS: Insulin LISPRO 300 UNITS/3 ML VIAL SUBQ SCH ×2 (08:35→08:37)
[2020-06-17] MEDS: carvediloL 25 MG TABLET PO SCH (08:35)
[2020-06-17] MEDS: lisinopriL 20 MG TABLET PO SCH (08:35)
[2020-06-17] MEDS: Aspirin Enteric Coated 81 MG Tablet PO SCH (08:35)
[2020-06-17] MEDS: Pregabalin 75 MG CAPSULE PO SCH (08:36)
[2020-06-17] MEDS: Furosemide 40 MG/4 ML VIAL IVP SCH (08:36)
[2020-06-17] MEDS: Insulin DETEMIR 100 UNIT/ML X5UNITS SUBQ SCH (08:43)
[2020-06-17 08:45] LABS: BUN/Creatinine Ratio 33 (6-26); Blood Urea Nitrogen 39 mg/dL (8-23); Calcium 9.9 mg/dL (8.6-10.3); Carbon Dioxide 29 mEq/L (23-29); Chloride 94 mEq/L (98-107); Glucose 266 mg/dL (70-105); Magnesium 1.9 mg/dL (1.6-2.6); Osmolality,Calculated 293 (280-300); Phosphorous 3.1 mg/dL (2.7-4.5); Potassium 4.2 mEq/L (3.5-5.1); Sodium 132 mEq/L (136-145); eGFR For African Americans > 60 (> 60); eGFR For Non-African Americans > 60 (> 60)
[2020-06-17] MEDS ORDERED: Insulin LISPRO 300 UNITS/3 ML VIAL SUBQ SCH (12:00)
[2020-06-17] MEDS ORDERED: Insulin DETEMIR 100 UNIT/ML X5UNITS SUBQ SCH (21:00)
== END 2020-06-17 11:38 | disposition home or self-care (01) ==
LOC: 2ANU 21:55 → EMEROOARM 21:55 → SUATTDRO 06-15 00:17 → 2ANU 06-15 01:29
PROVIDERS: ADMIT Internal Medicine; ATTEND Internal Medicine

== ENCOUNTER 2020-06-24 20:38 | Inpatient (IN) ==
[2020-06-24] MEDS ORDERED: Isovue-370 500 ML BOTTLE IVP ONE (21:22)
[2020-06-24] MEDS ORDERED: 0.9 % Sodium Chloride 1,000 ML IVC ONE (21:22)
[2020-06-24 21:35] LABS: Basophils % 0.4 %; Eosinophils # 0.3 K/mcL (0.0-0.6); Eosinophils % 2.8 %; Hematocrit 39.3 % (37.5-50.1); Hemoglobin 12.4 g/dL (12.9-16.9); Immature Granulocytes % 0.7 % (0-4); Lymphocytes # 1.3 K/mcL (0.6-4.6); Lymphocytes % 13.5 %; Mean Corpuscular HGB Conc 31.6 g/dL (31.6-35.5); Mean Corpuscular Hemoglobin 27.1 pg (28.0-33.3); Mean Platelet Volume 11.6 fL (9.4-12.4); Monocytes % 9.7 %; Neutrophils # 7.1 K/mcL (1.6-8.9); Platelet Count 187 K/mcL (140-400); Red Blood Count 4.57 M/mcL (4.19-5.50); Red Cell Distribution Width 16.1 % (11.5-14.5); Segmented Neutrophils % 72.9 %; White Blood Count 9.8 K/mcL (4.3-11.1)
[2020-06-24 22:05] LABS: Albumin 3.9 g/dL (3.5-5.7); Albumin/Globulin Ratio 1.1 (1.1-2.2); Bilirubin,Direct 0.1 mg/dL (0.0-0.2); Bilirubin,Indirect 0.3 mg/dL (0.0-1.0); Bilirubin,Total 0.4 mg/dL (0.3-1.0); Calcium 10.1 mg/dL (8.6-10.3); Globulin 3.5 g/dL (2.4-3.5); Potassium 4.8 mEq/L (3.5-5.1); Total Protein 7.4 g/dL (6.4-8.9); Troponin I 0.04 ng/mL (< 0.04)
[2020-06-24 22:20] LABS: Bilirubin,Urine Negative (Negative); Blood,Urine Small (Negative); Clarity,Urine Clear (Clear); Color,Urine Colorless (Yellow); Glucose,Urine (UA) >=1000 mg/dL (Normal); Ketones,Urine Negative (Negative); Leukocyte Esterase,Urine Negative (Negative); Nitrite,Urine Negative (Negative); PH,Urine 6.5 pH Units (5.0-8.0); Protein,Urine 100 mg/dL (Neg-Trace); RBC,Urine 0-3 per hpf (0-3); Specific Gravity,Urine 1.026 (1.010-1.025); Urobilinogen,Urine Normal (Normal); WBC,Urine 0-3 per hpf (0-3)
[2020-06-24 22:55] LABS: ABG Base Excess 4 mEq/L (-2 to 3); ABG HCO3 29 mEq/L (21-27); ABG Oxygen Saturation 90 % (95-98); ABG PCO2 44 mmHg (35-45); ABG PH 7.43 pH Units (7.32-7.45); ABG PO2 56 mmHg (85-104); ABG TCO2 30 mEq/L (20-26)
[2020-06-24 23:01] LABS: VBG HCO3 26 mEq/L (21-27); VBG PCO2 31 mmHg (41-51); VBG PH 7.53 pH Units (7.32-7.42); VBG PO2 162 mmHg (25-50)
[2020-06-25] MEDS ORDERED: Insulin Human Regular 10 UNIT in 0.9 % Sodium Chloride 10 ML IV ONE ×2 (00:54→16:48)
[2020-06-25] MEDS ORDERED: Naloxone 0.4 MG/ML INJ IVP PRN (01:03)
[2020-06-25] MEDS ORDERED: Ondansetron ODT 4 MG TAB.RAPDIS SL PRN (01:03)
[2020-06-25] MEDS ORDERED: Acetaminophen 325 MG TABLET PO PRN (01:03)
[2020-06-25] MEDS ORDERED: Perflutren Lipid Microsphere 1.3 ML in 0.9 % Sodium Chloride 8.7 ML IVP PRN (01:05)
[2020-06-25] MEDS ORDERED: D5% in Water 1,000 ML IVC PRN (01:09)
[2020-06-25] MEDS ORDERED: *HR* Dextrose 50 % in Water (Vial) 50 ML VIAL IVP PRN (01:09)
[2020-06-25] MEDS ORDERED: Dextrose Gel 15 GM/37.5 ML TUBE PO PRN ×2 (01:09)
[2020-06-25] MEDS ORDERED: Furosemide 40 MG/4 ML VIAL IVP ONE (01:10)
[2020-06-25] MEDS ORDERED: Insulin DETEMIR 100 UNIT/ML X5UNITS SUBQ SCH ×2 (01:30→09:00)
[2020-06-25] MEDS: *HR* Heparin 5,000 UNIT/ML VIAL SQ SCH ×3 (05:32→20:32)
[2020-06-25] MEDS: Insulin LISPRO 300 UNITS/3 ML VIAL SUBQ SCH ×9 (07:18→21:02)
[2020-06-25] MEDS: Nystatin POWDER 30 GM BOTTLE TP SCH ×3 (07:20→10:39)
[2020-06-25 07:41] LABS: Basophils % 0.4 %; Eosinophils % 0.3 %; Hematocrit 38.2 % (37.5-50.1); Hemoglobin 12.3 g/dL (12.9-16.9); Immature Granulocytes % 0.5 % (0-4); Lymphocytes # 0.6 K/mcL (0.6-4.6); Lymphocytes % 5.8 %; Mean Corpuscular HGB Conc 32.2 g/dL (31.6-35.5); Mean Corpuscular Volume 83.8 fL (83.0-100.0); Mean Platelet Volume 11.6 fL (9.4-12.4); Monocytes # 0.3 K/mcL (0.0-1.3); Monocytes % 2.4 %; Neutrophils # 9.8 K/mcL (1.6-8.9); Platelet Count 188 K/mcL (140-400); Red Blood Count 4.56 M/mcL (4.19-5.50); Segmented Neutrophils % 90.6 %; White Blood Count 10.8 K/mcL (4.3-11.1)
[2020-06-25 07:46] LABS: INR 1.2; Prothrombin Time 13.6 Seconds (9.4-12.1)
[2020-06-25 07:54] LABS: Estimated Average Glucose 232 mg/dl; Hemoglobin A1C 9.7 %
[2020-06-25 08:01] LABS: Ethanol < 10 mg/dL (Less than 10)
[2020-06-25 08:24] LABS: BUN/Creatinine Ratio 22 (6-26); Blood Urea Nitrogen 25 mg/dL (8-23); Calcium 9.8 mg/dL (8.6-10.3); Carbon Dioxide 28 mEq/L (23-29); Chloride 95 mEq/L (98-107); Chol/HDL Ratio 3.6 (0-4.9); Cholesterol 165 mg/dL (< 200); Glucose 472 mg/dL (70-105); HDL Cholesterol 46 mg/dL (40-59); LDL Cholesterol,Calculated 102 mg/dL (< 100); Magnesium 1.6 mg/dL (1.6-2.6); Osmolality,Calculated 299 (280-300); Phosphorous 2.6 mg/dL (2.7-4.5); Potassium 4.6 mEq/L (3.5-5.1); Sodium 132 mEq/L (136-145); Thyroid Stimulating Hormone 1.168 mcIU/mL (0.340-5.600); Triglycerides 87 mg/dL (< 150); eGFR For African Americans > 60 (> 60); eGFR For Non-African Americans > 60 (> 60)
[2020-06-25 08:26] LABS: Ferritin 179 ng/mL (20-250)
[2020-06-25] MEDS: Ipratropium 1 PUFF INHALER IH SCH ×5 (08:40→23:04)
[2020-06-25] MEDS ORDERED: cefTRIAXone 1,000 MG in 0.9 % Sodium Chloride Mini Bag 100 ML IVPB SCH (09:00)
[2020-06-25] MEDS ORDERED: Azithromycin 500 MG in 0.9 % Sodium Chloride 250 ML IVPB SCH (09:00)
[2020-06-25 09:51] LABS: C-Reactive Protein 120 mg/L (Less than 10)
[2020-06-25] MEDS: Nystatin Cream 15 GM TUBE TP SCH ×2 (12:22→20:32)
[2020-06-25 13:28] LABS: Amphetamine Screen,Urine Negative ng/mL (Cutoff=1000); Barbiturate Screen,Urine Negative ng/mL (Cutoff=200); Benzodiazepines Screen,Urine Negative ng/mL (Cutoff=200); Cannabinoid Screen,Urine Negative ng/mL (Cutoff = 50); Cocaine Screen,Urine Negative ng/mL (Cutoff= 300); Opiate Screen,Urine Negative ng/mL (Cutoff=300); Phencyclidine Screen,Urine Negative ng/mL (Cutoff=25)
[2020-06-25] MEDS: Insulin DETEMIR 100 UNIT/ML X5UNITS SUBQ SCH (20:29)
[2020-06-26] MEDS: Ipratropium 1 PUFF INHALER IH SCH ×6 (03:42→23:32)
[2020-06-26] MEDS: *HR* Heparin 5,000 UNIT/ML VIAL SQ SCH ×3 (05:54→22:19)
[2020-06-26 08:01] LABS: Basophils % 0.1 %; Hematocrit 43.4 % (37.5-50.1); Immature Granulocytes % 0.5 % (0-4); Lymphocytes # 1.5 K/mcL (0.6-4.6); Lymphocytes % 7.9 %; Mean Corpuscular Hemoglobin 26.6 pg (28.0-33.3); Mean Platelet Volume 11.3 fL (9.4-12.4); Monocytes # 0.9 K/mcL (0.0-1.3); Monocytes % 4.9 %; Neutrophils # 16.1 K/mcL (1.6-8.9); Platelet Count 219 K/mcL (140-400); Red Blood Count 5.23 M/mcL (4.19-5.50); Red Cell Distribution Width 16.1 % (11.5-14.5); Segmented Neutrophils % 86.6 %
[2020-06-26 08:03] LABS: Hemoglobin 13.9 g/dL (12.9-16.9); White Blood Count 18.6 K/mcL (4.3-11.1)
[2020-06-26 08:17] LABS: Alanine Aminotransferase 15 Units/L (7-52); Albumin 3.6 g/dL (3.5-5.7); Albumin/Globulin Ratio 0.9 (1.1-2.2); Alkaline Phosphatase 74 Units/L (34-104); Aspartate Amino Transferase 17 Units/L (13-39); BUN/Creatinine Ratio 29 (6-26); Bilirubin,Total 0.4 mg/dL (0.3-1.0); Blood Urea Nitrogen 28 mg/dL (8-23); Calcium 10.2 mg/dL (8.6-10.3); Carbon Dioxide 33 mEq/L (23-29); Chloride 95 mEq/L (98-107); Globulin 3.9 g/dL (2.4-3.5); Glucose 313 mg/dL (70-105); Osmolality,Calculated 301 (280-300); Potassium 3.7 mEq/L (3.5-5.1); Sodium 137 mEq/L (136-145); Total Protein 7.5 g/dL (6.4-8.9); eGFR For African Americans > 60 (> 60); eGFR For Non-African Americans > 60 (> 60)
[2020-06-26] MEDS ORDERED: Furosemide 20 MG/2 ML VIAL IVP SCH ×2 (09:00)
[2020-06-26] MEDS: Insulin LISPRO 300 UNITS/3 ML VIAL SUBQ SCH ×7 (09:53→20:05)
[2020-06-26] MEDS: Nystatin Cream 15 GM TUBE TP SCH ×2 (09:57→20:01)
[2020-06-26] MEDS: Insulin DETEMIR 100 UNIT/ML X5UNITS SUBQ SCH ×2 (10:00→20:00)
[2020-06-26] MEDS: amLODIPine 5 MG TABLET PO SCH (13:57)
[2020-06-26] MEDS: carvediloL 25 MG TABLET PO SCH (16:34)
[2020-06-26] MEDS ORDERED: *HR* Metoprolol 5 MG/5 ML VIAL IVP PRN (19:50)
[2020-06-26] MEDS: Aspirin Enteric Coated 81 MG Tablet PO SCH (20:00)
[2020-06-26] MEDS: Famotidine 20 MG TABLET PO SCH (20:00)
[2020-06-26] MEDS ORDERED: Pregabalin 75 MG CAPSULE PO SCH (21:00)
[2020-06-26] MEDS ORDERED: Furosemide 40 MG/4 ML VIAL IVP ONE (22:00)
[2020-06-26] MEDS ORDERED: *HR* LORazepam 2 MG/ML VIAL IVP ONE (22:15)
[2020-06-26 22:33] LABS: ABG Base Excess 6 mEq/L (-2 to 3); ABG HCO3 30 mEq/L (21-27); ABG Oxygen Saturation 94 % (95-98); ABG PCO2 40 mmHg (35-45); ABG PH 7.49 pH Units (7.32-7.45); ABG PO2 67 mmHg (85-104); ABG TCO2 31 mEq/L (20-26)
[2020-06-27] MEDS ORDERED: *HR* Metoprolol 5 MG/5 ML VIAL IVP ONE
[2020-06-27] MEDS ORDERED: Acetaminophen IV 500 MG/50 ML BAG IVPB ONE (00:48)
[2020-06-27] MEDS: Ipratropium 1 PUFF INHALER IH SCH ×5 (03:48→20:29)
[2020-06-27] MEDS: *HR* Heparin 5,000 UNIT/ML VIAL SQ SCH ×3 (05:26→21:27)
[2020-06-27 05:54] LABS: Basophils % 0.2 %; Hematocrit 47.8 % (37.5-50.1); Immature Granulocytes % 0.5 % (0-4); Lymphocytes # 1.3 K/mcL (0.6-4.6); Lymphocytes % 8.7 %; Mean Corpuscular HGB Conc 31.4 g/dL (31.6-35.5); Mean Corpuscular Hemoglobin 26.9 pg (28.0-33.3); Mean Corpuscular Volume 85.7 fL (83.0-100.0); Mean Platelet Volume 11.8 fL (9.4-12.4); Monocytes # 1.1 K/mcL (0.0-1.3); Neutrophils # 12.6 K/mcL (1.6-8.9); Platelet Count 235 K/mcL (140-400); Red Blood Count 5.58 M/mcL (4.19-5.50); Red Cell Distribution Width 16.6 % (11.5-14.5); Segmented Neutrophils % 83.6 %; White Blood Count 15.1 K/mcL (4.3-11.1)
[2020-06-27 06:17] LABS: Albumin 3.4 g/dL (3.5-5.7); Albumin/Globulin Ratio 0.9 (1.1-2.2); Bilirubin,Total 0.4 mg/dL (0.3-1.0); Calcium 9.7 mg/dL (8.6-10.3); Globulin 3.9 g/dL (2.4-3.5); Potassium 4.4 mEq/L (3.5-5.1); Total Protein 7.3 g/dL (6.4-8.9)
[2020-06-27] MEDS ORDERED: 0.9 % Sodium Chloride 250 ML IVC ONE ×2 (07:37→14:03)
[2020-06-27] MEDS: Budesonide/Formoterol 160/4.5 1 PUFF INH IH SCH ×3 (07:50→20:29)
[2020-06-27] MEDS: carvediloL 25 MG TABLET PO SCH ×2 (08:40→16:12)
[2020-06-27] MEDS: Insulin DETEMIR 100 UNIT/ML X5UNITS SUBQ SCH ×2 (08:40→20:01)
[2020-06-27] MEDS: amLODIPine 5 MG TABLET PO SCH (08:41)
[2020-06-27] MEDS: Famotidine 20 MG TABLET PO SCH (08:41)
[2020-06-27] MEDS: Insulin LISPRO 300 UNITS/3 ML VIAL SUBQ SCH ×7 (08:44→20:30)
[2020-06-27] MEDS: Dexmedetomidine HCl 400 MCG/100 ML MLS IVC SCH ×2 (08:47→12:41)
[2020-06-27] MEDS ORDERED: lisinopriL 20 MG TABLET PO SCH (09:00)
[2020-06-27] MEDS ORDERED: Pregabalin 75 MG CAPSULE PO SCH (09:00)
[2020-06-27] MEDS: Nystatin Cream 15 GM TUBE TP SCH ×2 (12:44→19:56)
[2020-06-27] MEDS ORDERED: Vancomycin 2,000 MG/520 ML IV.SOLN IVPB ONE (15:31)
[2020-06-27] MEDS ORDERED: Piperacillin/Tazobactam 3.375 GM in 0.9 % Sodium Chloride Mini Bag 100 ML IVPB SCH (18:20)
[2020-06-27] MEDS: Aspirin Enteric Coated 81 MG Tablet PO SCH (20:01)
[2020-06-27] MEDS: Doxycycline 100 MG in 0.9 % Sodium Chloride Mini Bag 100 ML IVPB SCH (20:03)
[2020-06-28] MEDS: Ipratropium 1 PUFF INHALER IH SCH ×7 (00:15→23:15)
[2020-06-28] MEDS: Piperacillin/Tazobactam 3.375 GM in 0.9 % Sodium Chloride Mini Bag 100 ML IVPB SCH ×3 (02:30→17:46)
[2020-06-28] MEDS: Vancomycin 2,000 MG/520 ML IV.SOLN IVPB SCH (03:47)
[2020-06-28] MEDS: *HR* Heparin 5,000 UNIT/ML VIAL SQ SCH ×3 (06:07→20:57)
[2020-06-28] MEDS: Doxycycline 100 MG in 0.9 % Sodium Chloride Mini Bag 100 ML IVPB SCH (06:07)
[2020-06-28] MEDS ORDERED: Famotidine 20 MG TABLET PO SCH (07:30)
[2020-06-28 07:56] LABS: Basophils % 0.1 %; Hemoglobin 13.6 g/dL (12.9-16.9); Immature Granulocytes % 0.5 % (0-4); Lymphocytes # 1.5 K/mcL (0.6-4.6); Lymphocytes % 11.4 %; Mean Corpuscular HGB Conc 31.6 g/dL (31.6-35.5); Mean Corpuscular Hemoglobin 27.1 pg (28.0-33.3); Mean Corpuscular Volume 85.8 fL (83.0-100.0); Monocytes # 0.9 K/mcL (0.0-1.3); Monocytes % 6.5 %; Neutrophils # 10.7 K/mcL (1.6-8.9); Platelet Count 200 K/mcL (140-400); Red Blood Count 5.01 M/mcL (4.19-5.50); Segmented Neutrophils % 81.5 %; White Blood Count 13.1 K/mcL (4.3-11.1)
[2020-06-28] MEDS: Budesonide/Formoterol 160/4.5 1 PUFF INH IH SCH ×2 (08:08→19:35)
[2020-06-28 08:20] LABS: Albumin/Globulin Ratio 0.8 (1.1-2.2); Bilirubin,Total 0.4 mg/dL (0.3-1.0); Calcium 9.2 mg/dL (8.6-10.3); Globulin 3.7 g/dL (2.4-3.5); Total Protein 6.7 g/dL (6.4-8.9)
[2020-06-28] MEDS: amLODIPine 5 MG TABLET PO SCH (09:16)
[2020-06-28] MEDS: Famotidine 20 MG TABLET PO SCH (09:17)
[2020-06-28] MEDS: carvediloL 25 MG TABLET PO SCH ×2 (09:17→17:47)
[2020-06-28] MEDS: Insulin LISPRO 300 UNITS/3 ML VIAL SUBQ SCH ×7 (09:20→21:19)
[2020-06-28] MEDS: Nystatin Cream 15 GM TUBE TP SCH ×2 (09:23→21:25)
[2020-06-28] MEDS: Insulin DETEMIR 100 UNIT/ML X5UNITS SUBQ SCH ×2 (09:24→21:00)
[2020-06-28] MEDS: Aspirin Enteric Coated 81 MG Tablet PO SCH (20:55)
[2020-06-29] MEDS: Piperacillin/Tazobactam 3.375 GM in 0.9 % Sodium Chloride Mini Bag 100 ML IVPB SCH ×3 (02:02→17:09)
[2020-06-29] MEDS: Ipratropium 1 PUFF INHALER IH SCH ×6 (03:15→23:31)
[2020-06-29 03:25] LABS: Basophils % 0.1 %; Hematocrit 39.4 % (37.5-50.1); Hemoglobin 12.9 g/dL (12.9-16.9); Immature Granulocytes % 0.3 % (0-4); Lymphocytes # 1.1 K/mcL (0.6-4.6); Lymphocytes % 9.8 %; Mean Corpuscular HGB Conc 32.7 g/dL (31.6-35.5); Mean Corpuscular Hemoglobin 27.3 pg (28.0-33.3); Mean Corpuscular Volume 83.5 fL (83.0-100.0); Mean Platelet Volume 11.1 fL (9.4-12.4); Monocytes # 0.5 K/mcL (0.0-1.3); Monocytes % 4.9 %; Neutrophils # 9.2 K/mcL (1.6-8.9); Platelet Count 182 K/mcL (140-400); Red Blood Count 4.72 M/mcL (4.19-5.50); Red Cell Distribution Width 15.1 % (11.5-14.5); Segmented Neutrophils % 84.9 %; White Blood Count 10.8 K/mcL (4.3-11.1)
[2020-06-29 03:44] LABS: Alanine Aminotransferase 23 Units/L (7-52); Albumin/Globulin Ratio 0.8 (1.1-2.2); Alkaline Phosphatase 55 Units/L (34-104); Aspartate Amino Transferase 25 Units/L (13-39); BUN/Creatinine Ratio 34 (6-26); Bilirubin,Total 0.4 mg/dL (0.3-1.0); Blood Urea Nitrogen 46 mg/dL (8-23); Carbon Dioxide 24 mEq/L (23-29); Chloride 99 mEq/L (98-107); Globulin 3.6 g/dL (2.4-3.5); Glucose 225 mg/dL (70-105); Osmolality,Calculated 295 (280-300); Sodium 133 mEq/L (136-145); Total Protein 6.6 g/dL (6.4-8.9); eGFR For African Americans > 60 (> 60); eGFR For Non-African Americans 53 (> 60)
[2020-06-29] MEDS: Vancomycin 2,000 MG/520 ML IV.SOLN IVPB SCH (04:18)
[2020-06-29] MEDS: *HR* Heparin 5,000 UNIT/ML VIAL SQ SCH ×3 (05:16→22:08)
[2020-06-29] MEDS: Budesonide/Formoterol 160/4.5 1 PUFF INH IH SCH ×2 (08:04→20:13)
[2020-06-29] MEDS: Famotidine 20 MG TABLET PO SCH ×2 (09:17→22:08)
[2020-06-29] MEDS: carvediloL 25 MG TABLET PO SCH ×2 (09:17→17:09)
[2020-06-29] MEDS: amLODIPine 5 MG TABLET PO SCH (09:17)
[2020-06-29] MEDS: Insulin DETEMIR 100 UNIT/ML X5UNITS SUBQ SCH ×2 (09:19→22:15)
[2020-06-29] MEDS: Insulin LISPRO 300 UNITS/3 ML VIAL SUBQ SCH ×7 (09:20→22:15)
[2020-06-29] MEDS: Nystatin Cream 15 GM TUBE TP SCH ×2 (09:25→22:16)
[2020-06-29] MEDS ORDERED: Furosemide 40 MG/4 ML VIAL IVP ONE (11:36)
[2020-06-29] MEDS ORDERED: Remdesivir 200 MG in 0.9 % Sodium Chloride 100 ML IVPB ONE (15:00)
[2020-06-29] MEDS ORDERED: 0.9 % Sodium Chloride 250 ML ONE (15:17)
[2020-06-29] MEDS: Aspirin Enteric Coated 81 MG Tablet PO SCH (22:07)
[2020-06-30] MEDS: Piperacillin/Tazobactam 3.375 GM in 0.9 % Sodium Chloride Mini Bag 100 ML IVPB SCH ×3 (02:00→18:25)
[2020-06-30] MEDS: Ipratropium 1 PUFF INHALER IH SCH ×6 (04:20→23:15)
[2020-06-30 04:47] LABS: Basophils % 0.1 %; Hematocrit 39.9 % (37.5-50.1); Hemoglobin 12.8 g/dL (12.9-16.9); Immature Granulocytes % 0.5 % (0-4); Lymphocytes # 0.9 K/mcL (0.6-4.6); Lymphocytes % 8.1 %; Mean Corpuscular HGB Conc 32.1 g/dL (31.6-35.5); Mean Corpuscular Hemoglobin 26.9 pg (28.0-33.3); Mean Corpuscular Volume 83.8 fL (83.0-100.0); Monocytes # 0.5 K/mcL (0.0-1.3); Monocytes % 4.5 %; Neutrophils # 9.8 K/mcL (1.6-8.9); Platelet Count 208 K/mcL (140-400); Red Blood Count 4.76 M/mcL (4.19-5.50); Segmented Neutrophils % 86.8 %; White Blood Count 11.2 K/mcL (4.3-11.1)
[2020-06-30 04:52] LABS: INR 1.1; Prothrombin Time 12.4 Seconds (9.4-12.1)
[2020-06-30 05:04] LABS: Alanine Aminotransferase 29 Units/L (7-52); Albumin 3.2 g/dL (3.5-5.7); Albumin/Globulin Ratio 0.9 (1.1-2.2); Alkaline Phosphatase 58 Units/L (34-104); Aspartate Amino Transferase 31 Units/L (13-39); BUN/Creatinine Ratio 33 (6-26); Bilirubin,Total 0.4 mg/dL (0.3-1.0); Blood Urea Nitrogen 37 mg/dL (8-23); Calcium 9.4 mg/dL (8.6-10.3); Carbon Dioxide 29 mEq/L (23-29); Chloride 99 mEq/L (98-107); Globulin 3.7 g/dL (2.4-3.5); Glucose 160 mg/dL (70-105); Osmolality,Calculated 294 (280-300); Potassium 3.9 mEq/L (3.5-5.1); Sodium 136 mEq/L (136-145); Total Protein 6.9 g/dL (6.4-8.9); eGFR For African Americans > 60 (> 60); eGFR For Non-African Americans > 60 (> 60)
[2020-06-30] MEDS: Vancomycin 2,000 MG/520 ML IV.SOLN IVPB SCH (05:19)
[2020-06-30] MEDS: *HR* Heparin 5,000 UNIT/ML VIAL SQ SCH ×2 (05:45→17:26)
[2020-06-30] MEDS ORDERED: Vancomycin 1,500 MG/265 ML IV.SOLN IVPB SCH (06:00)
[2020-06-30] MEDS: Famotidine 20 MG TABLET PO SCH ×2 (07:50→21:06)
[2020-06-30] MEDS: amLODIPine 5 MG TABLET PO SCH (07:50)
[2020-06-30] MEDS: carvediloL 25 MG TABLET PO SCH ×2 (07:50→16:45)
[2020-06-30] MEDS: Insulin DETEMIR 100 UNIT/ML X5UNITS SUBQ SCH ×2 (07:51→21:07)
[2020-06-30] MEDS: Insulin LISPRO 300 UNITS/3 ML VIAL SUBQ SCH ×7 (07:53→21:07)
[2020-06-30] MEDS: Nystatin Cream 15 GM TUBE TP SCH ×2 (07:55→21:06)
[2020-06-30] MEDS: Budesonide/Formoterol 160/4.5 1 PUFF INH IH SCH ×2 (08:10→20:05)
[2020-06-30] MEDS ORDERED: Dexamethasone Sodium Phos/PF 10 MG/ML VIAL IVP SCH (09:00)
[2020-06-30] MEDS: Furosemide 20 MG/2 ML VIAL IVP SCH (09:47)
[2020-06-30] MEDS: Remdesivir 100 MG in 0.9 % Sodium Chloride 100 ML IVPB SCH (15:31)
[2020-06-30] MEDS: Vancomycin 1,250 MG/262.5 ML IV.SOLN IVPB SCH (18:24)
[2020-06-30] MEDS: Aspirin Enteric Coated 81 MG Tablet PO SCH (21:06)
[2020-06-30] MEDS: QUEtiapine Fumarate 25 MG TABLET PO SCH (21:06)
[2020-06-30] MEDS: *HR* Enoxaparin 40 MG/0.4 ML SYRINGE SQ SCH (21:06)
[2020-07-01] MEDS: Piperacillin/Tazobactam 3.375 GM in 0.9 % Sodium Chloride Mini Bag 100 ML IVPB SCH ×3 (00:58→18:10)
[2020-07-01] MEDS: Ipratropium 1 PUFF INHALER IH SCH ×6 (04:00→23:28)
[2020-07-01 04:11] LABS: ABG Base Excess 3 mEq/L (-2 to 3); ABG HCO3 27 mEq/L (21-27); ABG Oxygen Saturation 94 % (95-98); ABG PCO2 40 mmHg (35-45); ABG PH 7.44 pH Units (7.32-7.45); ABG PO2 66 mmHg (85-104); ABG TCO2 29 mEq/L (20-26)
[2020-07-01 04:50] LABS: Basophils % 0.2 %; Hematocrit 40.1 % (37.5-50.1); Hemoglobin 13.1 g/dL (12.9-16.9); Immature Granulocytes % 0.7 % (0-4); Lymphocytes % 10.6 %; Mean Corpuscular HGB Conc 32.7 g/dL (31.6-35.5); Mean Corpuscular Hemoglobin 26.8 pg (28.0-33.3); Mean Corpuscular Volume 82.2 fL (83.0-100.0); Monocytes # 0.5 K/mcL (0.0-1.3); Monocytes % 5.4 %; Neutrophils # 7.8 K/mcL (1.6-8.9); Platelet Count 239 K/mcL (140-400); Red Blood Count 4.88 M/mcL (4.19-5.50); Red Cell Distribution Width 15.2 % (11.5-14.5); Segmented Neutrophils % 83.1 %; White Blood Count 9.4 K/mcL (4.3-11.1)
[2020-07-01 05:05] LABS: INR 1.1; Prothrombin Time 12.7 Seconds (9.4-12.1)
[2020-07-01 05:10] LABS: Alanine Aminotransferase 27 Units/L (7-52); Albumin 3.1 g/dL (3.5-5.7); Albumin/Globulin Ratio 0.9 (1.1-2.2); Alkaline Phosphatase 53 Units/L (34-104); Aspartate Amino Transferase 27 Units/L (13-39); BUN/Creatinine Ratio 33 (6-26); Bilirubin,Total 0.4 mg/dL (0.3-1.0); Blood Urea Nitrogen 36 mg/dL (8-23); C-Reactive Protein 38 mg/L (Less than 10); Calcium 9.2 mg/dL (8.6-10.3); Carbon Dioxide 24 mEq/L (23-29); Chloride 102 mEq/L (98-107); Globulin 3.6 g/dL (2.4-3.5); Glucose 138 mg/dL (70-105); Lactate Dehydrogenase 334 Units/L (140-271); Magnesium 1.8 mg/dL (1.6-2.6); Osmolality,Calculated 295 (280-300); Phosphorous 3.6 mg/dL (2.7-4.5); Potassium 3.9 mEq/L (3.5-5.1); Sodium 137 mEq/L (136-145); Total Protein 6.7 g/dL (6.4-8.9); eGFR For African Americans > 60 (> 60); eGFR For Non-African Americans > 60 (> 60)
[2020-07-01] MEDS: Vancomycin 1,250 MG/262.5 ML IV.SOLN IVPB SCH ×2 (05:11→18:17)
[2020-07-01 05:20] LABS: Ferritin 470 ng/mL (20-250)
[2020-07-01 05:27] LABS: Folate 8.8 ng/mL (3.0-16.0)
[2020-07-01] MEDS: Budesonide/Formoterol 160/4.5 1 PUFF INH IH SCH ×2 (07:38→20:18)
[2020-07-01] MEDS: Insulin LISPRO 300 UNITS/3 ML VIAL SUBQ SCH ×7 (09:34→20:45)
[2020-07-01] MEDS: *HR* Enoxaparin 40 MG/0.4 ML SYRINGE SQ SCH ×2 (09:36→20:38)
[2020-07-01] MEDS: Pantoprazole 40 MG VIAL IVP SCH (09:36)
[2020-07-01] MEDS: Dexamethasone Sodium Phos/PF 10 MG/ML VIAL IVP SCH (09:37)
[2020-07-01] MEDS: Furosemide 20 MG/2 ML VIAL IVP SCH (09:37)
[2020-07-01] MEDS: carvediloL 25 MG TABLET PO SCH ×2 (09:38→18:13)
[2020-07-01] MEDS: Famotidine 20 MG TABLET PO SCH (09:38)
[2020-07-01] MEDS: amLODIPine 5 MG TABLET PO SCH (09:38)
[2020-07-01] MEDS: Insulin DETEMIR 100 UNIT/ML X5UNITS SUBQ SCH ×2 (09:59→20:38)
[2020-07-01] MEDS: Nystatin Cream 15 GM TUBE TP SCH ×2 (11:58→20:39)
[2020-07-01] MEDS: Remdesivir 100 MG in 0.9 % Sodium Chloride 100 ML IVPB SCH (16:21)
[2020-07-01] MEDS: Aspirin Enteric Coated 81 MG Tablet PO SCH (20:38)
[2020-07-01] MEDS: QUEtiapine Fumarate 25 MG TABLET PO SCH (20:38)
[2020-07-02] MEDS: Piperacillin/Tazobactam 3.375 GM in 0.9 % Sodium Chloride Mini Bag 100 ML IVPB SCH ×3 (01:03→17:27)
[2020-07-02 03:25] LABS: Basophils % 0.1 %; Hematocrit 39.5 % (37.5-50.1); Hemoglobin 12.5 g/dL (12.9-16.9); Immature Granulocytes % 0.7 % (0-4); Lymphocytes # 0.9 K/mcL (0.6-4.6); Lymphocytes % 9.7 %; Mean Corpuscular HGB Conc 31.6 g/dL (31.6-35.5); Mean Corpuscular Hemoglobin 26.3 pg (28.0-33.3); Mean Platelet Volume 11.3 fL (9.4-12.4); Monocytes # 0.5 K/mcL (0.0-1.3); Monocytes % 4.6 %; Neutrophils # 8.2 K/mcL (1.6-8.9); Platelet Count 261 K/mcL (140-400); Red Blood Count 4.76 M/mcL (4.19-5.50); Red Cell Distribution Width 15.3 % (11.5-14.5); Segmented Neutrophils % 84.9 %; White Blood Count 9.7 K/mcL (4.3-11.1)
[2020-07-02 03:30] LABS: INR 1.1; Prothrombin Time 12.7 Seconds (9.4-12.1)
[2020-07-02 03:47] LABS: Alanine Aminotransferase 25 Units/L (7-52); Albumin/Globulin Ratio 0.9 (1.1-2.2); Alkaline Phosphatase 54 Units/L (34-104); Aspartate Amino Transferase 20 Units/L (13-39); BUN/Creatinine Ratio 32 (6-26); Bilirubin,Total 0.4 mg/dL (0.3-1.0); Blood Urea Nitrogen 34 mg/dL (8-23); C-Reactive Protein 28 mg/L (Less than 10); Calcium 8.8 mg/dL (8.6-10.3); Carbon Dioxide 26 mEq/L (23-29); Chloride 98 mEq/L (98-107); Globulin 3.3 g/dL (2.4-3.5); Glucose 232 mg/dL (70-105); Lactate Dehydrogenase 294 Units/L (140-271); Magnesium 2.2 mg/dL (1.6-2.6); Osmolality,Calculated 291 (280-300); Potassium 3.9 mEq/L (3.5-5.1); Sodium 133 mEq/L (136-145); Total Protein 6.3 g/dL (6.4-8.9); eGFR For African Americans > 60 (> 60); eGFR For Non-African Americans > 60 (> 60)
[2020-07-02] MEDS: Ipratropium 1 PUFF INHALER IH SCH ×5 (03:57→20:09)
[2020-07-02 04:01] LABS: Ferritin 357 ng/mL (20-250)
[2020-07-02 04:21] LABS: Platelet Estimate Normal (Normal)
[2020-07-02] MEDS: Vancomycin 1,250 MG/262.5 ML IV.SOLN IVPB SCH ×2 (05:00→17:28)
[2020-07-02] MEDS: carvediloL 25 MG TABLET PO SCH ×2 (07:35→16:26)
[2020-07-02] MEDS: Insulin DETEMIR 100 UNIT/ML X5UNITS SUBQ SCH ×2 (07:35→22:51)
[2020-07-02] MEDS: *HR* Enoxaparin 40 MG/0.4 ML SYRINGE SQ SCH ×2 (07:35→22:51)
[2020-07-02] MEDS: amLODIPine 5 MG TABLET PO SCH (07:35)
[2020-07-02] MEDS: Dexamethasone Sodium Phos/PF 10 MG/ML VIAL IVP SCH (07:36)
[2020-07-02] MEDS: Furosemide 20 MG/2 ML VIAL IVP SCH (07:36)
[2020-07-02] MEDS: Insulin LISPRO 300 UNITS/3 ML VIAL SUBQ SCH ×7 (07:37→22:57)
[2020-07-02] MEDS: Pantoprazole 40 MG VIAL IVP SCH (07:40)
[2020-07-02] MEDS: Nystatin Cream 15 GM TUBE TP SCH ×2 (08:10→22:52)
[2020-07-02] MEDS: Budesonide/Formoterol 160/4.5 1 PUFF INH IH SCH ×2 (08:25→20:11)
[2020-07-02] MEDS ORDERED: Dexamethasone Sodium Phos/PF 10 MG/ML VIAL IVP ONE (13:03)
[2020-07-02] MEDS: Remdesivir 100 MG in 0.9 % Sodium Chloride 100 ML IVPB SCH (16:26)
[2020-07-02] MEDS: Aspirin Enteric Coated 81 MG Tablet PO SCH (22:50)
[2020-07-02] MEDS: QUEtiapine Fumarate 25 MG TABLET PO SCH (22:50)
[2020-07-02] MEDS: Saline Nasal Spray 44 ML BOTTLE NS SCH (22:51)
[2020-07-02] MEDS: Chlorhexidine Rinse 15 ML MOUTHWASH MM SCH (22:51)
[2020-07-02] MEDS: Sennosides/Docusate Sodium TABLET PO SCH (22:52)
[2020-07-03] MEDS: Ipratropium 1 PUFF INHALER IH SCH ×7 (00:01→23:26)
[2020-07-03] MEDS: Saline Nasal Spray 44 ML BOTTLE NS SCH ×6 (00:41→20:25)
[2020-07-03 06:16] LABS: INR 1.1
[2020-07-03 06:49] LABS: Alanine Aminotransferase 25 Units/L (7-52); Albumin 3.2 g/dL (3.5-5.7); Albumin/Globulin Ratio 0.9 (1.1-2.2); Alkaline Phosphatase 65 Units/L (34-104); Aspartate Amino Transferase 24 Units/L (13-39); BUN/Creatinine Ratio 36 (6-26); Bilirubin,Total 0.4 mg/dL (0.3-1.0); Blood Urea Nitrogen 38 mg/dL (8-23); Calcium 9.1 mg/dL (8.6-10.3); Carbon Dioxide 23 mEq/L (23-29); Chloride 102 mEq/L (98-107); Ferritin 276 ng/mL (20-250); Globulin 3.6 g/dL (2.4-3.5); Glucose 202 mg/dL (70-105); Hepatitis B Surface Antigen Nonreactive (Nonreactive); Lactate Dehydrogenase 384 Units/L (140-271); Osmolality,Calculated 295 (280-300); Phosphorous 2.9 mg/dL (2.7-4.5); Potassium 4.1 mEq/L (3.5-5.1); Sodium 135 mEq/L (136-145); Total Protein 6.8 g/dL (6.4-8.9); eGFR For African Americans > 60 (> 60); eGFR For Non-African Americans > 60 (> 60)
[2020-07-03 07:18] LABS: Hepatitis B Core IgM Nonreactive (Nonreactive)
[2020-07-03 07:19] LABS: Hepatitis A Antibody IgM Nonreactive (Nonreactive); Hepatitis C Virus Antibody Nonreactive (Nonreactive)
[2020-07-03] MEDS: Furosemide 20 MG/2 ML VIAL IVP SCH (07:25)
[2020-07-03] MEDS: Pantoprazole 40 MG VIAL IVP SCH (07:25)
[2020-07-03] MEDS: carvediloL 25 MG TABLET PO SCH ×3 (07:26→21:50)
[2020-07-03] MEDS: amLODIPine 5 MG TABLET PO SCH (07:26)
[2020-07-03] MEDS: QUEtiapine Fumarate 25 MG TABLET PO SCH ×2 (07:26→20:29)
[2020-07-03] MEDS: lisinopriL 10 MG TABLET PO SCH (07:26)
[2020-07-03] MEDS: Sennosides/Docusate Sodium TABLET PO SCH ×2 (07:27→20:26)
[2020-07-03] MEDS: *HR* Enoxaparin 40 MG/0.4 ML SYRINGE SQ SCH ×3 (07:27→20:26)
[2020-07-03] MEDS: Multivit/Ca/Min/Fe/FA 1 TAB TABLET PO SCH (07:27)
[2020-07-03] MEDS: Chlorhexidine Rinse 15 ML MOUTHWASH MM SCH ×2 (07:28→20:26)
[2020-07-03] MEDS: Insulin DETEMIR 100 UNIT/ML X5UNITS SUBQ SCH ×2 (07:28→20:50)
[2020-07-03] MEDS: polyethylene glycoL 3350 17 GM POWD.PACK PO SCH (07:28)
[2020-07-03] MEDS: Insulin LISPRO 300 UNITS/3 ML VIAL SUBQ SCH ×7 (07:29→20:26)
[2020-07-03] MEDS: Nystatin Cream 15 GM TUBE TP SCH ×2 (07:30→20:29)
[2020-07-03 08:04] LABS: C-Reactive Protein 20 mg/L (Less than 10)
[2020-07-03 08:11] LABS: Basophils % 0.2 %; Hematocrit 44.8 % (37.5-50.1); Immature Granulocytes % 0.9 % (0-4); Mean Corpuscular HGB Conc 32.1 g/dL (31.6-35.5); Mean Corpuscular Hemoglobin 26.8 pg (28.0-33.3); Mean Corpuscular Volume 83.4 fL (83.0-100.0); Mean Platelet Volume 11.5 fL (9.4-12.4); Monocytes # 0.5 K/mcL (0.0-1.3); Monocytes % 4.6 %; Platelet Count 333 K/mcL (140-400); Red Blood Count 5.37 M/mcL (4.19-5.50); Red Cell Distribution Width 15.1 % (11.5-14.5); Segmented Neutrophils % 85.3 %; White Blood Count 11.3 K/mcL (4.3-11.1)
[2020-07-03 08:13] LABS: Hemoglobin 14.4 g/dL (12.9-16.9); Neutrophils # 9.6 K/mcL (1.6-8.9)
[2020-07-03] MEDS: Budesonide/Formoterol 160/4.5 1 PUFF INH IH SCH ×2 (08:25→20:13)
[2020-07-03] MEDS ORDERED: Dexamethasone Sodium Phos/PF 10 MG/ML VIAL IVP SCH (09:00)
[2020-07-03] MEDS: Remdesivir 100 MG in 0.9 % Sodium Chloride 100 ML IVPB SCH (15:52)
[2020-07-03] MEDS: Aspirin Enteric Coated 81 MG Tablet PO SCH (20:25)
[2020-07-04 01:11] LABS: Basophils % 0.2 %; Hematocrit 43.4 % (37.5-50.1); Hemoglobin 13.8 g/dL (12.9-16.9); Immature Granulocytes % 0.9 % (0-4); Lymphocytes % 8.5 %; Mean Corpuscular HGB Conc 31.8 g/dL (31.6-35.5); Mean Corpuscular Hemoglobin 26.3 pg (28.0-33.3); Mean Corpuscular Volume 82.7 fL (83.0-100.0); Mean Platelet Volume 11.1 fL (9.4-12.4); Monocytes # 0.7 K/mcL (0.0-1.3); Monocytes % 5.7 %; Neutrophils # 10.2 K/mcL (1.6-8.9); Platelet Count 373 K/mcL (140-400); Red Blood Count 5.25 M/mcL (4.19-5.50); Red Cell Distribution Width 15.3 % (11.5-14.5); Segmented Neutrophils % 84.7 %
[2020-07-04 01:18] LABS: INR 1.1; Prothrombin Time 13.2 Seconds (9.4-12.1)
[2020-07-04 01:35] LABS: Alanine Aminotransferase 28 Units/L (7-52); Albumin/Globulin Ratio 0.9 (1.1-2.2); Alkaline Phosphatase 54 Units/L (34-104); Aspartate Amino Transferase 23 Units/L (13-39); BUN/Creatinine Ratio 43 (6-26); Bilirubin,Total 0.4 mg/dL (0.3-1.0); Blood Urea Nitrogen 40 mg/dL (8-23); Calcium 9.2 mg/dL (8.6-10.3); Carbon Dioxide 24 mEq/L (23-29); Chloride 105 mEq/L (98-107); Glucose 123 mg/dL (70-105); Magnesium 2.1 mg/dL (1.6-2.6); Osmolality,Calculated 299 (280-300); Phosphorous 3.3 mg/dL (2.7-4.5); Potassium 3.7 mEq/L (3.5-5.1); Sodium 139 mEq/L (136-145); Total Protein 6.4 g/dL (6.4-8.9); eGFR For African Americans > 60 (> 60); eGFR For Non-African Americans > 60 (> 60)
[2020-07-04 01:36] LABS: C-Reactive Protein 10 mg/L (Less than 10); Globulin 3.4 g/dL (2.4-3.5); Lactate Dehydrogenase 271 Units/L (140-271)
[2020-07-04 01:51] LABS: Ferritin 227 ng/mL (20-250)
[2020-07-04] MEDS: Ipratropium 1 PUFF INHALER IH SCH ×5 (03:25→20:40)
[2020-07-04] MEDS: Saline Nasal Spray 44 ML BOTTLE NS SCH ×6 (03:51→20:05)
[2020-07-04] MEDS: Insulin LISPRO 300 UNITS/3 ML VIAL SUBQ SCH ×7 (07:31→20:14)
[2020-07-04] MEDS: Budesonide/Formoterol 160/4.5 1 PUFF INH IH SCH ×2 (08:15→20:43)
[2020-07-04] MEDS: Multivit/Ca/Min/Fe/FA 1 TAB TABLET PO SCH (08:55)
[2020-07-04] MEDS: Sennosides/Docusate Sodium TABLET PO SCH ×2 (08:56→20:12)
[2020-07-04] MEDS: lisinopriL 10 MG TABLET PO SCH (08:56)
[2020-07-04] MEDS: amLODIPine 5 MG TABLET PO SCH (08:56)
[2020-07-04] MEDS: carvediloL 25 MG TABLET PO SCH ×2 (08:56→18:10)
[2020-07-04] MEDS: Chlorhexidine Rinse 15 ML MOUTHWASH MM SCH ×2 (08:57→20:16)
[2020-07-04] MEDS: Pantoprazole 40 MG VIAL IVP SCH (08:57)
[2020-07-04] MEDS: Nystatin Cream 15 GM TUBE TP SCH ×2 (08:59→20:16)
[2020-07-04] MEDS: *HR* Enoxaparin 40 MG/0.4 ML SYRINGE SQ SCH ×2 (08:59→20:13)
[2020-07-04] MEDS: QUEtiapine Fumarate 25 MG TABLET PO SCH ×2 (08:59→20:12)
[2020-07-04] MEDS: polyethylene glycoL 3350 17 GM POWD.PACK PO SCH (08:59)
[2020-07-04] MEDS: Insulin DETEMIR 100 UNIT/ML X5UNITS SUBQ SCH ×2 (09:00→20:13)
[2020-07-04] MEDS ORDERED: Furosemide 20 MG TABLET PO SCH (09:00)
[2020-07-04] MEDS: Aspirin Enteric Coated 81 MG Tablet PO SCH (20:12)
[2020-07-05] MEDS: Saline Nasal Spray 44 ML BOTTLE NS SCH ×5 (00:29→17:32)
[2020-07-05] MEDS: Ipratropium 1 PUFF INHALER IH SCH ×5 (01:48→15:09)
[2020-07-05 07:12] LABS: Basophils % 0.2 %; Eosinophils % 0.2 %; Hematocrit 46.2 % (37.5-50.1); Hemoglobin 14.6 g/dL (12.9-16.9); Immature Granulocytes % 0.8 % (0-4); Lymphocytes # 1.3 K/mcL (0.6-4.6); Lymphocytes % 10.7 %; Mean Corpuscular HGB Conc 31.6 g/dL (31.6-35.5); Mean Corpuscular Hemoglobin 26.5 pg (28.0-33.3); Mean Platelet Volume 11.3 fL (9.4-12.4); Monocytes # 0.9 K/mcL (0.0-1.3); Neutrophils # 9.9 K/mcL (1.6-8.9); Platelet Count 401 K/mcL (140-400); Red Cell Distribution Width 15.6 % (11.5-14.5); Segmented Neutrophils % 81.1 %; White Blood Count 12.2 K/mcL (4.3-11.1)
[2020-07-05] MEDS: Budesonide/Formoterol 160/4.5 1 PUFF INH IH SCH (07:16)
[2020-07-05 07:58] LABS: BUN/Creatinine Ratio 48 (6-26); Blood Urea Nitrogen 46 mg/dL (8-23); Calcium 9.2 mg/dL (8.6-10.3); Carbon Dioxide 24 mEq/L (23-29); Chloride 105 mEq/L (98-107); Glucose 193 mg/dL (70-105); Magnesium 2.2 mg/dL (1.6-2.6); Osmolality,Calculated 305 (280-300); Potassium 4.1 mEq/L (3.5-5.1); Sodium 139 mEq/L (136-145); eGFR For African Americans > 60 (> 60); eGFR For Non-African Americans > 60 (> 60)
[2020-07-05 07:59] LABS: Alanine Aminotransferase 32 Units/L (7-52); Alkaline Phosphatase 64 Units/L (34-104); Aspartate Amino Transferase 25 Units/L (13-39); Ferritin 189 ng/mL (20-250); Lactate Dehydrogenase 301 Units/L (140-271)
[2020-07-05] MEDS ORDERED: Furosemide 20 MG/2 ML VIAL IVP SCH (09:00)
[2020-07-05 09:32] LABS: Albumin/Globulin Ratio 0.9 (1.1-2.2); Bilirubin,Total 0.4 mg/dL (0.3-1.0); C-Reactive Protein < 5 mg/L (Less than 10); Globulin 3.3 g/dL (2.4-3.5); Total Protein 6.3 g/dL (6.4-8.9)
[2020-07-05] MEDS: *HR* Enoxaparin 40 MG/0.4 ML SYRINGE SQ SCH (09:56)
[2020-07-05] MEDS: Sennosides/Docusate Sodium TABLET PO SCH (09:56)
[2020-07-05] MEDS: lisinopriL 10 MG TABLET PO SCH (09:56)
[2020-07-05] MEDS: Chlorhexidine Rinse 15 ML MOUTHWASH MM SCH (09:57)
[2020-07-05] MEDS: amLODIPine 5 MG TABLET PO SCH (09:57)
[2020-07-05] MEDS: carvediloL 25 MG TABLET PO SCH ×2 (09:57→18:06)
[2020-07-05] MEDS: polyethylene glycoL 3350 17 GM POWD.PACK PO SCH (09:57)
[2020-07-05] MEDS: Multivit/Ca/Min/Fe/FA 1 TAB TABLET PO SCH (09:57)
[2020-07-05] MEDS: Pantoprazole 40 MG VIAL IVP SCH (09:57)
[2020-07-05] MEDS: QUEtiapine Fumarate 25 MG TABLET PO SCH (09:57)
[2020-07-05] MEDS: Insulin LISPRO 300 UNITS/3 ML VIAL SUBQ SCH ×6 (09:58→18:07)
[2020-07-05] MEDS: Insulin DETEMIR 100 UNIT/ML X5UNITS SUBQ SCH (10:01)
[2020-07-05] MEDS: Nystatin Cream 15 GM TUBE TP SCH (10:05)
[2020-07-05 10:12] LABS: ABG Base Excess 1 mEq/L (-2 to 3); ABG HCO3 24 mEq/L (21-27); ABG Oxygen Saturation 90 % (95-98); ABG PCO2 34 mmHg (35-45); ABG PH 7.46 pH Units (7.32-7.45); ABG PO2 55 mmHg (85-104); ABG TCO2 25 mEq/L (20-26)
[2020-07-05 15:05] VITALS: BP 120/50
== END 2020-07-05 19:53 | disposition critical access hospital (66) | DRG 871 ==
LOC: 2NENU 20:38 → EMEROOARM 20:38 → SUATTDRO 06-25 01:24 → 2NENU 06-25 02:13 → SUATTDRO 06-25 14:58 → 3BNU 07-03 16:50
PROVIDERS: ADMIT Internal Medicine; ATTEND Internal Medicine

== ENCOUNTER 2020-07-08 14:50 | Inpatient (IN) ==
[2020-07-08] MEDS ORDERED: Acetaminophen 325 MG TABLET PO PRN (17:15)
[2020-07-08] MEDS ORDERED: Ondansetron 4 MG/2 ML VIAL IVP PRN (17:15)
[2020-07-08] MEDS ORDERED: Naloxone 0.4 MG/ML INJ IVP PRN (17:15)
[2020-07-08] MEDS ORDERED: 0.9 % Sodium Chloride 1,000 ML IVC SCH (18:30)
[2020-07-08] MEDS ORDERED: D5% in Water 1,000 ML IVC PRN (18:42)
[2020-07-08] MEDS ORDERED: *HR* Dextrose 50 % in Water (Vial) 50 ML VIAL IVP PRN (18:42)
[2020-07-08] MEDS ORDERED: Dextrose Gel 15 GM/37.5 ML TUBE PO PRN ×2 (18:42)
[2020-07-08 19:34] LABS: INR 1.1; Prothrombin Time 12.3 Seconds (9.4-12.1)
[2020-07-08 19:37] LABS: Basophils % 0.2 %; Eosinophils # 0.2 K/mcL (0.0-0.6); Eosinophils % 2.1 %; Hematocrit 37.8 % (37.5-50.1); Immature Granulocytes % 0.7 % (0-4); Lymphocytes # 1.5 K/mcL (0.6-4.6); Lymphocytes % 13.8 %; Mean Corpuscular HGB Conc 31.7 g/dL (31.6-35.5); Mean Corpuscular Volume 84.9 fL (83.0-100.0); Monocytes # 0.9 K/mcL (0.0-1.3); Monocytes % 8.3 %; Neutrophils # 8.2 K/mcL (1.6-8.9); Platelet Count 289 K/mcL (140-400); Red Blood Count 4.45 M/mcL (4.19-5.50); Red Cell Distribution Width 15.9 % (11.5-14.5); Segmented Neutrophils % 74.9 %
[2020-07-08 19:51] LABS: Calcium 8.6 mg/dL (8.6-10.3); Potassium 4.6 mEq/L (3.5-5.1)
[2020-07-08 19:52] LABS: Phosphorous 4.6 mg/dL (2.7-4.5)
[2020-07-08] MEDS: Insulin LISPRO 300 UNITS/3 ML VIAL SUBQ SCH (19:53)
[2020-07-08] MEDS: *HR* Heparin 5,000 UNIT/ML VIAL SQ SCH (22:43)
[2020-07-09] MEDS: *HR* Heparin 5,000 UNIT/ML VIAL SQ SCH ×3 (05:24→20:27)
[2020-07-09 06:05] LABS: Basophils % 0.1 %; Eosinophils # 0.2 K/mcL (0.0-0.6); Eosinophils % 2.3 %; Hematocrit 36.5 % (37.5-50.1); Hemoglobin 11.4 g/dL (12.9-16.9); Immature Granulocytes % 0.5 % (0-4); Lymphocytes # 1.2 K/mcL (0.6-4.6); Lymphocytes % 12.6 %; Mean Corpuscular HGB Conc 31.2 g/dL (31.6-35.5); Mean Corpuscular Hemoglobin 26.5 pg (28.0-33.3); Mean Corpuscular Volume 84.7 fL (83.0-100.0); Mean Platelet Volume 11.3 fL (9.4-12.4); Monocytes # 0.9 K/mcL (0.0-1.3); Monocytes % 8.9 %; Neutrophils # 7.4 K/mcL (1.6-8.9); Platelet Count 278 K/mcL (140-400); Red Blood Count 4.31 M/mcL (4.19-5.50); Red Cell Distribution Width 15.7 % (11.5-14.5); Segmented Neutrophils % 75.6 %; White Blood Count 9.8 K/mcL (4.3-11.1)
[2020-07-09 06:26] LABS: Calcium 8.5 mg/dL (8.6-10.3); Potassium 4.1 mEq/L (3.5-5.1)
[2020-07-09 07:07] LABS: Hepatitis B Surface Antigen Nonreactive (Nonreactive)
[2020-07-09 07:35] LABS: Hepatitis C Virus Antibody Nonreactive (Nonreactive)
[2020-07-09] MEDS ORDERED: 0.9 % Sodium Chloride 1,000 ML IVC SCH (08:15)
[2020-07-09] MEDS: Insulin LISPRO 300 UNITS/3 ML VIAL SUBQ SCH ×4 (09:04→21:00)
[2020-07-09] MEDS ORDERED: polyethylene glycoL 3350 17 GM POWD.PACK PO PRN (12:04)
[2020-07-09] MEDS: carvediloL 25 MG TABLET PO SCH (16:42)
[2020-07-09 17:29] LABS: Bacteria,Urine Few per hpf (None-Few); Bilirubin,Urine Negative (Negative); Blood,Urine Moderate (Negative); Budding Yeast,Urine Many per hpf (None Seen); Clarity,Urine Turbid (Clear); Color,Urine Light-Yellow (Yellow); Glucose,Urine (UA) 300 mg/dL (Normal); Ketones,Urine Negative (Negative); Leukocyte Esterase,Urine Small (Negative); Mucus,Urine Few per lpf (None-Few); Nitrite,Urine Negative (Negative); Protein,Urine 50 mg/dL (Neg-Trace); RBC,Urine 50-100 per hpf (0-3); Specific Gravity,Urine 1.013 (1.010-1.025); Uric Acid Crystals,Urine Present; Urobilinogen,Urine Normal (Normal)
[2020-07-09] MEDS: Aspirin Enteric Coated 81 MG Tablet PO SCH (20:27)
[2020-07-09] MEDS: Pregabalin 75 MG CAPSULE PO SCH (20:27)
[2020-07-09] MEDS: Nystatin Cream 15 GM TUBE TP SCH ×2 (21:47→21:50)
[2020-07-10] MEDS: *HR* Heparin 5,000 UNIT/ML VIAL SQ SCH ×3 (05:18→20:43)
[2020-07-10 07:55] LABS: Basophils % 0.2 %; Eosinophils # 0.2 K/mcL (0.0-0.6); Eosinophils % 2.1 %; Hematocrit 38.3 % (37.5-50.1); Hemoglobin 11.8 g/dL (12.9-16.9); Immature Granulocytes % 0.9 % (0-4); Lymphocytes # 1.2 K/mcL (0.6-4.6); Lymphocytes % 14.3 %; Mean Corpuscular HGB Conc 30.8 g/dL (31.6-35.5); Mean Corpuscular Hemoglobin 26.2 pg (28.0-33.3); Mean Corpuscular Volume 84.9 fL (83.0-100.0); Mean Platelet Volume 11.5 fL (9.4-12.4); Monocytes # 0.9 K/mcL (0.0-1.3); Monocytes % 10.1 %; Neutrophils # 6.2 K/mcL (1.6-8.9); Platelet Count 275 K/mcL (140-400); Red Blood Count 4.51 M/mcL (4.19-5.50); Red Cell Distribution Width 15.9 % (11.5-14.5); Segmented Neutrophils % 72.4 %; White Blood Count 8.6 K/mcL (4.3-11.1)
[2020-07-10 08:12] LABS: BUN/Creatinine Ratio 33 (6-26); Blood Urea Nitrogen 30 mg/dL (8-23); Calcium 9.1 mg/dL (8.6-10.3); Carbon Dioxide 25 mEq/L (23-29); Chloride 104 mEq/L (98-107); Glucose 165 mg/dL (70-105); Osmolality,Calculated 292 (280-300); Potassium 4.4 mEq/L (3.5-5.1); Sodium 136 mEq/L (136-145); eGFR For African Americans > 60 (> 60); eGFR For Non-African Americans > 60 (> 60)
[2020-07-10] MEDS: rOPINIRole 0.25 MG TABLET PO SCH (08:30)
[2020-07-10] MEDS: carvediloL 25 MG TABLET PO SCH ×2 (08:30→17:03)
[2020-07-10] MEDS: amLODIPine 5 MG TABLET PO SCH (08:30)
[2020-07-10] MEDS: Insulin LISPRO 300 UNITS/3 ML VIAL SUBQ SCH ×4 (08:31→21:12)
[2020-07-10] MEDS: Nystatin Cream 15 GM TUBE TP SCH ×2 (08:40→21:11)
[2020-07-10] MEDS: Pregabalin 75 MG CAPSULE PO SCH (20:43)
[2020-07-10] MEDS: Aspirin Enteric Coated 81 MG Tablet PO SCH (20:43)
[2020-07-11] MEDS: *HR* Heparin 5,000 UNIT/ML VIAL SQ SCH ×3 (05:42→21:33)
[2020-07-11 07:20] LABS: Basophils % 0.1 %; Eosinophils # 0.2 K/mcL (0.0-0.6); Eosinophils % 2.1 %; Hematocrit 40.2 % (37.5-50.1); Hemoglobin 12.6 g/dL (12.9-16.9); Immature Granulocytes % 0.5 % (0-4); Lymphocytes # 1.3 K/mcL (0.6-4.6); Mean Corpuscular HGB Conc 31.3 g/dL (31.6-35.5); Mean Corpuscular Hemoglobin 27.2 pg (28.0-33.3); Mean Corpuscular Volume 86.6 fL (83.0-100.0); Mean Platelet Volume 11.3 fL (9.4-12.4); Monocytes # 0.8 K/mcL (0.0-1.3); Monocytes % 9.1 %; Neutrophils # 6.4 K/mcL (1.6-8.9); Platelet Count 265 K/mcL (140-400); Red Blood Count 4.64 M/mcL (4.19-5.50); Red Cell Distribution Width 15.9 % (11.5-14.5); Segmented Neutrophils % 73.2 %; White Blood Count 8.8 K/mcL (4.3-11.1)
[2020-07-11 07:38] LABS: BUN/Creatinine Ratio 23 (6-26); Blood Urea Nitrogen 19 mg/dL (8-23); Calcium 9.2 mg/dL (8.6-10.3); Carbon Dioxide 25 mEq/L (23-29); Chloride 102 mEq/L (98-107); Glucose 155 mg/dL (70-105); Magnesium 1.9 mg/dL (1.6-2.6); Osmolality,Calculated 287 (280-300); Potassium 4.5 mEq/L (3.5-5.1); Sodium 136 mEq/L (136-145); eGFR For African Americans > 60 (> 60); eGFR For Non-African Americans > 60 (> 60)
[2020-07-11] MEDS: amLODIPine 5 MG TABLET PO SCH (08:28)
[2020-07-11] MEDS: rOPINIRole 0.25 MG TABLET PO SCH (08:30)
[2020-07-11] MEDS: carvediloL 25 MG TABLET PO SCH ×2 (08:30→17:57)
[2020-07-11] MEDS: Insulin LISPRO 300 UNITS/3 ML VIAL SUBQ SCH ×4 (08:36→21:34)
[2020-07-11] MEDS: Nystatin Cream 15 GM TUBE TP SCH ×2 (08:39→21:52)
[2020-07-11] MEDS: Pregabalin 75 MG CAPSULE PO SCH (21:34)
[2020-07-11] MEDS: Aspirin Enteric Coated 81 MG Tablet PO SCH (21:34)
[2020-07-12] MEDS: *HR* Heparin 5,000 UNIT/ML VIAL SQ SCH ×3 (05:19→21:01)
[2020-07-12 06:07] LABS: Basophils % 0.2 %; Eosinophils # 0.2 K/mcL (0.0-0.6); Hematocrit 37.9 % (37.5-50.1); Immature Granulocytes % 0.4 % (0-4); Lymphocytes # 1.2 K/mcL (0.6-4.6); Lymphocytes % 13.1 %; Mean Corpuscular HGB Conc 31.7 g/dL (31.6-35.5); Mean Corpuscular Hemoglobin 27.3 pg (28.0-33.3); Mean Corpuscular Volume 86.1 fL (83.0-100.0); Mean Platelet Volume 11.2 fL (9.4-12.4); Monocytes # 0.9 K/mcL (0.0-1.3); Monocytes % 9.3 %; Platelet Count 243 K/mcL (140-400); White Blood Count 9.3 K/mcL (4.3-11.1)
[2020-07-12 06:23] LABS: BUN/Creatinine Ratio 18 (6-26); Blood Urea Nitrogen 15 mg/dL (8-23); Carbon Dioxide 24 mEq/L (23-29); Chloride 105 mEq/L (98-107); Glucose 180 mg/dL (70-105); Magnesium 1.7 mg/dL (1.6-2.6); Osmolality,Calculated 291 (280-300); Potassium 4.4 mEq/L (3.5-5.1); Sodium 138 mEq/L (136-145); eGFR For African Americans > 60 (> 60); eGFR For Non-African Americans > 60 (> 60)
[2020-07-12] MEDS: Insulin LISPRO 300 UNITS/3 ML VIAL SUBQ SCH ×3 (07:36→16:34)
[2020-07-12] MEDS: rOPINIRole 0.25 MG TABLET PO SCH (07:38)
[2020-07-12] MEDS: amLODIPine 5 MG TABLET PO SCH (07:38)
[2020-07-12] MEDS: Nystatin Cream 15 GM TUBE TP SCH ×2 (07:38→22:01)
[2020-07-12] MEDS: carvediloL 25 MG TABLET PO SCH ×2 (07:38→16:36)
[2020-07-12] MEDS: Insulin DETEMIR 100 UNIT/ML X5UNITS SUBQ SCH (20:59)
[2020-07-12] MEDS: Aspirin Enteric Coated 81 MG Tablet PO SCH (20:59)
[2020-07-12] MEDS: Pregabalin 75 MG CAPSULE PO SCH (21:00)
[2020-07-13 05:31] LABS: Basophils % 0.2 %; Eosinophils # 0.1 K/mcL (0.0-0.6); Hematocrit 36.3 % (37.5-50.1); Hemoglobin 11.5 g/dL (12.9-16.9); Immature Granulocytes % 0.6 % (0-4); Lymphocytes # 1.4 K/mcL (0.6-4.6); Lymphocytes % 11.1 %; Mean Corpuscular HGB Conc 31.7 g/dL (31.6-35.5); Mean Corpuscular Hemoglobin 26.9 pg (28.0-33.3); Mean Platelet Volume 11.9 fL (9.4-12.4); Monocytes % 7.8 %; Platelet Count 232 K/mcL (140-400); Red Blood Count 4.27 M/mcL (4.19-5.50); Red Cell Distribution Width 15.9 % (11.5-14.5); Segmented Neutrophils % 79.3 %; White Blood Count 12.6 K/mcL (4.3-11.1)
[2020-07-13 05:47] LABS: BUN/Creatinine Ratio 19 (6-26); Blood Urea Nitrogen 24 mg/dL (8-23); Calcium 9.2 mg/dL (8.6-10.3); Carbon Dioxide 24 mEq/L (23-29); Chloride 102 mEq/L (98-107); Glucose 184 mg/dL (70-105); Magnesium 1.6 mg/dL (1.6-2.6); Osmolality,Calculated 285 (280-300); Potassium 4.6 mEq/L (3.5-5.1); Sodium 133 mEq/L (136-145); eGFR For African Americans > 60 (> 60); eGFR For Non-African Americans 56 (> 60)
[2020-07-13] MEDS: *HR* Heparin 5,000 UNIT/ML VIAL SQ SCH ×3 (05:54→21:20)
[2020-07-13] MEDS: carvediloL 25 MG TABLET PO SCH ×2 (08:17→17:32)
[2020-07-13] MEDS: rOPINIRole 0.25 MG TABLET PO SCH (08:17)
[2020-07-13] MEDS: amLODIPine 5 MG TABLET PO SCH (08:17)
[2020-07-13] MEDS: lisinopriL 5 MG TABLET PO SCH (08:17)
[2020-07-13] MEDS: Insulin LISPRO 300 UNITS/3 ML VIAL SUBQ SCH ×3 (08:18→17:33)
[2020-07-13] MEDS: Nystatin Cream 15 GM TUBE TP SCH ×2 (08:25→21:20)
[2020-07-13 10:22] LABS: ABG Base Excess 0 mEq/L (-2 to 3); ABG HCO3 26 mEq/L (21-27); ABG Oxygen Saturation 93 % (95-98); ABG PCO2 50 mmHg (35-45); ABG PH 7.33 pH Units (7.32-7.45); ABG PO2 71 mmHg (85-104); ABG TCO2 28 mEq/L (20-26)
[2020-07-13] MEDS: Pregabalin 75 MG CAPSULE PO SCH (20:06)
[2020-07-13] MEDS: Aspirin Enteric Coated 81 MG Tablet PO SCH (20:06)
[2020-07-13] MEDS: Insulin DETEMIR 100 UNIT/ML X5UNITS SUBQ SCH (20:07)
[2020-07-14] MEDS: *HR* Heparin 5,000 UNIT/ML VIAL SQ SCH ×3 (05:19→20:31)
[2020-07-14 06:02] LABS: Basophils % 0.4 %; Eosinophils # 0.2 K/mcL (0.0-0.6); Eosinophils % 1.9 %; Hemoglobin 11.5 g/dL (12.9-16.9); Immature Granulocytes % 0.4 % (0-4); Lymphocytes # 1.1 K/mcL (0.6-4.6); Lymphocytes % 11.8 %; Mean Corpuscular HGB Conc 31.1 g/dL (31.6-35.5); Mean Corpuscular Hemoglobin 26.7 pg (28.0-33.3); Mean Corpuscular Volume 85.8 fL (83.0-100.0); Mean Platelet Volume 11.2 fL (9.4-12.4); Monocytes # 0.7 K/mcL (0.0-1.3); Monocytes % 7.2 %; Neutrophils # 7.5 K/mcL (1.6-8.9); Platelet Count 209 K/mcL (140-400); Red Blood Count 4.31 M/mcL (4.19-5.50); Segmented Neutrophils % 78.3 %; White Blood Count 9.6 K/mcL (4.3-11.1)
[2020-07-14 08:04] LABS: BUN/Creatinine Ratio 24 (6-26); Blood Urea Nitrogen 26 mg/dL (8-23); Calcium 9.1 mg/dL (8.6-10.3); Carbon Dioxide 24 mEq/L (23-29); Chloride 103 mEq/L (98-107); Glucose 154 mg/dL (70-105); Magnesium 1.8 mg/dL (1.6-2.6); Osmolality,Calculated 288 (280-300); Potassium 4.8 mEq/L (3.5-5.1); Sodium 135 mEq/L (136-145); eGFR For African Americans > 60 (> 60); eGFR For Non-African Americans > 60 (> 60)
[2020-07-14] MEDS: lisinopriL 5 MG TABLET PO SCH (09:18)
[2020-07-14] MEDS: amLODIPine 5 MG TABLET PO SCH (09:18)
[2020-07-14] MEDS: carvediloL 25 MG TABLET PO SCH ×2 (09:18→17:32)
[2020-07-14] MEDS: rOPINIRole 0.25 MG TABLET PO SCH (09:18)
[2020-07-14] MEDS: Insulin LISPRO 300 UNITS/3 ML VIAL SUBQ SCH ×3 (09:19→17:33)
[2020-07-14] MEDS: Nystatin Cream 15 GM TUBE TP SCH ×2 (12:31→20:32)
[2020-07-14] MEDS ORDERED: Sulfamethoxazole/Trimeth DS 1 EACH TABLET PO SCH (13:45)
[2020-07-14] MEDS ORDERED: Haloperidol Lactate 5 MG/ML VIAL IM ONE (18:31)
[2020-07-14] MEDS: Vancomycin 2,000 MG/520 ML IV.SOLN IVPB SCH (18:39)
[2020-07-14] MEDS: Pregabalin 75 MG CAPSULE PO SCH (20:30)
[2020-07-14] MEDS: Insulin DETEMIR 100 UNIT/ML X5UNITS SUBQ SCH (20:31)
[2020-07-14] MEDS: Aspirin Enteric Coated 81 MG Tablet PO SCH (20:31)
[2020-07-14] MEDS: Piperacillin/Tazobactam 3.375 GM in 0.9 % Sodium Chloride Mini Bag 100 ML IVPB SCH (23:07)
[2020-07-15] MEDS: *HR* Heparin 5,000 UNIT/ML VIAL SQ SCH ×3 (06:00→21:16)
[2020-07-15] MEDS: Vancomycin 2,000 MG/520 ML IV.SOLN IVPB SCH (06:00)
[2020-07-15] MEDS: lisinopriL 5 MG TABLET PO SCH (08:00)
[2020-07-15] MEDS: amLODIPine 5 MG TABLET PO SCH (08:00)
[2020-07-15] MEDS: rOPINIRole 0.25 MG TABLET PO SCH (08:01)
[2020-07-15] MEDS: Piperacillin/Tazobactam 3.375 GM in 0.9 % Sodium Chloride Mini Bag 100 ML IVPB SCH ×3 (08:01→23:53)
[2020-07-15] MEDS: Insulin LISPRO 300 UNITS/3 ML VIAL SUBQ SCH ×4 (08:02→23:56)
[2020-07-15] MEDS: carvediloL 25 MG TABLET PO SCH (08:02)
[2020-07-15] MEDS: Nystatin Cream 15 GM TUBE TP SCH ×2 (08:31→22:57)
[2020-07-15] MEDS ORDERED: Lactulose Oral Soln 20 GM/30 ML UDC PO ONE (10:49)
[2020-07-15] MEDS: Gentamicin Oint 15 GM TUBE TP SCH (12:04)
[2020-07-15] MEDS ORDERED: Ringers Solution, Lactated 1,000 ML ONE (12:16)
[2020-07-15 12:19] LABS: ABG Base Excess -3 mEq/L (-2 to 3); ABG HCO3 28 mEq/L (21-27); ABG Oxygen Saturation 100 % (95-98); ABG PCO2 86 mmHg (35-45); ABG PH 7.13 pH Units (7.32-7.45); ABG PO2 236 mmHg (85-104); ABG TCO2 31 mEq/L (20-26)
[2020-07-15] MEDS ORDERED: *HR* Midazolam HCl 2 MG/2 ML VIAL IVP ONE (13:26)
[2020-07-15] MEDS ORDERED: *HR* Midazolam HCl 5 MG/5 ML VIAL IVP ONE (13:26)
[2020-07-15] MEDS ORDERED: *HR* Etomidate 20 MG/10 ML AMPUL IVP ONE (13:26)
[2020-07-15] MEDS ORDERED: Ringers Solution, Lactated 1,000 ML IVC SCH (13:30)
[2020-07-15] MEDS ORDERED: *HR* Phenylephrine 10 MG/ML VIAL ONE (13:38)
[2020-07-15 13:51] LABS: Basophils % 0.4 %; Eosinophils # 0.1 K/mcL (0.0-0.6); Eosinophils % 0.9 %; Hematocrit 39.5 % (37.5-50.1); Hemoglobin 11.8 g/dL (12.9-16.9); Immature Granulocytes % 0.5 % (0-4); Lymphocytes # 0.9 K/mcL (0.6-4.6); Lymphocytes % 9.4 %; Mean Corpuscular HGB Conc 29.9 g/dL (31.6-35.5); Mean Corpuscular Hemoglobin 26.3 pg (28.0-33.3); Mean Corpuscular Volume 88.2 fL (83.0-100.0); Mean Platelet Volume 11.7 fL (9.4-12.4); Monocytes # 0.5 K/mcL (0.0-1.3); Monocytes % 5.4 %; Neutrophils # 8.3 K/mcL (1.6-8.9); Platelet Count 184 K/mcL (140-400); Red Blood Count 4.48 M/mcL (4.19-5.50); Red Cell Distribution Width 16.3 % (11.5-14.5); Segmented Neutrophils % 83.4 %
[2020-07-15 14:06] LABS: Alanine Aminotransferase 18 Units/L (7-52); Albumin 3.1 g/dL (3.5-5.7); Albumin/Globulin Ratio 0.7 (1.1-2.2); Alkaline Phosphatase 83 Units/L (34-104); Aspartate Amino Transferase 15 Units/L (13-39); BUN/Creatinine Ratio 21 (6-26); Bilirubin,Direct 0.2 mg/dL (0.0-0.2); Bilirubin,Indirect 0.3 mg/dL (0.0-1.0); Bilirubin,Total 0.5 mg/dL (0.3-1.0); Blood Urea Nitrogen 29 mg/dL (8-23); Calcium 9.4 mg/dL (8.6-10.3); Carbon Dioxide 24 mEq/L (23-29); Chloride 103 mEq/L (98-107); Globulin 4.2 g/dL (2.4-3.5); Glucose 211 mg/dL (70-105); Magnesium 1.9 mg/dL (1.6-2.6); Osmolality,Calculated 296 (280-300); Potassium 5.3 mEq/L (3.5-5.1); Sodium 137 mEq/L (136-145); Total Protein 7.3 g/dL (6.4-8.9); eGFR For African Americans > 60 (> 60); eGFR For Non-African Americans 53 (> 60)
[2020-07-15 14:16] LABS: Troponin I 0.07 ng/mL (< 0.04)
[2020-07-15] MEDS: Norepinephrine 4 MG/254 ML IV.SOLN IVC SCH ×2 (14:23→21:11)
[2020-07-15] MEDS: Midazolam HCl 50 MG/100 ML IV.SOLN IVC SCH (14:23)
[2020-07-15] MEDS: FentaNYL (PF) 1,000 MCG/100 ML IV.SOLN IVC SCH ×2 (14:24→20:47)
[2020-07-15 14:30] LABS: ABG Base Excess -2 mEq/L (-2 to 3); ABG HCO3 25 mEq/L (21-27); ABG Oxygen Saturation 97 % (95-98); ABG PCO2 54 mmHg (35-45); ABG PH 7.28 pH Units (7.32-7.45); ABG PO2 109 mmHg (85-104); ABG TCO2 27 mEq/L (20-26)
[2020-07-15] MEDS ORDERED: Perflutren Lipid Microsphere 1.3 ML in 0.9 % Sodium Chloride 8.7 ML IVP PRN (14:45)
[2020-07-15] MEDS ORDERED: Artificial Tears SOLN 15 ML BOTTLE BOTH EYES PRN (14:47)
[2020-07-15] MEDS ORDERED: Furosemide 40 MG/4 ML VIAL IVP ONE (16:28)
[2020-07-15] MEDS: Artificial Tears SOLN 15 ML BOTTLE BOTH EYES SCH ×3 (16:53→23:36)
[2020-07-15] MEDS ORDERED: Vancomycin 1,500 MG/265 ML IV.SOLN IVPB SCH (19:00)
[2020-07-15] MEDS: Sennosides/Docusate Sodium TABLET PO SCH (21:16)
[2020-07-15] MEDS: Chlorhexidine Rinse 15 ML MOUTHWASH MM SCH (21:16)
[2020-07-15] MEDS: Aspirin Enteric Coated 81 MG Tablet PO SCH (21:17)
[2020-07-15] MEDS: Aspirin 81 MG TAB.CHEW PO SCH (22:57)
[2020-07-16 04:40] LABS: ABG Base Excess 0 mEq/L (-2 to 3); ABG HCO3 24 mEq/L (21-27); ABG Oxygen Saturation 97 % (95-98); ABG PCO2 37 mmHg (35-45); ABG PH 7.42 pH Units (7.32-7.45); ABG PO2 85 mmHg (85-104); ABG TCO2 25 mEq/L (20-26); Blood Gas Modality ASSIST CONTROL; Blood Gas VT 500 cc
[2020-07-16] MEDS: Artificial Tears SOLN 15 ML BOTTLE BOTH EYES SCH ×6 (04:51→23:15)
[2020-07-16] MEDS: Midazolam HCl 50 MG/100 ML IV.SOLN IVC SCH (05:00)
[2020-07-16] MEDS: Norepinephrine 4 MG/254 ML IV.SOLN IVC SCH ×2 (05:45→14:03)
[2020-07-16] MEDS: *HR* Heparin 5,000 UNIT/ML VIAL SQ SCH ×3 (05:55→22:14)
[2020-07-16] MEDS: Insulin LISPRO 300 UNITS/3 ML VIAL SUBQ SCH ×4 (06:05→23:16)
[2020-07-16 06:27] LABS: INR 1.3; Prothrombin Time 14.5 Seconds (9.4-12.1)
[2020-07-16 06:30] LABS: Basophils % 0.4 %; Eosinophils # 0.2 K/mcL (0.0-0.6); Eosinophils % 2.5 %; Hematocrit 34.6 % (37.5-50.1); Hemoglobin 11.1 g/dL (12.9-16.9); Immature Granulocytes % 0.3 % (0-4); Lymphocytes # 1.6 K/mcL (0.6-4.6); Lymphocytes % 17.1 %; Mean Corpuscular HGB Conc 32.1 g/dL (31.6-35.5); Mean Corpuscular Hemoglobin 27.5 pg (28.0-33.3); Mean Corpuscular Volume 85.6 fL (83.0-100.0); Mean Platelet Volume 11.1 fL (9.4-12.4); Monocytes # 0.7 K/mcL (0.0-1.3); Monocytes % 7.5 %; Neutrophils # 6.5 K/mcL (1.6-8.9); Platelet Count 167 K/mcL (140-400); Red Blood Count 4.04 M/mcL (4.19-5.50); Red Cell Distribution Width 16.4 % (11.5-14.5); Segmented Neutrophils % 72.2 %; White Blood Count 9.1 K/mcL (4.3-11.1)
[2020-07-16] MEDS: FentaNYL (PF) 1,000 MCG/100 ML IV.SOLN IVC SCH ×2 (06:47→17:45)
[2020-07-16] MEDS: Chlorhexidine Rinse 15 ML MOUTHWASH MM SCH ×2 (07:54→20:01)
[2020-07-16] MEDS: Sennosides/Docusate Sodium TABLET PO SCH ×2 (07:55→20:01)
[2020-07-16] MEDS: Piperacillin/Tazobactam 3.375 GM in 0.9 % Sodium Chloride Mini Bag 100 ML IVPB SCH ×3 (07:55→23:13)
[2020-07-16] MEDS: Pantoprazole 40 MG VIAL IVP SCH (07:55)
[2020-07-16] MEDS: Nystatin Cream 15 GM TUBE TP SCH ×2 (09:56→20:02)
[2020-07-16] MEDS: Gentamicin Oint 15 GM TUBE TP SCH (09:56)
[2020-07-16 12:02] LABS: Albumin 2.6 g/dL (3.5-5.7); Albumin/Globulin Ratio 0.7 (1.1-2.2); Bilirubin,Total 0.5 mg/dL (0.3-1.0); Calcium 8.8 mg/dL (8.6-10.3); Globulin 3.6 g/dL (2.4-3.5); Potassium 4.1 mEq/L (3.5-5.1); Total Protein 6.2 g/dL (6.4-8.9)
[2020-07-16] MEDS ORDERED: Perflutren Lipid Microsphere 1.3 ML in 0.9 % Sodium Chloride 8.7 ML IVP PRN (13:13)
[2020-07-16] MEDS: Aspirin 81 MG TAB.CHEW PO SCH (20:01)
[2020-07-17] MEDS ORDERED: Vancomycin 1,750 MG/517.5 ML IV.SOLN IVPB SCH
[2020-07-17] MEDS: Artificial Tears SOLN 15 ML BOTTLE BOTH EYES SCH ×6 (03:13→23:23)
[2020-07-17 04:19] LABS: ABG Base Excess -2 mEq/L (-2 to 3); ABG HCO3 25 mEq/L (21-27); ABG Oxygen Saturation 94 % (95-98); ABG PCO2 50 mmHg (35-45); ABG PH 7.31 pH Units (7.32-7.45); ABG PO2 78 mmHg (85-104); ABG TCO2 27 mEq/L (20-26); Blood Gas Modality AF; Blood Gas VT 500 cc
[2020-07-17 04:57] LABS: Basophils % 0.5 %; Eosinophils # 0.1 K/mcL (0.0-0.6); Eosinophils % 1.7 %; Hematocrit 33.2 % (37.5-50.1); Hemoglobin 10.2 g/dL (12.9-16.9); INR 1.3; Immature Granulocytes % 0.4 % (0-4); Lymphocytes # 1.5 K/mcL (0.6-4.6); Lymphocytes % 18.9 %; Mean Corpuscular HGB Conc 30.7 g/dL (31.6-35.5); Mean Corpuscular Hemoglobin 27.3 pg (28.0-33.3); Mean Corpuscular Volume 88.8 fL (83.0-100.0); Monocytes # 0.7 K/mcL (0.0-1.3); Monocytes % 8.2 %; Neutrophils # 5.7 K/mcL (1.6-8.9); Platelet Count 143 K/mcL (140-400); Prothrombin Time 15.1 Seconds (9.4-12.1); Red Blood Count 3.74 M/mcL (4.19-5.50); Red Cell Distribution Width 17.1 % (11.5-14.5); Segmented Neutrophils % 70.3 %; White Blood Count 8.2 K/mcL (4.3-11.1)
[2020-07-17] MEDS: FentaNYL (PF) 1,000 MCG/100 ML IV.SOLN IVC SCH ×2 (05:01→14:32)
[2020-07-17] MEDS: Norepinephrine 4 MG/254 ML IV.SOLN IVC SCH ×2 (05:05→12:13)
[2020-07-17 05:30] LABS: Albumin 2.4 g/dL (3.5-5.7); Albumin/Globulin Ratio 0.7 (1.1-2.2); Bilirubin,Total 0.6 mg/dL (0.3-1.0); Calcium 8.7 mg/dL (8.6-10.3); Globulin 3.6 g/dL (2.4-3.5); Magnesium 1.7 mg/dL (1.6-2.6); Potassium 4.2 mEq/L (3.5-5.1)
[2020-07-17] MEDS: *HR* Heparin 5,000 UNIT/ML VIAL SQ SCH ×3 (05:39→21:27)
[2020-07-17] MEDS: Insulin LISPRO 300 UNITS/3 ML VIAL SUBQ SCH ×3 (05:40→17:38)
[2020-07-17] MEDS: Piperacillin/Tazobactam 3.375 GM in 0.9 % Sodium Chloride Mini Bag 100 ML IVPB SCH ×3 (07:20→23:22)
[2020-07-17] MEDS: Chlorhexidine Rinse 15 ML MOUTHWASH MM SCH ×2 (07:20→20:32)
[2020-07-17] MEDS: Sennosides/Docusate Sodium TABLET PO SCH ×2 (07:20→20:32)
[2020-07-17] MEDS: Pantoprazole 40 MG VIAL IVP SCH (07:20)
[2020-07-17] MEDS: Gentamicin Oint 15 GM TUBE TP SCH (08:16)
[2020-07-17] MEDS: Nystatin Cream 15 GM TUBE TP SCH ×2 (08:17→20:32)
[2020-07-17] MEDS: Albumin 25% 25gram/100mL 25 GM/100 ML IV.SOLN IVPB SCH ×2 (15:58→23:22)
[2020-07-17] MEDS: Aspirin 81 MG TAB.CHEW PO SCH (20:32)
[2020-07-17] MEDS ORDERED: Vancomycin 1 EACH in 0.9 % Sodium Chloride 250 ML IVPB PRN (23:00)
[2020-07-18] MEDS: Insulin LISPRO 300 UNITS/3 ML VIAL SUBQ SCH ×5 (00:28→16:43)
[2020-07-18] MEDS ORDERED: *HR* EPINEPHrine 1 MG/10 ML SYRINGE IVP ONE (01:59)
[2020-07-18] MEDS ORDERED: *HR* Magnesium Sulfate 2 GM/50 ML PIGGYBACK IVPB ONE (01:59)
[2020-07-18 03:41] LABS: Basophils % 0.4 %; Eosinophils # 0.2 K/mcL (0.0-0.6); Eosinophils % 2.6 %; Hematocrit 29.5 % (37.5-50.1); Hemoglobin 9.1 g/dL (12.9-16.9); Immature Granulocytes % 0.4 % (0-4); Lymphocytes # 1.2 K/mcL (0.6-4.6); Lymphocytes % 20.5 %; Mean Corpuscular HGB Conc 30.8 g/dL (31.6-35.5); Mean Corpuscular Hemoglobin 27.3 pg (28.0-33.3); Mean Corpuscular Volume 88.6 fL (83.0-100.0); Mean Platelet Volume 10.7 fL (9.4-12.4); Monocytes # 0.5 K/mcL (0.0-1.3); Monocytes % 9.1 %; Neutrophils # 3.8 K/mcL (1.6-8.9); Platelet Count 106 K/mcL (140-400); Red Blood Count 3.33 M/mcL (4.19-5.50); Red Cell Distribution Width 17.1 % (11.5-14.5); White Blood Count 5.7 K/mcL (4.3-11.1)
[2020-07-18 04:02] LABS: Calcium 8.9 mg/dL (8.6-10.3)
[2020-07-18] MEDS: Artificial Tears SOLN 15 ML BOTTLE BOTH EYES SCH ×5 (04:04→20:01)
[2020-07-18 04:34] LABS: ABG Base Excess -1 mEq/L (-2 to 3); ABG HCO3 25 mEq/L (21-27); ABG Oxygen Saturation 95 % (95-98); ABG PCO2 50 mmHg (35-45); ABG PH 7.32 pH Units (7.32-7.45); ABG PO2 82 mmHg (85-104); ABG TCO2 27 mEq/L (20-26); Blood Gas VT 500 cc
[2020-07-18] MEDS: FentaNYL (PF) 1,000 MCG/100 ML IV.SOLN IVC SCH (05:15)
[2020-07-18] MEDS: *HR* Heparin 5,000 UNIT/ML VIAL SQ SCH ×3 (06:12→21:20)
[2020-07-18] MEDS: Albumin 25% 25gram/100mL 25 GM/100 ML IV.SOLN IVPB SCH ×2 (07:24→16:10)
[2020-07-18] MEDS: Piperacillin/Tazobactam 3.375 GM in 0.9 % Sodium Chloride Mini Bag 100 ML IVPB SCH (07:25)
[2020-07-18] MEDS: Pantoprazole 40 MG VIAL IVP SCH (07:26)
[2020-07-18] MEDS: Sennosides/Docusate Sodium TABLET PO SCH ×2 (07:27→21:21)
[2020-07-18] MEDS: Chlorhexidine Rinse 15 ML MOUTHWASH MM SCH ×2 (07:27→21:20)
[2020-07-18] MEDS: Gentamicin Oint 15 GM TUBE TP SCH (08:01)
[2020-07-18] MEDS: Nystatin Cream 15 GM TUBE TP SCH ×2 (08:01→21:21)
[2020-07-18] MEDS ORDERED: Dexamethasone Sodium Phos/PF 10 MG/ML VIAL IVP SCH (11:00)
[2020-07-18] MEDS ORDERED: Insulin DETEMIR 100 UNIT/ML X5UNITS SUBQ SCH ×2 (11:45→21:00)
[2020-07-18] MEDS ORDERED: Insulin LISPRO 300 UNITS/3 ML VIAL SUBQ SCH (16:32)
[2020-07-18 16:50] LABS: Protein/Creatinine Ratio,Urine 3.47 mg/mg (0.00-0.20)
[2020-07-18 19:30] LABS: Sodium, Urine 35.6 mEq/L
[2020-07-18] MEDS: Aspirin 81 MG TAB.CHEW PO SCH (21:20)
[2020-07-18] MEDS ORDERED: Phenylephrine 50 MG in 0.9 % Sodium Chloride 250 ML IVC SCH (23:00)
[2020-07-18] MEDS ORDERED: Norepinephrine 16 MG in 0.9 % Sodium Chloride 500 ML IVC SCH (23:00)
[2020-07-18 23:20] LABS: VBG Ionized Calcium 1.26 mmol/L (1.15-1.35)
[2020-07-18 23:26] LABS: ABG Base Excess -6 mEq/L (-2 to 3); ABG HCO3 20 mEq/L (21-27); ABG Oxygen Saturation 57 % (95-98); ABG PCO2 40 mmHg (35-45); ABG PH 7.31 pH Units (7.32-7.45); ABG PO2 33 mmHg (85-104); ABG TCO2 21 mEq/L (20-26)
[2020-07-18 23:27] LABS: INR 1.2; Prothrombin Time 14.2 Seconds (9.4-12.1)
[2020-07-18 23:29] LABS: Activated Partial Thrombo Time 33.4 Seconds (26.0-36.0)
[2020-07-18 23:30] LABS: Hematocrit 30.3 % (37.5-50.1); Mean Corpuscular HGB Conc 29.7 g/dL (31.6-35.5); Mean Corpuscular Hemoglobin 26.7 pg (28.0-33.3); Mean Corpuscular Volume 89.9 fL (83.0-100.0); Mean Platelet Volume 11.4 fL (9.4-12.4); Platelet Count 117 K/mcL (140-400); Red Blood Count 3.37 M/mcL (4.19-5.50); White Blood Count 4.7 K/mcL (4.3-11.1)
[2020-07-18 23:31] VITALS: BP 107/58
[2020-07-18] MEDS ORDERED: *HR* EPINEPHrine 1 MG/10 ML SYRINGE ONE (23:33)
[2020-07-18 23:39] LABS: Magnesium 1.7 mg/dL (1.6-2.6); Phosphorous 3.2 mg/dL (2.7-4.5)
[2020-07-19 00:52] LABS: Troponin I 0.03 ng/mL (< 0.04)
== END 2020-07-19 02:00 | disposition expired | DRG 208 ==
LOC: EMEROOARM 14:50 → 2NENU 14:50 → SUATTDRO 17:05 → 2NENU 18:13 → ICNU 07-15 12:43
PROVIDERS: ADMIT Pharmacist; ATTEND Pharmacist